=== PATIENT | male | born 1980 | race Caucasian/White ===

== ENCOUNTER 2019-12-21 09:55 | Inpatient (IN) | payer OTHER ==
[2019-12-21] MEDS ORDERED: Ondansetron INJ* 2 MG/ML VIAL IV ONE ×2 (10:02→13:45)
[2019-12-21] MEDS ORDERED: NS 0.9% 1000 ML** 1,000 ML IV ONE ×5 (10:02→15:04)
[2019-12-21] MEDS ORDERED: Lorazepam PYXIS KEY PRN (10:10)
[2019-12-21] MEDS ORDERED: LORazepam INJ* 2 MG/ML 1 ML VIAL IV PUSH ONE (10:10)
--- NOTE | 2019-12-21 10:17 | ED ---
Nausea/Vomiting/Diarrhea HPI - HPI Summary HPI Summary: This patient is a 39-year-old otherwise healthy male who presents to the ED with a 2 day history of nausea and vomiting and now with hand and leg cramping. He states this has happened to him in the past a few years ago when he became very dehydrated. He does have sweats and chills, usually immediately following his vomiting episodes. He has vomited approximately 5-8 times per day. He has been unable to keep anything down for the past 2 days. He has only tried to drink water, he has not tried to eat. He denies any fevers. He denies any health problems. Takes no medications. Denies any allergies. Patient states he lives with his girlfriend who is not currently ill. He has not eaten anything abnormal. No travel. Also endorses diarrhea x 1. This is controlled and denies any evidence of melena. - History of Current Complaint Chief Complaint: EDNauseaVomitDiarrh Stated Complaint: NAUSEA/ VOMITING CHEST PAIN PER PT Time Seen by Provider: 12/21/19 10:01 Hx Obtained From: Patient Onset/Duration: Sudden Onset Timing: Constant Severity Initially: Moderate Severity Currently: Moderate Pain Intensity: 0 Pain Scale Used: 0-10 Numeric Aggravating Factor(s): Nothing Alleviating Factor(s): Nothing Vomiting Frequency: Every 15-60 minutes Nausea/Vomiting Duration: 12-24 hours Vomiting Characteristics: Retching Diarrhea Presence: Yes Diarrhea Frequency: Daily Diarrhea Duration: 0-12 hours Diarrhea Characteristics: Watery - Risk Factors Influenza Risk Factors: Negative - Allergies/Home Medications Allergies/Adverse Reactions: Allergies Allergy/AdvReac Type Severity Reaction Status Date / Time No Known Allergies Allergy Verified 12/21/19 13:07 PMH/Surg Hx/FS Hx/Imm Hx Previously Healthy: Yes - Immunization History Hx Pertussis Vaccination: No Immunizations Up to Date: Yes Infectious Disease History: No Infectious Disease History: Denies: Traveled Outside the [place] in Last 30 Days - Social History Occupation: Employed Full-time Lives: Alone Alcohol Use: Weekly Hx Substance Use: No Substance Use Type: Reports: None Hx Tobacco Use: No Smoking Status (MU): Never Smoked Tobacco Review of Systems Positive: Chills, Skin Diaphoresis. Negative: Fever, Fatigue Negative: Blurred Vision Negative: Dental Pain Negative: Shortness Of Breath, Cough Positive: Abdominal Pain - LUQ, Vomiting, Diarrhea, Nausea Genitourinary: Negative Positive: no symptoms reported, see HPI Negative: Arthralgia, Myalgia Skin: Negative All Other Systems Reviewed And Are Negative: Yes Physical Exam Triage Information Reviewed: Yes Vital Signs On Initial Exam: Initial Vitals Temp Pulse Resp BP Pulse Ox 98.8 F 131 20 112/91 99 12/21/19 09:58 12/21/19 09:58 12/21/19 09:58 12/21/19 09:58 12/21/19 09:58 Vital Signs Reviewed: Yes Appearance: Positive: Ill-Appearing, Pain Distress, Thin Skin: Positive: Diaphoretic Head/Face: Positive: Normal Head/Face Inspection Eyes: Positive: Conjunctiva Inflammed Neck: Positive: Supple, No Lymphadenopathy Respiratory/Lung Sounds: Positive: Clear to Auscultation, Breath Sounds Present Cardiovascular: Positive: RRR, Pulses are Symmetrical in both Upper and Lower Extremities Musculoskeletal: Positive: Normal, Strength/ROM Intact Neurological: Positive: Speech Normal Psychiatric: Positive: Normal, Affect/Mood Appropriate AVPU Assessment: Alert Procedures - Sedation Patient Received Moderate/Deep Sedation with Procedure: No Diagnostics - Vital Signs Vital Signs Temp Pulse Resp BP Pulse Ox 12/21/19 09:58 98.8 F 131 20 112/91 99 - Laboratory Result Diagrams: 12/21/19 11:00 12/21/19 11:00 Lab Statement: Any lab studies that have been ordered have been reviewed, and results considered in the medical decision making process. Naus/Vom/Diarrhea Course/Dx - Course Course Of Treatment: During the course of treatment, the patient is evaluated for nausea, vomiting, diarrhea. Symptoms have been present 2 days. He hasn't been unable to keep anything down. He states he is dehydrated. He is also endorsing a cramping in his hands and legs. He states he has had this in the past. Endorses intermittent alcohol use every few days, denies smoking history , no drug use. On arrival into the ED, the patient appears in distress. Patient is shaking and states he is concerned about the cramping in his hands and legs. Lungs CTA. RRR. No abd tenderness throughout. Labs obtained. Mag 0.07. CT shows intussusception. Discussed with Dr. Merritt and Dr. Manuel. Pt will be admitted. During his stay, he was given. 3 L fluids, 8 mg Zofran, 10 mg Reglan, 8 mg morphine, Zosyn and 4 mg magnesium. Hepatis panel ordered. - Differential Dx/Diagnosis Provider Diagnosis: Pneumonia, Shortness of breath Condition At Discharge: Fair - Physician Notification/Consults Discussed Case/Management/Disposition Of Patient With: Latia Manuel Instructed by Provider To: Admit As Inpatient Discharge ED - Sign-Out/Discharge Documenting (check all that apply): Patient Departure - Discharge Plan Condition: Fair Disposition: ADMITTED TO [facility] - Billing Disposition and Condition Condition: FAIR Disposition: Admitted to [facility] - Attestation Statements Provider Attestation: I was available for consult. This patient was seen by the ANISH. The patient was not presented to, seen by, or examined by me. Lucho Landa MD Critical Care Provided - Critical Care Note Critical Care Provided For: Critical Care Statement: (Excludes time required for other billable procedures)
[2019-12-21 11:29] LABS: Hematocrit 46 % (42-52); Hemoglobin 16.2 g/dL (14.0-18.0); Mean Corpuscular HGB Conc 35 g/dL (31-36); Mean Corpuscular Hemoglobin 34 pg (27-31); Mean Corpuscular Volume 98 fL (80-94); Mean Platelet Volume 9.4 fL (7.4-10.4); Platelet Count 197 10^3/uL (150-450); Red Blood Count 4.74 10^6 /uL (4.18-5.48); Red Cell Distribution Width 14 % (10-15)
[2019-12-21 11:48] LABS: ABS Lymphocytes 1.1 10^3/ul (1.0-4.8); ABS Monocytes 0.8 10^3/ul (0-0.8); Lymphocyte % 12.7 %; Nucleated Red Blood Cells % 0.1
[2019-12-21 11:54] LABS: ALT 113 U/L (7-52); AST 191 U/L (13-39); Albumin 4.4 g/dL (3.2-5.2); Albumin/Globulin Ratio 0.8 (1-3); Alkaline Phosphatase 181 U/L (34-104); Anion Gap 23 mmol/L (2-11); BUN/Creatinine Ratio 6.6 (8-20); Blood Urea Nitrogen 10 mg/dL (6-24); C Reactive Protein 3.34 mg/L (<8.01); CO2 Carbon Dioxide 34 mmol/L (22-32); Calcium 9.2 mg/dL (8.6-10.3); Chloride 80 mmol/L (101-111); EGFR African American 62.9 (>60); Globulin 5.5 g/dL (2-4); Glucose 116 mg/dL (70-100); Potassium 4.1 mmol/L (3.5-5.0); Sodium 137 mmol/L (135-145); Total Protein 9.9 g/dL (6.4-8.9)
[2019-12-21 11:56] LABS: Alcohol < 10 mg/dL (<10)
[2019-12-21] MEDS ORDERED: Metoclopramide IV* 5 MG/ML 2 ML VIAL IV ONE (12:00)
[2019-12-21] MEDS ORDERED: Morphine 4 MG/ML VIAL (1 ml) 4 MG/ML VIAL IV ONE ×2 (12:00→13:45)
[2019-12-21 12:02] LABS: Magnesium 0.7 mg/dL (1.9-2.7)
[2019-12-21] MEDS ORDERED: Magnesium Sulf 4 GM/100 ML IV* 4,000 MG/100 ML BAG IVPB ONE (12:04)
[2019-12-21] MEDS ORDERED: Iodixanol* (CONTRAST) 320 MG/ML 100 ML SDV IV ONE (12:13)
[2019-12-21 12:31] LABS: Amylase 112 U/L (29-103); Indirect Bilirubin 1.8 mg/dL (0.3-1.0)
[2019-12-21] MEDS ORDERED: Piperacillin/Tazobac ADVAN(*) 3.375 GM in NS 0.9% 100 ML* 100 ML IVPB ONE (12:33)
[2019-12-21 14:01] LABS: Hepatitis B Surface Antigen Nonreactive (Nonreactive)
[2019-12-21 14:18] LABS: Hepatitis B Surface Ab Immune (Immune)
--- NOTE | 2019-12-21 14:30 | CONSULT ---
Consult Consult: Consult- General Surgery CC: Nausea and vomiting x 2 days HPI: 39 yo M presents to ED for nausea and vomiting that began during the evening 2 days ago. Initially he thought it was food poisoning from some chicken he cooked. Yesterday, the N/V became more frequent and he additionally had diarrhea and hand/foot muscle cramping. That day, he also noticed a bright red tinge of blood in his vomit, after continuous retching. Today there has not been much improvement. He feels slightly dizzy. Confirms loss of appetite, eructation, and L sided abdominal muscle pain that he attributes to vomiting. Last BM was this morning, also diarrhea. He felt similarly some years back when he became dehydrated due to environmental factors and alcohol use. Denies blood in stool, fever, chills, chest pain, SOB. Surgical history: Cholecystectomy, indirect hernia repair as child, ulnar collateral ligament reconstruction. Denies problems ever with anesthesia, bleeding, or clotting. Social history: Never smoker. A couple etoh drinks /week. Denies drug use otherwise. PMH: Pancreatitis. Home medications: Denies any. Family history: Adopted. Allergies: NKDA. ROS: 12 point ROS negative, except as otherwise stated above. Temp Pulse Resp BP Pulse Ox 98.8 F 108 20 107/74 95 12/21/19 09:58 12/21/19 14:06 12/21/19 14:14 12/21/19 14:06 12/21/19 14:06 Laboratory Last Values WBC 9.0 10^3/uL (3.5-10.8) 12/21/19 11:00 RBC 4.74 10^6 /uL (4.18-5.48) 12/21/19 11:00 Hgb 16.2 g/dL (14.0-18.0) 12/21/19 11:00 Hct 46 % (42-52) 12/21/19 11:00 MCV 98 fL (80-94) H 12/21/19 11:00 MCH 34 pg (27-31) H 12/21/19 11:00 MCHC 35 g/dL (31-36) 12/21/19 11:00 RDW 14 % (10-15) 12/21/19 11:00 Plt Count 197 10^3/uL (150-450) 12/21/19 11:00 MPV 9.4 fL (7.4-10.4) 12/21/19 11:00 Neut % (Auto) 77.4 % 12/21/19 11:00 Lymph % (Auto) 12.7 % 12/21/19 11:00 Davidson % (Auto) 9.4 % 12/21/19 11:00 Eos % (Auto) 0.0 % 12/21/19 11:00 Baso % (Auto) 0.5 % 12/21/19 11:00 Absolute Neuts (auto) 7.0 10^3/ul (1.5-7.7) 12/21/19 11:00 Absolute Lymphs (auto) 1.1 10^3/ul (1.0-4.8) 12/21/19 11:00 Absolute Monos (auto) 0.8 10^3/ul (0-0.8) 12/21/19 11:00 Absolute Eos (auto) 0.0 10^3/ul (0-0.6) 12/21/19 11:00 Absolute Basos (auto) 0.0 10^3/ul (0-0.2) 12/21/19 11:00 Absolute Nucleated RBC 0.0 10^3/ul 12/21/19 11:00 Nucleated RBC % 0.1 12/21/19 11:00 Sodium 137 mmol/L (135-145) 12/21/19 11:00 Potassium 4.1 mmol/L (3.5-5.0) 12/21/19 11:00 Chloride 80 mmol/L (101-111) L 12/21/19 11:00 Carbon Dioxide 34 mmol/L (22-32) H 12/21/19 11:00 Anion Gap 23 mmol/L (2-11) H 12/21/19 11:00 BUN 10 mg/dL (6-24) 12/21/19 11:00 Creatinine 1.51 mg/dL (0.67-1.17) H 12/21/19 11:00 Est GFR ( Amer) 62.9 (>60) 12/21/19 11:00 Est GFR (Non-Af Amer) 52.0 (>60) 12/21/19 11:00 BUN/Creatinine Ratio 6.6 (8-20) L 12/21/19 11:00 Glucose 116 mg/dL (70-100) H 12/21/19 11:00 Lactic Acid 9.3 mmol/L (0.5-2.0) H* 12/21/19 11:00 Calcium 9.2 mg/dL (8.6-10.3) 12/21/19 11:00 Magnesium 0.7 mg/dL (1.9-2.7) L* 12/21/19 11:00 Total Bilirubin 3.10 mg/dL (0.2-1.0) H 12/21/19 11:00 Direct Bilirubin 1.30 mg/dL (0.03-0.18) H 12/21/19 11:00 Indirect Bilirubin 1.8 mg/dL (0.3-1.0) H 12/21/19 11:00 AST 191 U/L (13-39) H 12/21/19 11:00 ALT 113 U/L (7-52) H 12/21/19 11:00 Alkaline Phosphatase 181 U/L (34-104) H 12/21/19 11:00 C-Reactive Protein 3.34 mg/L (<8.01) 12/21/19 11:00 Total Protein 9.9 g/dL (6.4-8.9) H 12/21/19 11:00 Albumin 4.4 g/dL (3.2-5.2) 12/21/19 11:00 Globulin 5.5 g/dL (2-4) H 12/21/19 11:00 Albumin/Globulin Ratio 0.8 (1-3) L 12/21/19 11:00 Amylase 112 U/L (29-103) H 12/21/19 11:00 Lipase 171 U/L (11.0-82.0) H 12/21/19 11:00 Serum Alcohol < 10 mg/dL (<10) 12/21/19 11:00 Additional labs: Hep C positive PEX General: Alert, in NAD. Slight tremor. Integumentary: No jaundice, lesions, petechia. HEENT: Oropharynx clear. Trachea midline. PERRLA. Heart: Tachycardic. S1, S2 present. No murmurs, rubs, or gallups. Lungs: CTAB, no WRR. ABD: BS present. Soft, nondistended. Mild tenderness in epigastrium and left abdomen. No guarding or rebound tenderness. Extremities: Distal pulses intact bilaterally. No edema. Calves soft and nontendner. CT abd/pelvis w: 2 separate short segment of intussusception of the small bowel without obstruction. Fatty infiltrate of the liver. Diverticulosis. Assessment and plan: 39 yo M with nausea and vomiting, intussusception on CT. IV fluid resuscitation, nausea control, replete magnesium. He is not in need of immediate surgical intervention. Discussed with Dr. Merritt, surgeon residential direct support professional.
[2019-12-21 14:39] LABS: Hepatitis C Antibody Reactive (Negative)
[2019-12-21] MEDS ORDERED: Morphine INJ* 2 MG/ML 1 ML SYRINGE (TWO MG - NEW SYRINGE VERSION) IV PRN (14:48)
[2019-12-21] MEDS ORDERED: Albuterol/Ipratropium NEB.SOL* (2.5/0.5 MG) 3 ML NEB.SOLN INH PRN (14:48)
--- NOTE | 2019-12-21 15:26 | HP ---
History of Present Illness - History of Present Illness Reason for Visit: Nausea and vomitting History of Present Illness: 39 yo M with no significant medical history other than pancreatitis leading to a cholecystectomy in 2014, he presented to ED for nausea and vomiting beginning since Thursday. It also accompanied with liquid diarrhea, and mild abdominal pain. Initially he thought it was food poisoning from some chicken he cooked. Yesterday, he continued to have nausea and vomiting, he was unable to take food or liquid since Thursday. He didn't pee since yesterday. His last BM was this morning 3am, still liquid, no blood seen. He did notice some blood tinged vomitus as well, but that was transient. He did have mild abdominal pain which was not bothering him, initially in the LLQ, now going to RLQ. When I saw him in ED, he was having bad hiccups, he was shaking, he contributed to his severe dehydration. He denied any fever in the past few days, no chills, no cough, no SOB. In ED, he was given IV NS 3L in total, one dose of IV Mg. He was given ativan one dose as well for his tremor. He was found to have transaminitis with elevated bilirubin, elevated amylase and lipase, CTAP revealed 2 separate short segment of intussusception of the small bowel without obstruction. He was screened for hepc which is back positive, he admitted that he had 50 sexual partners when returned for further history, also he admitted weight loss. - Past Medical History Past Medical History: Pancreatitis which lead to cholecystectomy in 2015 Denied other medical history, no PCP - Past Surgical History Past Surgical History: Cholecystectomy for pancreatitis in 2015 Indirect hernia repair as child ulnar collateral ligament reconstruction. - Past Family History Past Family History: Adopted, no contact with family members - Past Social History Past Social History: Moved from [place] 4 months ago to stay together with his current girlfriend who works in [employer]. Stays with his girlfriend, had 50 sexual partners in total. Never smoker. 2-3 etoh drinks /week. Denies drug use otherwise. Medications: Home Medications Medication Instructions Recorded Confirmed Type NK [No Home Medications Reported] 12/21/19 12/21/19 History Allergies/Adverse Reactions: Allergies Allergy/AdvReac Type Severity Reaction Status Date / Time No Known Allergies Allergy Verified 12/21/19 13:07 Review of Systems - Review of Systems Constitutional: Negative: Fever, Chills, Sweats, Malaise, Other Eyes: Negative: Pain, Vision Change, Conjunctivae Inflammation, Eyelid Inflammation, Redness, Other ENT: Negative: Ear Pain, Ear Discharge, Nose Pain, Nose Discharge, Nose Congestion, Mouth Pain, Mouth Swelling, Throat Pain, Throat Swelling, Other Respiratory: Negative: Cough, Dry, Shortness of Breath, Hemoptysis, SOB with Excertion, Pleuritic Pain, Sputum, Wheezing Cardiovascular: Negative: Chest Pain, Palpitations, Orthopnea, Paroxysmal Noc. Dyspnea, Edema, Light Headedness, Other Gastrointestinal: Positive: Nausea, Vomiting, Abdominal Pain, Diarrhea. Negative: Constipation, Melena, Hematochezia, Other Genitourinary: Negative: Dysuria, Frequency, Incontinence, Hematuria, Retention , Other Musculoskeletal: Negative: Neck Pain, Shoulder Pain, Arm Pain, Back Pain, Hand Pain, Leg Pain, Foot Pain, Other Skin: Positive: Rash - macular rashes with scaly appearance on bilateral ni Neurological/Mental Status: Positive: Weakness. Negative: Numbness, Incoordination, Change in Speech, Confusion, Seizures, Other Exam Vital Signs: Vital Signs (72 hours) 12/21/19 12/21/19 12/21/19 09:58 10:36 11:00 Temperature 98.8 F Pulse Rate 131 110 Respiratory 20 13 19 Rate Blood Pressure 112/91 117/87 (mmHg) O2 Sat by Pulse 99 96 Oximetry 12/21/19 12/21/19 12/21/19 11:05 11:06 11:36 Temperature Pulse Rate Respiratory 20 28 19 Rate Blood Pressure 109/86 119/93 (mmHg) O2 Sat by Pulse Oximetry 12/21/19 12/21/19 12/21/19 12:00 12:06 12:36 Temperature Pulse Rate Respiratory 12 23 17 Rate Blood Pressure 123/90 117/95 (mmHg) O2 Sat by Pulse Oximetry 12/21/19 12/21/19 12/21/19 12:37 13:06 13:36 Temperature Pulse Rate 101 99 Respiratory 18 10 Rate Blood Pressure 124/83 (mmHg) O2 Sat by Pulse 97 94 Oximetry 12/21/19 12/21/19 12/21/19 14:00 14:06 14:14 Temperature Pulse Rate 101 108 Respiratory 22 25 20 Rate Blood Pressure 107/74 (mmHg) O2 Sat by Pulse 95 95 Oximetry Exam: General: Alert, in NAD. skinny looking, slight tremor. Integumentary: No jaundice, macular rashes seen in back and scattered on lower abdomen, arms and legs, scaly appearance, no central clearance. HEENT: Oropharynx clear. Trachea midline. PERRLA. Mouth: shortening teeth with many missing teeth, some decay seen Heart: Tachycardic. S1, S2 present. No murmurs, rubs, or gallops. Lungs: clear on auscultation. ABD: BS present. Soft, nondistended. Mild tenderness in LUQ. No guarding or rebound tenderness. Extremities: Distal pulses intact bilaterally. No edema. Calves soft and nontendner. Result Diagrams: 12/21/19 11:00 12/21/19 11:00 EKG Data: EKG: QT prolongation, sinus rhythm. Assessment/Plan - Assessment/Plan Assessment: 39 yo M with no significant medical history other than pancreatitis and cholecystectomy in 2014, he presented to ED for nausea and vomiting beginning since Thursday, found to have transaminitis with elevated bilirubin, elevated amylase and lipase, CTAP revealed 2 separate short segment of intussusception of the small bowel without obstruction. He will be admitted to [facility]. Plan: 1. Nausea and vomiting - it's still difficult to tie his lab finding with his CTAP finidngs together. Not sure whether it's his liver function with elevated tehodore lead to this, or it is due to his intersucception. - His liver function is revealing possible bile duct obstruction however CTAP didn't find so. I still have the concern whether this still could be choledocholiathiasis, and whether a MRCP will be needed for that. We called GI consult for this - Surgical team is involved also, awaiting their opinion - NPO now - IV hydration, symptomatic treatment, correcting electrolyte for now - his initial ekg showing prolonged QT interval, it needs to be repeated after replacing electrolytes 2. Intersucception with no obstruction seen - surgical team was consulted for further plan - npo - iv morphine prn 3. lactic acidosis - i ordered another bolus NS and continuous NS 150ml/h - he will be trended for lactic acid - strict i/o to evaluate urine output since patient is severely dehydrated 4. Hepatitis C screen positive - added on hepC RNA - will test HIV and syphilis as well - urine drug screen although pt denied 5. Rash - likely tinea corporis, need to rule out syphillis and HIV - topical fungal cream for now 6. DVT prophylaxis - ambulatory for now
[2019-12-21] MEDS: NS 0.9% 1000 ML** 1,000 ML IV SCH (16:09)
[2019-12-21 16:15] LABS: INR 1.45 (0.82-1.09)
--- NOTE | 2019-12-21 16:30 | PN ---
Progress Note - Progress Note Date of Service: 12/21/19 Note: Patient seen and examined Care discussed with Jatin Lanier and Dr. Manuel History and labs/CT reviewed 2-3 days of N/V and loose BM's with some upper abdominal pain- no fevers, headache. No jaundice, denies IVDA, no travel, no one at home ill, drinks alcohol socially. Lives with girlfriend PEX: Afebrile-HR in 90's Awake and alert, appears anxious and restless Abd is soft and non-distended. Bowel sounds present, no hernias, some mild pain upper quadrants, no lower pain, no rebound or peritoneal irritation. Labs noted CT-2 areas of short segment small bowel instussception without obstruction, also diffuse attenuation of the liver. ? etiology. I think the small bowel findings are incidental and are not causing obstruction- his overall picture is not consistent with a bowel obstruction or bowel ischemia. He appears very dehydrated and has elevated lactic acidosis. Initial hepatitis antibody positive-? significance, awaiting PCR. For now would recommend aggressive fluid rescusitation and observation. He has been seen also by GI. I do not believe there is urgent indication for laparoscopy/laparotomy at this time but this could change depending on clinical course and we will follow closely with you.
[2019-12-21 16:40] LABS: Creatine Kinase 127 U/L (10-223)
--- NOTE | 2019-12-21 17:35 | CONS ---
CC: Dr. Manuel GASTROENTEROLOGY CONSULT REPORT: DATE OF CONSULT: 12/21/19 LOCATION: The patient was seen in the ED. REQUESTING PROVIDER: Dr. Manuel. REASON FOR CONSULT: Abnormal labs. HISTORY OF PRESENT ILLNESS: Mr. Mcintyre is a 39-year-old gentleman with history of acute pancreatitis in the past, who presents with severe nausea, vomiting, diarrhea. Mr. Mcintyre reports that he was in his usual state of health until Thursday. At that time, he developed severe nausea, vomiting, and diarrhea. He has vomited many times since onset of symptoms. Vomiting has not contained any blood. He estimates having at least 15 bowel movements per day. Stool has been brown and watery, although today it is less watery and more stringy. He has not seen any blood in the diarrhea. He has complained of abdominal pain in the right mid and lower abdomen as well as the left mid and lower abdomen. The pain seems to worsen before he vomits. He has never had symptoms like this in the past. Because of the severity of the symptoms, he has been unable to tolerate any p.o. intake in at least the last day or two. He thinks he urinated 3 times yesterday. He describes the urine as being very dark and sinking to the bottom of the toilet. He has not urinated today. He feels very dehydrated. He complains of feeling tremulous and anxious. He has also noticed hand and leg cramping. He denies any alcohol use, medication use, drug use or ingestion of any substances. He and his girlfriend have been isolating at home without any recent exposure to other people or sick contacts. His girlfriend is feeling well. On review of history, Mr. Mcintyre reports that he was hospitalized with pancreatitis in 2014. He was told he also had diverticulitis at that time. He said that there was a workup, but no cause of the pancreatitis was found. He was noted to have gallstones, so he underwent a cholecystectomy after that episode. He adamantly denies any IV drug use. No blood transfusions in the past. No tattoos. He did tell the primary team that he has had at least 50 sexual partners. He was not aware of a diagnosis of hepatitis C or hepatitis exposure in the past. On arrival to the ED, Mr. Deperro was noted to have tachycardia with normal temperature and blood pressure. Labs demonstrated significant abnormalities. He has a very low chloride of 80, creatinine 1.51, lactic acid of 9.3, magnesium 0.7, total bilirubin 3.1, AST 191, ALT 113, alk phos 181, lipase 171. Hepatitis C antibody was reactive. Serum alcohol was negative. CT abdomen and pelvis was performed, which demonstrated 2 separate short segments of intussusception of the small bowel. There was one in the proximal jejunum as well as a short segment of ileoileal intussusception. There were multiple diverticula in the sigmoid colon noted. Liver was noted to be diffusely low in attenuation suggestive of fatty infiltration. There were no liver masses. No intra or extrahepatic biliary dilation noted. Pancreas appeared normal. Spleen appeared normal. GI consulted. PAST MEDICAL HISTORY: 1. Episode of acute pancreatitis in 2014. It appears that this was attributed to gallstones. 2. Anxiety. PAST SURGICAL HISTORY: Cholecystectomy and elbow surgery. MEDICATIONS: None. The patient also denies any nonsteroidal use, Tylenol use, or supplements. ALLERGIES: No known drug allergies. FAMILY HISTORY: No relevant family history noted. SOCIAL HISTORY: The patient is from [place]. Recently moved to [place]. He lives with his girlfriend. Not working at this time. Denies any smoking. Reports occasional alcohol use. He says he will drink socially and drink 2 to 3 alcoholic beverages at a time. Denies any IV drug use or other drug use. REVIEW OF SYSTEMS: A 10-point systems reviewed and negative except as mentioned above. Of note, the patient denies any fever. He reports that his weight fluctuates. Denies any significant recent weight loss. PHYSICAL EXAM: Vital Signs: Afebrile, heart rate initially 131. Most recent heart rate 90s. Blood pressure 131/84. Respiratory rate 20. 95% on room air. General: Tremulous, thin gentleman. Pleasant and cooperative with interview. HEENT: Small ground-down appearing front teeth Cardiovascular: Intermittently tachycardic. Pulmonary: Breathing comfortably. Abdomen: Soft and nondistended. No guarding. Mildly tender diffusely, although more noticeably in the lower quadrants. Extremities: Thin. Tremulous. DIAGNOSTIC STUDIES/LAB DATA: Labs reviewed. White count 9, hemoglobin 16.2, hematocrit 46, MCV 98, platelet count 197. Differential is within normal limits. Comprehensive panel reviewed. Chloride 80, carbon dioxide 34 with an anion gap of 23, BUN 10, creatinine 1.51, glucose 116, lactic acid 9.3, magnesium 0.7. Bilirubin 3.1 with a direct component of 1.3 and indirect component of 1.8, AST 191, ALT 113, alk phos 181 with a GGT of 1502. CRP of 3.34. Total protein of 9.9, albumin 4.4. Amylase 112, lipase 171 with an upper limit of normal 82. Serum alcohol less than 10. Hepatitis B antibody immune, hepatitis C surface antigen nonreactive, hepatitis C antibody reactive. Imaging: CT abdomen and pelvis reviewed in HPI. There were 2 separate short segments of intussusception in the small bowel as well as fatty infiltration of the liver and diverticulosis. IMPRESSION AND RECOMMENDATIONS: Mr. Mcintyre is a 39-year-old gentleman with history of pancreatitis attributed per report to gallstones, who is admitted with severe acute nausea, vomiting, diarrhea, and abdominal pain. Several days of acute severe nausea/vomiting, abdominal pain, and diarrhea. Significant lab abnormalities, including: hypochlorhydria, acute kidney injury, significant lactic acidosis, severe hypomagnesemia, predominantly indirect hyperbilirubinemia, and elevated AST, ALT , and alk phos. It is certainly possible that a number of the patient's lab abnormalities may be secondary to hypovolemia. Possible that an infectious etiology underlies the intussusception and GI symptoms. Agree with supportive care in form of aggressive fluid resuscitation and electrolyte management. Further work-up can be directed by trend of labs and symptoms. # Elevated LFTs: Mixed pattern. No biliary dilation on CT. May be related to acute infectious process or toxin/drug ingestion (although patient denies). Chronic underlying liver disease also considered. Elevated lactate may be related to decreased clearance from hepatic or renal disease. - Repeat labs, including LFTs, this evening and tomorrow to better assess trend after fluid resuscitation - Check INR - Recommend checking CK given elevated AST - Recommend hemolysis labs given indirect hyperbilirubinemia - Check Hep C PCR to clarify if Hep C Ab indicates resolved or chronic infection - Urine drug screen ordered. - Consider further labs to evaluate for alternate explanations for liver disease if lab abnormalities persist - Consider MRCP given elevated Alk phos and mildly elevated direct bilirubin, although I have a lower suspicion for obstructive process. # Diarrhea, Vomiting, Small Bowel Intussusception: Favor infectious etiology given acute onset. Crohn's less likely, particularly given normal CRP. Malignancy also less likely given two separate foci of intussusception unless there is an infiltrative process. Elevated lactate can occur from bowel ischemia related to intussusception, although the imaging findings are not particularly impressive. - Send stool culture - Consider MR enterography (vs UGI series) to evaluate small bowel further - Surgery consulted. # Elevated Lipase: Lipase 2 times ULN. No pancreatitis on imaging. Clinical symptoms not typical for pancreatitis. May be related to significant volume depletion and acute illness. - Monitor for now. Thank you very much for this consult. GI will continue to follow along. [id number]/[facility] #: [id number] NISHI
[2019-12-21] MEDS: LORazepam TAB(*) 1 MG PO SCH ×4 (17:50→23:25)
[2019-12-21] MEDS ORDERED: Thiamine INJ* 100 MG/ML 2 ML VIAL IM ONE (18:00)
[2019-12-21 19:12] LABS: Urine Appearance Cloudy; Urine Bilirubin Negative (Negative); Urine Blood Negative (Negative); Urine Color Amber; Urine Glucose Negative (Negative); Urine Ketones 1+ (Negative); Urine Nitrite Negative (Negative); Urine Protein 1+(30 mg/dL) (Negative); Urine Urobilinogen Positive (Negative)
[2019-12-21 19:19] LABS: Urine Bacteria Absent (Absent); Urine Red Blood Cell Absent (Absent); Urine White Blood Cell Absent (Absent)
[2019-12-21 19:44] LABS: HIV 4th Generation Nonreactive (Nonreactive)
[2019-12-21 20:01] LABS: EGFR African American 101.2 (>60); EGFR Non-African American 83.6 (>60); Magnesium 2.1 mg/dL (1.9-2.7); Potassium 3.1 mmol/L (3.5-5.0)
[2019-12-21 20:08] LABS: Calcium 6.2 mg/dL (8.6-10.3)
[2019-12-21] MEDS: Ondansetron INJ* 2 MG/ML VIAL IV PRN (20:45)
[2019-12-21] MEDS ORDERED: Potassium Chlor TAB* 20 MEQ TAB.ER PO ONE (21:00)
[2019-12-21] MEDS ORDERED: CALCIUM GLUCONATE 1GM/50ML NS 1 GM/50 ML BAG IV ONE (21:00)
[2019-12-22] MEDS: LORazepam TAB(*) 1 MG PO SCH ×2 (01:23→16:58)
[2019-12-22] MEDS: Ondansetron INJ* 2 MG/ML VIAL IV PRN (01:24)
[2019-12-22] MEDS ORDERED: Lorazepam PYXIS KEY PRN (01:43)
[2019-12-22] MEDS ORDERED: Ziprasidone IM INJ* 20 MG/ML VIAL IM ONE ×2 (02:19→04:09)
[2019-12-22] MEDS ORDERED: PROCHLORPERAZINE INJ 5 MG/ML 2 ML VIAL IV PRN (02:20)
[2019-12-22] MEDS: Pantoprazole IV* 40 MG IV SCH ×2 (03:08→14:12)
[2019-12-22] MEDS: LORazepam INJ* 2 MG/ML 1 ML VIAL IV PUSH PRN ×2 (03:37→10:24)
[2019-12-22] MEDS ORDERED: LORazepam INJ* 2 MG/ML 1 ML VIAL IV PUSH ONE (04:05)
[2019-12-22] MEDS: NS 0.9% 1000 ML** 1,000 ML IV SCH ×2 (04:26→12:09)
[2019-12-22 08:02] LABS: Albumin 2.7 g/dL (3.2-5.2); CO2 Carbon Dioxide 22 mmol/L (22-32); Calcium 6.6 mg/dL (8.6-10.3); Chloride 100 mmol/L (101-111); Sodium 134 mmol/L (135-145)
[2019-12-22 08:08] LABS: ALT 62 U/L (7-52); Albumin/Globulin Ratio 0.7 (1-3); Alkaline Phosphatase 110 U/L (34-104); BUN/Creatinine Ratio 10.5 (8-20); Blood Urea Nitrogen 9 mg/dL (6-24); EGFR African American 120.4 (>60); EGFR Non-African American 99.5 (>60); Globulin 3.7 g/dL (2-4); Glucose 81 mg/dL (70-100); Total Protein 6.4 g/dL (6.4-8.9)
[2019-12-22 08:13] LABS: Anion Gap 12 mmol/L (2-11)
[2019-12-22 09:56] LABS: ABS Lymphocytes 1.1 10^3/ul (1.0-4.8); ABS Monocytes 0.4 10^3/ul (0-0.8); ABS Neutrophils 3.9 10^3/ul (1.5-7.7); Eosinophil % 0.6 %; Hematocrit 34 % (42-52); Hemoglobin 11.7 g/dL (14.0-18.0); Lymphocyte % 20.2 %; Mean Corpuscular HGB Conc 34 g/dL (31-36); Mean Corpuscular Hemoglobin 34 pg (27-31); Mean Corpuscular Volume 99 fL (80-94); Mean Platelet Volume 8.5 fL (7.4-10.4); Platelet Count 119 10^3/uL (150-450); Red Blood Count 3.45 10^6 /uL (4.18-5.48); Red Cell Distribution Width 15 % (10-15); White Blood Count 5.5 10^3/uL (3.5-10.8)
[2019-12-22 10:04] LABS: INR 1.5 (0.82-1.09)
[2019-12-22] MEDS: Thiamine TAB* 100 MG TAB PO SCH (10:06)
[2019-12-22] MEDS: Multivitamins/Minerals TAB PO SCH (10:06)
[2019-12-22 10:13] LABS: Potassium Redraw 3.3 mmol/L (3.5-5.0)
--- NOTE | 2019-12-22 11:01 | PN ---
Progress Note - Progress Note Date of Service: 12/22/19 Note: Surgery Progress: S: (apparently being ruled out for Covid 2/2 GI sx). States he has abd pain, mostly left-sided, colicky in nature. Admits to nausea and has vomited last night and this a.m. States he has passed both flatus and stool. O: Vital Signs - 8 hr 12/22/19 12/22/19 12/22/19 03:22 03:37 04:20 Temperature 98.5 F Pulse Rate 91 Respiratory 20 20 20 Rate Blood Pressure 115/93 (mmHg) O2 Sat by Pulse 98 Oximetry 12/22/19 12/22/19 12/22/19 05:20 06:31 06:32 Temperature 98.2 F Pulse Rate 84 Respiratory 20 20 20 Rate Blood Pressure 92/68 (mmHg) O2 Sat by Pulse 98 Oximetry 12/22/19 12/22/19 12/22/19 07:25 08:00 08:51 Temperature 98.7 F 98.9 F Pulse Rate 94 89 Respiratory 14 16 16 Rate Blood Pressure 105/63 116/72 (mmHg) O2 Sat by Pulse 97 100 Oximetry 12/22/19 12/22/19 10:17 10:24 Temperature 98.1 F Pulse Rate 89 Respiratory 16 16 Rate Blood Pressure 109/68 (mmHg) O2 Sat by Pulse 100 Oximetry Intake and Output Last 24 Hours 12/20/19 12/21/19 12/22/19 12/23/19 06:59 06:59 06:59 06:59 Intake Total 3290 Output Total 1200 1000 Balance 2090 -1000 Weight 132 lb Intake: IV Fluids 3080 MAG 100 NS (0.9%) 2980 Oral 210 Output: Urine 400 1000 Emesis 800 Other: Estimated Void Large Large # Voids 1 1 Gen: mildly agitated, but cooperative and oriented Heart: reg Lungs: clear Abd: mildly distended (per pt); BS+; soft; mild to moderate tenderness to left of midline w/ some vol guarding. He is able to relax and allow deeper palpation. No specific mass. No peritoneal signs. Labs: Laboratory Tests 12/21/19 12/21/19 12/22/19 11:00 11:00 07:38 WBC 9.0 Hgb 16.2 Potassium Lactic Acid Total Bilirubin 3.10 H 1.80 H GGT 1502 H AST 191 H ALT 113 H 62 H Alkaline Phosphatase 181 H 110 H Amylase 112 H Lipase 171 H 12/22/19 12/22/19 12/22/19 09:47 09:47 09:47 WBC 5.5 Hgb 11.7 L Potassium 3.3 L Lactic Acid 0.7 Total Bilirubin GGT AST 100 H ALT Alkaline Phosphatase Amylase 69 Lipase 90 H A: abd pain, N/V; intussusception on CT, with some overall improvement on clinical exam P: cont NPO for now; patient being transferred to for PUI. Will continue to follow, but no immediate concerns for surgical intervention. Patient understands that he may yet require surgery.
--- NOTE | 2019-12-22 12:28 | PN ---
Progress Note - Progress Note Date of Service: 12/22/19 Note: Surgery Progress Note I saw and examined this patient this morning. I reviewed his clinical information. He is a 39 yo M who presented to the ED yesterday with abdominal pain, nausea, emesis, diarrhea and somewhat altered mental status. He had multiple electrolyte abnormalities, including elevated bilirubin, LFTs, lipase, lactate. On abdominal CT there was a finding of two separate areas of small bowel intussuception but no obstruction. Today he complains of persistent abdominal pain in the LLQ and RLQ. On exam his abdomen is flat, non distended. He is not tender to palpation throughout his abdomen. He was recently transferred up to to rule out for COVID 19 given his unusual GI symptoms. He is also awaiting his hepatitis serologies. It does not appear that ischemic bowel 2/2 intussuception is very likely or the etiology of of his current clinical condition. He should have a repeat CT scan with PO contrast at some point to evaluate for resolution of intussuception as they can be physiologic or resolve on their own.
[2019-12-22] MEDS ORDERED: Potassium Chloride* LIQUID 20 MEQ/15 ML UDC PO ONE (13:09)
[2019-12-22 14:06] LABS: Calcium 6.7 mg/dL (8.6-10.3); Potassium 3.4 mmol/L (3.5-5.0)
[2019-12-22 14:12] LABS: BUN/Creatinine Ratio 10.7 (8-20); EGFR African American 123.7 (>60); EGFR Non-African American 102.3 (>60)
--- NOTE | 2019-12-22 14:27 | PN ---
Progress Note - Progress Note Date of Service: 12/22/19 Note: GI Follow up Note Patient seen and examined. Pain better today. No gross black or blood in stool. No nausea. Denies fever. Now on 4 for COVID r/o. Denies IVDU, blood transfusion before 1991, admits to nasal drug usage when he was young (<20) nothing since. VS: 109/80, P-78, R-18, T-98.3 Gen: alert, oriented x3 HEENT: AT/NC,perrla, eomi, sclera anicteric Abd: soft, mild ttp RLQ, no guarding or rebound Ext: no c/c/e Psych: appropriate mood and affect. Skin: without rash Lab: Hgb 11.7 Bili 1.8 AST 191->100 ALT 113->63 Impression 1.) Small bowel intussusception- likely infectious enteritis. 2.) Elevated liver enzymes 3.) Hepatitis C ab positive 4.) Lactic acidosis 5.) RLQ pain 6.) Anemia Rec: Clinically seems to be improving. Cdiff was cancelled in ER, will reorder. Suspect this is likely infectious enteritis but agree he needs a CT with PO contrast or MRI enterography before discharge after he improves a bit. Does have risk factors for HCV will see if RNA positive. Will need to follow up with us as outpatient if he is. Continue supportive care. For his anemia suspect component of dilution but would get iron studies and folate/B12 given elevated MCV. Zev Epps DO 12/22/19 [id number]
--- NOTE | 2019-12-22 14:31 | PN ---
Subjective Date of Service: 12/22/19 Interval History: Overnight, patient was agitated and combative, he required 6mg iv ativan, 14mg oral ativan, two doses of Geodon in total. This morning, he was heavily sedated, his bed was in a mess with feces on bed sheet. He had a sitter in the room. He reached 2L positive balance after aggressive hydration. No nausea or vomiting seen this morning. Objective Active Medications: Albuterol/Ipratropium (Duoneb (Albuterol 2.5 Mg/Ipratropium 0.5 Mg)) 3 ml INH RT.[id number]-[id number] AWAKE PRN PRN Reason: SOB/WHEEZING Sodium Chloride (Ns 0.9% 1000 Ml) 1,000 mls @ 125 mls/hr IV PER RATE [facility] Last Admin: 12/22/19 12:09 Dose: 125 mls/hr Lorazepam (Ativan Inj*) 0 mg IV PUSH Q2H PRN; Protocol PRN Reason: PER PROTOCOL WAM SCORE Last Admin: 12/22/19 10:24 Dose: 1 mg Miscellaneous (Ativan Pyxis Montero) 1 ea N/A .ATIVAN IV MONTERO PRN PRN Reason: PYXIS MONTERO Morphine Sulfate (Morphine Inj (Syringe))*) 2 mg IV Q4H PRN PRN Reason: PAIN - MILD Multivitamins/Minerals (Theragran/Minerals Tab*) 1 tab PO DAILY [facility] Last Admin: 12/22/19 10:06 Dose: Not Given Pantoprazole Sodium (Protonix Iv*) 40 mg IV Q12H [facility] Last Admin: 12/22/19 03:08 Dose: 40 mg Prochlorperazine Edisylate (Compazine Inj*) 5 mg IV Q6H PRN PRN Reason: NAUSEA/VOMITING Thiamine HCl (Vitamin B-1 Tab*) 100 mg PO DAILY [facility] Last Admin: 12/22/19 10:06 Dose: Not Given Vital Signs - 8 hr 12/22/19 12/22/19 12/22/19 06:31 06:32 07:25 Temperature 98.7 F Pulse Rate 94 Respiratory 20 20 14 Rate Blood Pressure 105/63 (mmHg) O2 Sat by Pulse 97 Oximetry 12/22/19 12/22/19 12/22/19 08:00 08:51 10:17 Temperature 98.9 F 98.1 F Pulse Rate 89 89 Respiratory 16 16 16 Rate Blood Pressure 116/72 109/68 (mmHg) O2 Sat by Pulse 100 100 Oximetry 12/22/19 12/22/19 12/22/19 10:24 11:20 11:57 Temperature 98 F Pulse Rate 82 Respiratory 16 16 19 Rate Blood Pressure 152/112 (mmHg) O2 Sat by Pulse 98 Oximetry 12/22/19 13:13 Temperature 98.3 F Pulse Rate 78 Respiratory 18 Rate Blood Pressure 109/80 (mmHg) O2 Sat by Pulse 100 Oximetry Oxygen Devices in Use Now: None Exam: General: sedated, in NAD. Integumentary: No jaundice, macular rashes seen in back and scattered on lower abdomen, arms and legs, scaly appearance, no central clearance. HEENT: Oropharynx clear. Trachea midline. PERRLA. Mouth: shortening teeth with many missing teeth, some decay seen Heart: Tachycardic. S1, S2 present. No murmurs, rubs, or gallops. Lungs: clear on auscultation. ABD: BS present. Soft, nondistended, RLQ tenderness. No guarding or rebound tenderness. Extremities: Distal pulses intact bilaterally. No edema. Calves soft and nontendner. Result Diagrams: 12/22/19 09:47 12/22/19 09:47 EKG Data: EKG: QT prolongation, sinus rhythm. Assess/Plan/Problems-Billing Assessment: 39 yo M with no significant medical history other than gallstone pancreatitis s/ p cholecystectomy in 2014, presented to ED for nausea and vomiting beginning since Thursday, found to have transaminitis with elevated bilirubin, elevated amylase and lipase, CTAP revealed 2 separate short segment of intussusception of the small bowel without obstruction. He was found to be hepC positive, developed alcohol withdrawal DT overnight. - Patient Problems (1) Nausea vomiting and diarrhea Current Visit: Yes Status: Acute Code(s): R11.2 - NAUSEA WITH VOMITING, UNSPECIFIED; R19.7 - DIARRHEA, UNSPECIFIED SNOMED Code(s): 8796207 Comment: - likely gastroenteritis, complicated by liver dysfunction, alcohol withdrawal - stool cs, c.diff pending - symptomatic tx, ivf - allow patient to take clear fluid today if he can tolerate (2) Transaminitis Current Visit: Yes Status: Acute Code(s): R74.0 - NONSPEC ELEV OF LEVELS OF TRANSAMNS & LACTIC ACID DEHYDRGNSE SNOMED Code(s): 377772969 Comment: - transaminitis with elevated bilirubin - could be multifactorial: gastroenteritis, hepc, alcohol use - downtrending today, theodore also downtrending (3) Intussusception of small bowel Current Visit: Yes Status: Acute Code(s): K56.1 - INTUSSUSCEPTION SNOMED Code(s): 946642787 Comment: - CT finding, no obstruction seen - could be related to enteritis - appreciate surgical input - repeat CT with oral contrast to reassess today (4) Alcohol withdrawal Current Visit: Yes Status: Acute Code(s): F10.239 - ALCOHOL DEPENDENCE WITH WITHDRAWAL, UNSPECIFIED SNOMED Code(s): 688683665 Comment: - DT last night - add on ativan scheduled taper - continue WAM (5) Hepatitis C antibody test positive Current Visit: Yes Status: Acute Code(s): R76.8 - OTHER SPECIFIED ABNORMAL IMMUNOLOGICAL FINDINGS IN SERUM SNOMED Code(s): 852238696 Comment: - waiting hep C RNA results - HIV neg, hepB neg, syphilis neg (6) Suspected COVID-19 virus infection Current Visit: Yes Status: Acute Code(s): R68.89 - OTHER GENERAL SYMPTOMS AND SIGNS SNOMED Code(s): 461178246 Comment: - isolate patient to rule out COVID 19 in view of unsual GI sx (7) Anemia Current Visit: Yes Status: Acute Code(s): D64.9 - ANEMIA, UNSPECIFIED SNOMED Code(s): 254507907 Comment: - Hb 11.7, macrocytic - likely dilutional - anemia workup tomorrow (8) DVT prophylaxis Current Visit: Yes Status: Acute Code(s): Z29.9 - ENCOUNTER FOR PROPHYLACTIC MEASURES, UNSPECIFIED SNOMED Code(s): 108116596 Comment: Ambulatory Status and Disposition: Inpatient Medicine. Attestation Documenting Resident: Mitch Supervising Physician: Kaleb Attending/Supervising Physician Comment: Improving today; cause of GI symptoms remains somewhat unclear, as surgery suspects the insussusception is an incidental finding and does not explain LFT abnormalities. Discussed with ID; will rule out covid-19; advance diet. Appreciate GI and surgery's input. Attestation: This service has been performed in part by a resident under the direction of a teaching physician.IKaleb, performed the service, or was physically present during the critical, or montero portions of the service, furnished by the resident. I participated in the management of the patient.
[2019-12-23] MEDS: LORazepam TAB(*) 1 MG PO SCH ×2 (02:40→14:58)
[2019-12-23] MEDS: Pantoprazole IV* 40 MG IV SCH ×2 (02:40→14:58)
[2019-12-23] MEDS: Multivitamins/Minerals TAB PO SCH (07:26)
[2019-12-23] MEDS: Thiamine TAB* 100 MG TAB PO SCH (07:26)
[2019-12-23 08:52] LABS: ABS Eosinophils 0.1 10^3/ul (0-0.6); ABS Lymphocytes 1.2 10^3/ul (1.0-4.8); ABS Monocytes 0.5 10^3/ul (0-0.8); ABS Neutrophils 3.6 10^3/ul (1.5-7.7); Eosinophil % 1.1 %; Hematocrit 36 % (42-52); Hemoglobin 12.6 g/dL (14.0-18.0); Lymphocyte % 22.9 %; Mean Corpuscular HGB Conc 35 g/dL (31-36); Mean Corpuscular Hemoglobin 35 pg (27-31); Mean Corpuscular Volume 99 fL (80-94); Mean Platelet Volume 8.7 fL (7.4-10.4); Platelet Count 124 10^3/uL (150-450); Red Blood Count 3.65 10^6 /uL (4.18-5.48); Red Cell Distribution Width 15 % (10-15); White Blood Count 5.4 10^3/uL (3.5-10.8)
[2019-12-23 09:12] LABS: ALT 80 U/L (7-52); AST 162 U/L (13-39); Albumin 3.3 g/dL (3.2-5.2); Albumin/Globulin Ratio 0.9 (1-3); Alkaline Phosphatase 123 U/L (34-104); Anion Gap 10 mmol/L (2-11); BUN/Creatinine Ratio 5.9 (8-20); Blood Urea Nitrogen 4 mg/dL (6-24); CO2 Carbon Dioxide 26 mmol/L (22-32); Calcium 7.7 mg/dL (8.6-10.3); Chloride 96 mmol/L (101-111); EGFR African American 157.9 (>60); EGFR Non-African American 130.5 (>60); Globulin 3.8 g/dL (2-4); Glucose 85 mg/dL (70-100); Sodium 132 mmol/L (135-145); Total Protein 7.1 g/dL (6.4-8.9)
[2019-12-23 09:17] LABS: % Iron Saturation 26 % (15-55); Iron 85 ug/dL (50-212); Total Iron Binding Capacity 326 mcg/dL (250-450); Transferrin 233 mg/dL (203-362)
[2019-12-23 09:39] LABS: Ferritin 139.6 ng/mL (24-336)
[2019-12-23 09:43] LABS: Folate 16.16 ng/mL (>3.99)
[2019-12-23] MEDS ORDERED: Potassium Chlor TAB* 20 MEQ TAB.ER PO ONE (09:57)
[2019-12-23 10:46] LABS: Indirect Bilirubin 1.1 mg/dL (0.3-1.0)
--- NOTE | 2019-12-23 11:25 | PN ---
Subjective Date of Service: 12/23/19 Interval History: Patient is alert today, no withdrawal sx other than mild tremor. He stated he had frequent diarrhea yesterday (>10 times), today better. He couldn't recall what happened in the past 2 days when he was disoriented. Nurse recorded 3 episodes of watery diarrhea this morning. He tolerated clear liquid diet well. Objective Active Medications: Albuterol/Ipratropium (Duoneb (Albuterol 2.5 Mg/Ipratropium 0.5 Mg)) 3 ml INH RT.[id number] AWAKE PRN PRN Reason: SOB/WHEEZING Sodium Chloride (Ns 0.9% 1000 Ml) 1,000 mls @ 125 mls/hr IV PER RATE [facility] Last Admin: 12/22/19 12:09 Dose: 125 mls/hr Lorazepam (Ativan Inj*) 0 mg IV PUSH Q2H PRN; Protocol PRN Reason: PER PROTOCOL WAM SCORE Last Admin: 12/22/19 10:24 Dose: 1 mg Lorazepam (Ativan Tab(*)) 2 mg PO Q12H LAMAR; Taper Stop: 12/24/19 06:59 Last Admin: 12/23/19 02:40 Dose: 2 mg Miscellaneous (Ativan Pyxis Montero) 1 ea N/A .ATIVAN IV MONTERO PRN PRN Reason: PYXIS MONTERO Morphine Sulfate (Morphine Inj (Syringe))*) 2 mg IV Q4H PRN PRN Reason: PAIN - MILD Multivitamins/Minerals (Theragran/Minerals Tab*) 1 tab PO DAILY [facility] Last Admin: 12/23/19 07:26 Dose: 1 tab Pantoprazole Sodium (Protonix Iv*) 40 mg IV Q12H LAMAR Last Admin: 12/23/19 02:40 Dose: 40 mg Potassium Chloride (Klor Con Er Tab*) 20 meq PO BID LAMAR Stop: 12/25/19 20:59 Prochlorperazine Edisylate (Compazine Inj*) 5 mg IV Q6H PRN PRN Reason: NAUSEA/VOMITING Last Admin: 12/22/19 15:11 Dose: 5 mg Thiamine HCl (Vitamin B-1 Tab*) 100 mg PO DAILY [facility] Last Admin: 12/23/19 07:26 Dose: 100 mg Vital Signs - 8 hr 0412/23/19 12/23/19 05:00 05:10 07:39 Temperature 98.2 F Pulse Rate 62 Respiratory 16 22 16 Rate Blood Pressure 98/61 (mmHg) O2 Sat by Pulse 93 Oximetry 12/23/19 09:00 Temperature 98.1 F Pulse Rate 80 Respiratory 16 Rate Blood Pressure 118/77 (mmHg) O2 Sat by Pulse 100 Oximetry Oxygen Devices in Use Now: None Exam: General: sedated, in NAD. Integumentary: no rash seen HEENT: Oropharynx clear. Trachea midline. PERRLA. Mouth: shortening teeth with many missing teeth, some decay seen Heart: Tachycardic. S1, S2 present. No murmurs, rubs, or gallops. Lungs: clear on auscultation. ABD: BS present. Soft, nondistended, mild RLQ and LLQ tendernss Extremities: Distal pulses intact bilaterally. No edema. Calves soft and nontendner. - Nutrition: Malnutrition Diagnosis/Plan Malnutrition Assessment by Registered Dietitian: Malnutrition Assessment Clinical Characteristics Chronic,Severe Malnutrition Assessment: Inadequate Oral Intake - Pt reports a reduced Criteria appetite x1.5 mos (r/t mental status), though appetite poor x3 days (r/t GI s/sx); currently NPO - Anticipate pt meeting <75% nutrient needs >1 mos (severe) Unintentional Weight Loss - Pt reports unintentional wt loss x1.5 mos, stating it is hard for him to keep wt on; current wt 132lb, UBW 147lb x1.5 mos ago - 10.2% loss x1.5 mos ( severe) Underweight - BMI 17.9 (notable) Malnutrition Assessment: Nutritional Supplementals/Nourishments - Will Interventions send Ensure Clear (240kcal, 8g prot/serv) at B, L, and D daily; will monitor continued acceptance GI Related - Recommend continuing pain mgmt and antiemetic PRN, as well as giving antidiarrheal as indicated; will monitor GI s/sx for impact on intake Malnutrition Assessment: Goals 1) Recommend advancing diet as able 2) Pt will tolerate diet advancement w/o exac/ development of GI s/sx 3) Adequate po intake to support lean body mass , wt gain, and hydration status 4) Improve fluid/electrolyte balance w/ adequate po intake and repletion PRN 5) Maintain bowel regularity w/ adequate po intake and bowel meds w/o exac of diarrhea/ development of constipation Result Diagrams: 12/23/19 08:32 12/23/19 08:32 EKG Data: EKG: QT prolongation, sinus rhythm. Assess/Plan/Problems-Billing Assessment: 39 yo M with no significant medical history other than gallstone pancreatitis s/ p cholecystectomy in 2014, presented to ED for nausea and vomiting beginning since Thursday, found to have transaminitis with elevated bilirubin, elevated amylase and lipase, CTAP revealed 2 separate short segment of intussusception of the small bowel without obstruction. He was also found to be hepC positive, developed alcohol withdrawal DT during this stay. - Patient Problems (1) Nausea vomiting and diarrhea Current Visit: Yes Status: Acute Code(s): R11.2 - NAUSEA WITH VOMITING, UNSPECIFIED; R19.7 - DIARRHEA, UNSPECIFIED SNOMED Code(s): 5286444 Comment: - likely gastroenteritis, complicated by liver dysfunction, alcohol withdrawal - stool cs, c.diff neg - symptomatic tx, ivf - escalate to full liquid diet today (2) Transaminitis Current Visit: Yes Status: Acute Code(s): R74.0 - NONSPEC ELEV OF LEVELS OF TRANSAMNS & LACTIC ACID DEHYDRGNSE SNOMED Code(s): 808281174 Comment: - transaminitis with elevated bilirubin - could be multifactorial: gastroenteritis, hepc, alcohol use - Spoke to GI Dr. Minor today, thought this fit alcohol hepatitis, suggest continue to monitor. In terms of intersucception, repeat a CTAP or MR enterography next week to see resolution (3) Intussusception of small bowel Current Visit: Yes Status: Acute Code(s): K56.1 - INTUSSUSCEPTION SNOMED Code(s): 759517048 Comment: - CT finding, no obstruction seen - could be related to enteritis - appreciate surgical input - repeat CTAP 12/21: one above left illiac crest stay unchanged, one resolving, no e/o bowel obstruction - increase to full liquid today (4) Alcohol withdrawal Current Visit: Yes Status: Acute Code(s): F10.239 - ALCOHOL DEPENDENCE WITH WITHDRAWAL, UNSPECIFIED SNOMED Code(s): 655079346 Comment: - DT this admission - continue ativan scheduled taper - continue WAM - geriatric social work professor consult (5) Hepatitis C antibody test positive Current Visit: Yes Status: Acute Code(s): R76.8 - OTHER SPECIFIED ABNORMAL IMMUNOLOGICAL FINDINGS IN SERUM SNOMED Code(s): 694264122 Comment: - waiting hep C RNA results - HIV neg, hepB neg, syphilis neg (6) Suspected COVID-19 virus infection Current Visit: Yes Status: Acute Code(s): R68.89 - OTHER GENERAL SYMPTOMS AND SIGNS SNOMED Code(s): 850762828 Comment: - isolate patient to rule out COVID 19 in view of unsual GI sx (7) Anemia Current Visit: Yes Status: Acute Code(s): D64.9 - ANEMIA, UNSPECIFIED SNOMED Code(s): 565624597 Comment: - Hb 11.7, macrocytic - likely dilutional - anemia workup unremarkable (8) DVT prophylaxis Current Visit: Yes Status: Acute Code(s): Z29.9 - ENCOUNTER FOR PROPHYLACTIC MEASURES, UNSPECIFIED SNOMED Code(s): 983861525 Comment: Ambulatory Status and Disposition: Inpatient Medicine.
--- NOTE | 2019-12-23 11:54 | PN ---
Progress Note - Progress Note Date of Service: 12/23/19 SOAP: Subjective: Continues to feel much better Occasional left abdominal pain No further N/V, has good appetite, tolerating liquids and wants more Multiple loose BM's Objective: Temp Pulse Resp BP Pulse Ox 98.1 F 80 16 118/77 100 12/23/19 09:00 12/23/19 09:00 12/23/19 09:00 12/23/19 09:00 12/23/19 09:00 Intake & Output 12/21/19 12/22/19 12/23/19 12/24/19 06:59 06:59 06:59 06:59 Intake Total 3290 4431 360 Output Total 1200 1000 Balance 2090 3431 360 Weight 132 lb Intake: IV Fluids 3080 3471 MAG 100 150 NS (0.9%) 2980 3321 Oral 210 960 360 Output: Urine 400 1000 Emesis 800 Other: Estimated Void Large Large Date of Last Bowel t Movement # Bowel Movements 4 Estimated Stool Amount Small # Voids 1 1 PEX: Comfortable Abd is soft and non-distended. Mild pain Left side without mass, rebound or peritoneal irritation Bowel sounds are present Laboratory Results - last 24 hr 12/21/19 12/22/19 12/23/19 16:35 09:47 08:32 WBC 5.4 RBC 3.65 L Hgb 12.6 L Hct 36 L MCV 99 H MCH 35 H MCHC 35 RDW 15 Plt Count 124 L MPV 8.7 Neut % (Auto) 66.3 Lymph % (Auto) 22.9 Fleming % (Auto) 8.8 Eos % (Auto) 1.1 Baso % (Auto) 0.9 Absolute Neuts (auto) 3.6 Absolute Lymphs (auto) 1.2 Absolute Monos (auto) 0.5 Absolute Eos (auto) 0.1 Absolute Basos (auto) 0.0 Absolute Nucleated RBC 0.0 Nucleated RBC % 0.0 Sodium 137 Potassium 3.4 L Chloride 99 L Carbon Dioxide 26 Anion Gap 12 H BUN 9 Creatinine 0.84 Est GFR ( Amer) 123.7 Est GFR (Non-Af Amer) 102.3 BUN/Creatinine Ratio 10.7 Glucose 77 Calcium 6.7 L Iron TIBC % Saturation Unsat Iron Binding Transferrin Ferritin Total Bilirubin Direct Bilirubin Indirect Bilirubin AST ALT Alkaline Phosphatase Total Protein Albumin Globulin Albumin/Globulin Ratio Vitamin B12 Folate Syphilis IgG Antibody Negative 12/23/19 08:32 WBC RBC Hgb Hct MCV MCH MCHC RDW Plt Count MPV Neut % (Auto) Lymph % (Auto) Fleming % (Auto) Eos % (Auto) Baso % (Auto) Absolute Neuts (auto) Absolute Lymphs (auto) Absolute Monos (auto) Absolute Eos (auto) Absolute Basos (auto) Absolute Nucleated RBC Nucleated RBC % Sodium 132 L Potassium 3.0 L Chloride 96 L Carbon Dioxide 26 Anion Gap 10 BUN 4 L Creatinine 0.68 Est GFR ( Amer) 157.9 Est GFR (Non-Af Amer) 130.5 BUN/Creatinine Ratio 5.9 L Glucose 85 Calcium 7.7 L Iron 85 TIBC 326 % Saturation 26 Unsat Iron Binding < 311 Transferrin 233 Ferritin 139.6 Total Bilirubin 2.20 H Direct Bilirubin 1.10 H Indirect Bilirubin 1.1 H AST 162 H ALT 80 H Alkaline Phosphatase 123 H Total Protein 7.1 Albumin 3.3 Globulin 3.8 Albumin/Globulin Ratio 0.9 L Vitamin B12 1437 H Folate 16.16 Syphilis IgG Antibody Assessment: N/V and diarrhea--improved Suspect viral illness Small bowel instussuception-appears improved on CT yesterday--no surgical intervention indicated, continue to follow Covid test pending Plan: Advance diet Will continue to follow-no surgical intervention at present Await further lab workup
[2019-12-23 12:07] LABS: Total Bilirubin 1.8 mg/dL (0.2-1.0)
--- NOTE | 2019-12-23 14:08 | PN ---
Progress Note - Progress Note Date of Service: 12/23/19 Note: GI Follow up Note Patient seen and examined. Pain continues to be better today. Admits to drinking about 12 drinks a week with heavy shots of vodka in 12oz glass. Still tremulous. Appetite good. VS: 109/80, P-78, R-18, T-98.3 Gen: alert, oriented x3, +tremor HEENT: AT/NC,perrla, eomi, sclera anicteric Abd: soft, mild ttp RLQ, no guarding or rebound Ext: no c/c/e Psych: appropriate mood and affect. Skin: without rash Neuro: no asterixis. Lab: Hgb 12 Bili 2.2 Plt 124 AST 191->100-> 162 ALT 113->63->80 Impression 1.) Small bowel intussusception- likely infectious enteritis. 2.) Elevated liver enzymes 3.) Hepatitis C ab positive 4.) Lactic acidosis 5.) RLQ pain 6.) Anemia Rec: Given his ativan requirements, platelet count, INR and level of transaminitis, and alcohol intake I feel that alcoholic hepatitis is likely the predominant medical driver of his liver dysfunction, discussed the need to cease entirely and he states he will do so. Not doing this risks, morbidity and mortality and this was explained in detail. HCV and viral hepatitis may be partially contributing as well. If RNA is positive will plan to treat as outpatient after abstinence achieved. You could do a discriminate function but would be below 32 and no role of steroids. Would do daily INR while here. In terms of his intussusception, reviewed repeat CT some improvement. Timing is a little close to original but improvement argues against mechanical cause. Suspect this was infectious enteritis that is improving. Agree with COVID r/o. Will plan on seeing as outpatient and getting MRI enterography in 4-5 weeks to ensure no evidence of IBD but feel this is less likely with the normal CRP. At D /C have him make appointment with our office for 4-5 week hospital follow up when discharged. Call with questions. Zev Verduzcordan DO 12/23/19 1121
[2019-12-23] MEDS: Potassium Chlor TAB* 20 MEQ TAB.ER PO SCH (22:45)
[2019-12-24] MEDS: LORazepam TAB(*) 1 MG PO SCH (02:56)
[2019-12-24] MEDS: Pantoprazole IV* 40 MG IV SCH (02:57)
[2019-12-24 08:29] VITALS: BP 128/94
[2019-12-24] MEDS: Potassium Chlor TAB* 20 MEQ TAB.ER PO SCH (08:31)
[2019-12-24] MEDS: Thiamine TAB* 100 MG TAB PO SCH (08:32)
[2019-12-24] MEDS: Multivitamins/Minerals TAB PO SCH (08:32)
--- NOTE | 2019-12-24 10:54 | DS ---
CC: Dr. Zev Epps* DISCHARGE SUMMARY: DATE OF ADMISSION: 12/21/19 DATE OF DISCHARGE: 12/24/19 PRINCIPAL DISCHARGE DIAGNOSES: 1. Infectious enteritis. 2. Alcoholic hepatitis. 3. Alcohol withdrawal. 4. COVID, rule out. 5. Intussusception. 6. Hepatitis C virus antibody positive. MEDICATIONS AT THE TIME OF DISCHARGE: 1. Thiamine 100 mg daily. 2. Folic acid 1 mg daily. PHYSICAL EXAMINATION: Temperature 97.5, heart rate 83, respiratory rate 18, pulse ox 100% on room air, blood pressure 128/94. General: Alert, thin, young man, in no distress. HEENT: Pupils equal, round, reactive to light. Oral mucosa is moist. No exudates or erythema or lesions in oral mucosa. Neck: No JVP or adenopathy. Chest: He is in a regular rate and rhythm with no murmurs. His lungs are clear bilaterally. Abdomen is scaphoid, nontender, nondistended. His liver is palpable at the costal margin. His spleen is not palpable. He has no guarding or rebound and no CVA tenderness. Extremities: No edema, rashes, or ulcers. Neurologic: He is oriented, appropriate, and expresses good insight into his disease process. PERTINENT STUDIES ON THIS HOSPITALIZATION: An abdomen and pelvis CT on showed 2 separate short segments of intussusception of the small bowel without obstruction and fatty infiltration of the liver. An abdomen and pelvis CT on 12/22/19 shows an area of intussusception in the small bowel remains unchanged from previous exam just above the left iliac crest. Other areas of intussusception anterior to the left kidney has resolved. No evidence of bowel obstruction is noted and hepatic steatosis is present. CONSULTATIONS DURING THIS ADMISSION: Dr. Jorge Merritt and Dr. Talia Echevarria of Surgery and Gastroenterology. HOSPITAL COURSE BY PROBLEM: 1. Infectious enteritis. Mr. Mcintyre presented to the emergency department with nausea, vomiting, and diarrhea. Our suspicion was that this was an infectious enteritis, which also likely predisposed him to intussusception. He was treated with supportive care and improved quickly. 2. Alcoholic hepatitis. Mr. Mcintyre initially was not forthcoming with his amount of alcohol use, however, when he began to withdraw from alcohol on night 1 of admission, alcohol hepatitis was suspected more strongly for the etiology of his elevated liver enzymes and he later admitted to drinking more alcohol than initially discussed. Dr. Epps felt that his pattern of liver enzymes was consistent with alcoholic hepatitis. He did not score high enough on the Maddrey's Discriminant Function score to qualify for steroids. His liver enzymes remained about stable at the time of discharge with little change. He understands that he must not drink alcohol any more. 3. Alcohol withdrawal. He was treated with an Ativan taper as well as WAM Ativan. On the morning of discharge, he is requiring no p.r.n. Ativan. 4. COVID, rule out given his GI symptoms, which initially we did not have a good explanation for. We did test him for CVOID. He was kept on isolation and the test is pending at the time of discharge. He understands the need for isolation from his partner and he has been provided with information for self- isolating. The health department has already been in contact with him and we will follow up with him. 5. Intussusception. At the time of his admission 2 points of intussusception were noted on the CT, abdomen, and pelvis. General surgery was consulted, but felt this was more likely an incidental finding and not contributing to his current presentation. GI recommended a subsequent abdomen and pelvis CT, which showed persistence of one area of the intussusception, but not another. Again, he had no obstructive symptoms, this was not thought to be clinically relevant. However, they will follow up with him as an outpatient and order an MR enterography in several weeks. Mr. Mcintyre understands to follow up with Dr. Epps's office and agrees to call on Thursday. CONDITION AT THE TIME OF DISCHARGE: Stable. Mr. Mcintyre is eating a full diet, has no evidence of withdrawal. He is walking around comfortably and is anxious to be discharged. DISPOSITION: Mr. Mcintyre understands the essential need for followup with both Gastroenterology and a primary care physician, unfortunately this Thursday, so I am unable to arrange a followup appointment with him, but he has been provided the numbers for [facility] and he is motivated to call them on Thursday to get followup appointment to follow up on the results of his hepatitis C PCR and the COVID test, which again should be reported by the health department. He understands that he will need to have repeat blood work that his LFTs remain elevated and a followup will be essential for him. [id number]/[facility] #: [id number] NISHI
== END 2019-12-24 11:30 | disposition home or self-care (01) | DRG 392 ==
LOC: ED 09:55 → SSU 14:39 → MED 12-22 09:55
PROVIDERS: ADMIT Internal Medicine; ATTEND Internal Medicine
DX: A09 Infectious gastroenteritis and colitis, unspecified (principal); F10.239 Alcohol dependence with withdrawal, unspecified; K56.1 Intussusception; E87.2 Acidosis; N17.9 Acute kidney failure, unspecified; K70.10 Alcoholic hepatitis without ascites; Y90.0 Blood alcohol level of less than 20 mg/100 ml; K76.0 Fatty (change of) liver, not elsewhere classified; B19.20 Unspecified viral hepatitis C without hepatic coma; R74.0 Nonspecific elevation of levels of transaminase and lactic acid dehydrogenase [LDH]; B35.4 Tinea corporis; D64.9 Anemia, unspecified; E83.42 Hypomagnesemia
CPT/HCPCS: 36415; 74176; 74177; 80048; 80053; 80320; 81003; 81015; 82150; 82247; 82248; 82271; 82550; 82607; 82728; 82746; 82977; 83010; 83540; 83550; 83605; 83690; 83735; 85025; 85610; 86140; 86706; 86780; 86803; 86880; 87045; 87046; 87340; 87389; 87493; 87522; 87635; 87899; 93005; 96365; 96366; 96375; 99285; A9270-GY; G0480; J0610; J0780; J2060; J2270; J2405; J2543; J2765; J3411; J3475; J3486; Q9967

== ENCOUNTER 2020-03-03 14:44 | Inpatient (IN) ==
[2020-03-03] MEDS ORDERED: NS 0.9% 1000 ml BAG 1,000 ML IV ONE (14:55)
[2020-03-03] MEDS ORDERED: Ondansetron 4 mg VIAL 2 MG/ML 2 ml VIAL IV ONE ×2 (14:56→16:10)
[2020-03-03] MEDS ORDERED: Morphine 4 MG/ML VIAL (1 ml) IV ONE ×2 (14:59→17:45)
[2020-03-03 15:57] LABS: ABS Lymphocytes 1.3 10^3/ul (1.0-4.8); ABS Monocytes 0.9 10^3/ul (0-0.8); Hematocrit 45 % (42-52); Hemoglobin 15.6 g/dL (14.0-18.0); Lymphocyte % 13.7 %; Mean Corpuscular HGB Conc 35 g/dL (31-36); Mean Corpuscular Hemoglobin 35 pg (27-31); Mean Corpuscular Volume 99 fL (80-94); Mean Platelet Volume 8.3 fL (7.4-10.4); Nucleated Red Blood Cells % 0.1; Platelet Count 216 10^3/uL (150-450); Red Blood Count 4.51 10^6 /uL (4.18-5.48); Red Cell Distribution Width 17 % (10-15); White Blood Count 9.5 10^3/uL (3.5-10.8)
[2020-03-03] MEDS ORDERED: diPHENhydraMINE IV 50 MG/ML 1 ml VIAL (BENADRYL) IV ONE (16:02)
[2020-03-03 16:20] LABS: Albumin 3.5 g/dL (3.2-5.2); Albumin/Globulin Ratio 0.7 (1-3); BUN/Creatinine Ratio 3.6 (8-20); C Reactive Protein 2.38 mg/L (<8.01); EGFR African American 125.5 (>60); EGFR Non-African American 103.7 (>60); Globulin 4.8 g/dL (2-4); Potassium 3.1 mmol/L (3.5-5.0); Total Bilirubin 2.1 mg/dL (0.2-1.0); Total Protein 8.3 g/dL (6.4-8.9)
[2020-03-03 16:29] LABS: Magnesium 0.6 mg/dL (1.9-2.7)
[2020-03-03] MEDS ORDERED: Magnesium Sulfate 2 gm BAG 2 GM/50 ML BAG IVPB ONE (16:29)
[2020-03-03] MEDS ORDERED: Iohexol 300 (CONTRAST) 10 ML SDV IV ONE (16:30)
[2020-03-03] MEDS: KCL 10 MEQ/50 ML IVPREMIX 10 MEQ/50 ML BAG IV SCH ×2 (17:05→18:41)
[2020-03-03] MEDS: NS 0.9% 1000 ml BAG 2,000 ML IV ONE ×2 (17:59→18:00)
[2020-03-03] MEDS ORDERED: Magnesium Sulf 4 GM/100 ML IV 4,000 MG/100 ML BAG IVPB ONE (18:08)
[2020-03-03] MEDS ORDERED: HYDROmorphone 0.5 MG/0.5 ML SYRINGE IV SLOW PU PRN (18:32)
[2020-03-03] MEDS ORDERED: Lorazepam PYXIS KEY PRN ×2 (18:41→20:53)
[2020-03-03] MEDS ORDERED: Thiamine 100 MG/ML 2 ml VIAL 100 MG, Folic Acid 1 MG, Multiple Vitamin IV ADULT 10 ML i... IV ONE (19:00)
[2020-03-03 20:20] LABS: BUN/Creatinine Ratio 3.7 (8-20); EGFR African American 127.2 (>60); EGFR Non-African American 105.1 (>60); Magnesium 1.8 mg/dL (1.9-2.7); Potassium 3.9 mmol/L (3.5-5.0)
[2020-03-03] MEDS: HYDROmorphone 1 MG/1 ML SYRINGE IV SLOW PU PRN ×2 (20:30→23:35)
[2020-03-03] MEDS ORDERED: LORazepam 2 mg VIAL 1 ml IV PUSH ONE (20:53)
[2020-03-03] MEDS ORDERED: Lactated Ringers 1000 ml BAG 1,000 ML IV SCH (23:00)
[2020-03-03 23:22] LABS: Urine Appearance Clear; Urine Bilirubin Negative (Negative); Urine Blood Negative (Negative); Urine Color Yellow; Urine Glucose Negative (Negative); Urine Ketones Negative (Negative); Urine Nitrite Negative (Negative); Urine Protein Negative (Negative); Urine Specific Gravity 1.032 (1.010-1.030); Urine Urobilinogen Negative (Negative)
[2020-03-03] MEDS: Ondansetron 4 mg VIAL 2 MG/ML 2 ml VIAL IV PRN (23:35)
[2020-03-04 00:41] LABS: BUN/Creatinine Ratio 3.7 (8-20); Calcium 7.8 mg/dL (8.6-10.3); EGFR African American 127.2 (>60); EGFR Non-African American 105.1 (>60); Potassium 4.1 mmol/L (3.5-5.0)
[2020-03-04] MEDS: Lactated Ringers 1000 ml BAG 1,000 ML IV SCH ×7 (01:12→21:36)
[2020-03-04] MEDS: LORazepam 2 mg VIAL 1 ml IV PUSH SCH ×5 (02:03→14:21)
[2020-03-04] MEDS: HYDROmorphone 1 MG/1 ML SYRINGE IV SLOW PU PRN ×3 (03:31→12:14)
[2020-03-04 04:50] LABS: ABS Basophils 0.1 10^3/ul (0-0.2); ABS Lymphocytes 1.4 10^3/ul (1.0-4.8); ABS Monocytes 0.5 10^3/ul (0-0.8); Eosinophil % 0.6 %; Hematocrit 32 % (42-52); Hemoglobin 11.3 g/dL (14.0-18.0); Lymphocyte % 26.7 %; Mean Corpuscular HGB Conc 35 g/dL (31-36); Mean Corpuscular Hemoglobin 35 pg (27-31); Mean Corpuscular Volume 100 fL (80-94); Mean Platelet Volume 8.2 fL (7.4-10.4); Nucleated Red Blood Cells % 0.2; Platelet Count 121 10^3/uL (150-450); Red Blood Count 3.21 10^6 /uL (4.18-5.48); Red Cell Distribution Width 17 % (10-15); White Blood Count 5.4 10^3/uL (3.5-10.8)
[2020-03-04 05:31] LABS: Albumin 2.4 g/dL (3.2-5.2); Albumin/Globulin Ratio 0.7 (1-3); BUN/Creatinine Ratio 3.9 (8-20); C Reactive Protein 12.34 mg/L (<8.01); Calcium 7.8 mg/dL (8.6-10.3); EGFR African American 136.8 (>60); EGFR Non-African American 113.1 (>60); Globulin 3.3 g/dL (2-4); Magnesium 1.6 mg/dL (1.9-2.7); Potassium 4.1 mmol/L (3.5-5.0); Total Bilirubin 3.7 mg/dL (0.2-1.0); Total Protein 5.7 g/dL (6.4-8.9)
[2020-03-04] MEDS ORDERED: Magnesium Sulfate 2 gm BAG 2 GM/50 ML BAG IVPB ONE (05:35)
[2020-03-04] MEDS: Dexmedetomidine 1,000 MCG in NS 0.9% 250 ml 240 ML IV SCH (13:29)
[2020-03-05] MEDS: Lactated Ringers 1000 ml BAG 1,000 ML IV SCH (01:31)
[2020-03-05] MEDS ORDERED: Lactated Ringers 1000 ml BAG 1,000 ML IV SCH (03:32)
[2020-03-05] MEDS: Dexmedetomidine 1,000 MCG in NS 0.9% 250 ml 240 ML IV SCH (03:44)
[2020-03-05] MEDS ORDERED: Furosemide 20 mg/2 ml IV VIAL IV SLOW PU ONE (04:00)
[2020-03-05 05:51] LABS: Hematocrit 39 % (42-52); Hemoglobin 13.9 g/dL (14.0-18.0); Mean Corpuscular HGB Conc 35 g/dL (31-36); Mean Corpuscular Hemoglobin 35 pg (27-31); Mean Corpuscular Volume 100 fL (80-94); Mean Platelet Volume 8.8 fL (7.4-10.4); Platelet Count 122 10^3/uL (150-450); Red Blood Count 3.93 10^6 /uL (4.18-5.48); Red Cell Distribution Width 17 % (10-15); White Blood Count 5.5 10^3/uL (3.5-10.8)
[2020-03-05 06:17] LABS: Albumin 2.6 g/dL (3.2-5.2); Albumin/Globulin Ratio 0.7 (1-3); BUN/Creatinine Ratio 5.7 (8-20); Calcium 8.6 mg/dL (8.6-10.3); EGFR African American 152.7 (>60); EGFR Non-African American 126.2 (>60); Globulin 3.7 g/dL (2-4); Potassium 3.5 mmol/L (3.5-5.0); Total Bilirubin 5.6 mg/dL (0.2-1.0); Total Protein 6.3 g/dL (6.4-8.9)
[2020-03-05 06:26] LABS: Magnesium 0.9 mg/dL (1.9-2.7)
[2020-03-05] MEDS ORDERED: Dextrose 50% Syringe 50 ml 25 GM/50 ML SYRINGE ONE (06:26)
[2020-03-05] MEDS ORDERED: Magnesium Sulf 4 GM/100 ML IV 4,000 MG/100 ML BAG IVPB ONE (06:27)
[2020-03-05] MEDS: D5NS 0.9% 1000 ml BAG 1,000 ML IV SCH ×2 (06:37→16:37)
[2020-03-05] MEDS ORDERED: Lactated Ringers 1000 ml BAG 1,000 ML IV ONE (07:00)
[2020-03-05] MEDS ORDERED: Dextrose 50% Syringe 50 ml 25 GM/50 ML SYRINGE IV PUSH ONE (08:00)
[2020-03-05] MEDS: Ondansetron 4 mg VIAL 2 MG/ML 2 ml VIAL IV PRN ×4 (13:19→23:49)
[2020-03-05] MEDS ORDERED: Ondansetron 4 mg VIAL 2 MG/ML 2 ml VIAL ONE (16:24)
[2020-03-05] MEDS: HYDROmorphone 1 MG/1 ML SYRINGE IV SLOW PU PRN ×3 (16:29→23:49)
[2020-03-06] MEDS ORDERED: NS 0.9% 500 ml BAG 500 ML IV ONE (01:04)
[2020-03-06] MEDS: D5NS 0.9% 1000 ml BAG 1,000 ML IV SCH ×2 (02:36→09:21)
[2020-03-06] MEDS: Ondansetron 4 mg VIAL 2 MG/ML 2 ml VIAL IV PRN ×2 (03:22→06:46)
[2020-03-06] MEDS: HYDROmorphone 1 MG/1 ML SYRINGE IV SLOW PU PRN ×3 (03:23→10:48)
[2020-03-06 04:48] LABS: Hematocrit 37 % (42-52); Mean Corpuscular HGB Conc 35 g/dL (31-36); Mean Corpuscular Hemoglobin 35 pg (27-31); Mean Corpuscular Volume 100 fL (80-94); Platelet Count 160 10^3/uL (150-450); Red Cell Distribution Width 17 % (10-15); White Blood Count 6.9 10^3/uL (3.5-10.8)
[2020-03-06] MEDS: LORazepam 2 mg VIAL 1 ml IV PUSH SCH ×4 (04:48→10:45)
[2020-03-06 05:02] LABS: Albumin 2.4 g/dL (3.2-5.2); Albumin/Globulin Ratio 0.7 (1-3); BUN/Creatinine Ratio 10.1 (8-20); Calcium 7.5 mg/dL (8.6-10.3); EGFR African American 155.3 (>60); EGFR Non-African American 128.3 (>60); Globulin 3.3 g/dL (2-4); Magnesium 1.3 mg/dL (1.9-2.7); Potassium 3.1 mmol/L (3.5-5.0); Total Bilirubin 4.9 mg/dL (0.2-1.0); Total Protein 5.7 g/dL (6.4-8.9)
[2020-03-06 05:11] LABS: INR 1.78 (0.82-1.09)
[2020-03-06] MEDS: Prochlorperazine 5 mg/ml 2 ml VIAL (10 mg) IV PRN (10:47)
[2020-03-06] MEDS: Thiamine 100 MG/ML 2 ml VIAL 100 MG in NS 0.9% 50 ML 50 ML IV SCH (12:00)
[2020-03-06] MEDS: Dexmedetomidine 1,000 MCG in NS 0.9% 250 ml 240 ML IV SCH (12:01)
[2020-03-06] MEDS: [UNRECOGNIZED DRUG - OTHER] IV SCH (17:14)
[2020-03-06] MEDS: LIPID EMULSION IV SCH (17:14)
[2020-03-06] MEDS: D10W IV SCH (17:14)
[2020-03-06] MEDS: TPN IV SCH (17:14)
[2020-03-07] MEDS: HYDROmorphone 1 MG/1 ML SYRINGE IV SLOW PU PRN ×5 (02:26→20:48)
[2020-03-07] MEDS: Prochlorperazine 5 mg/ml 2 ml VIAL (10 mg) IV PRN ×3 (06:00→20:47)
[2020-03-07 07:28] LABS: Albumin 2.2 g/dL (3.2-5.2); Albumin/Globulin Ratio 0.7 (1-3); BUN/Creatinine Ratio 4.5 (8-20); Calcium 7.7 mg/dL (8.6-10.3); EGFR African American 163.4 (>60); EGFR Non-African American 135.1 (>60); Globulin 3.1 g/dL (2-4); Magnesium 1.2 mg/dL (1.9-2.7); Phosphorus 1.9 mg/dL (2.5-5.0); Potassium 3.2 mmol/L (3.5-5.0); Total Bilirubin 3.8 mg/dL (0.2-1.0); Total Protein 5.3 g/dL (6.4-8.9)
[2020-03-07] MEDS ORDERED: CALCIUM GLUCONATE 1GM/50ML NS 1 GM/50 ML BAG IV ONE (07:53)
[2020-03-07] MEDS ORDERED: Potassium Phosphate IV 15 MMOLE in NS 0.9% 250 ml 250 ML IVPB ONE (07:53)
[2020-03-07] MEDS: Magnesium Sulfate 2 gm BAG 2 GM/50 ML BAG IVPB SCH ×2 (08:40→11:11)
[2020-03-07] MEDS: Ondansetron 4 mg VIAL 2 MG/ML 2 ml VIAL IV PRN ×2 (09:31→16:21)
[2020-03-07] MEDS: Thiamine 100 MG/ML 2 ml VIAL 100 MG in NS 0.9% 50 ML 50 ML IV SCH (09:52)
[2020-03-07] MEDS: Folic Acid 1 mg SYRINGE 0.2 ML SYRINGE IV SCH (11:09)
[2020-03-07] MEDS: KCL 20 MEQ/100 ML IVPREMIX 20 MEQ/100 ML BAG IV SCH ×3 (11:43→17:47)
[2020-03-07] MEDS ORDERED: Metoclopramide 5 MG/ML VIAL (10 mg) IV SLOW PU PRN (17:15)
[2020-03-07] MEDS ORDERED: Metoclopramide 5 MG/ML VIAL (10 mg) ONE (17:23)
[2020-03-07] MEDS ORDERED: KCL 20 MEQ/100 ML IVPREMIX 20 MEQ/100 ML BAG ONE (17:44)
[2020-03-07] MEDS: LIPID EMULSION IV SCH (17:47)
[2020-03-07] MEDS: [UNRECOGNIZED DRUG - OTHER] IV SCH (17:47)
[2020-03-07] MEDS: D10W IV SCH (17:47)
[2020-03-07] MEDS: TPN IV SCH (17:47)
[2020-03-07] MEDS ORDERED: Enoxaparin 40 MG/0.4 ML SYR(*) SUBCUT SCH (18:30)
[2020-03-07 20:10] LABS: BUN/Creatinine Ratio 9.5 (8-20); Blood Urea Nitrogen 6 mg/dL (6-24); CO2 Carbon Dioxide 31 mmol/L (22-32); Calcium 8.2 mg/dL (8.6-10.3); Chloride 99 mmol/L (101-111); EGFR African American 172.5 (>60); EGFR Non-African American 142.5 (>60); Glucose 115 mg/dL (70-100); Magnesium 1.7 mg/dL (1.9-2.7); Phosphorus 2.3 mg/dL (2.5-5.0); Sodium 133 mmol/L (135-145)
[2020-03-07 20:41] LABS: Anion Gap 3 mmol/L (2-11)
[2020-03-07] MEDS ORDERED: Magnesium Sulfate 2 gm BAG 2 GM/50 ML BAG IVPB ONE (22:01)
[2020-03-07] MEDS ORDERED: Metoclopramide 5 MG/ML VIAL (10 mg) IV SLOW PU ONE (22:02)
[2020-03-07] MEDS: LORazepam 2 mg VIAL 1 ml IV PUSH SCH (22:55)
[2020-03-08] MEDS: Ondansetron 4 mg VIAL 2 MG/ML 2 ml VIAL IV PRN ×2 (01:57→16:43)
[2020-03-08] MEDS: Prochlorperazine 5 mg/ml 2 ml VIAL (10 mg) IV PRN (02:56)
[2020-03-08] MEDS: HYDROmorphone 1 MG/1 ML SYRINGE IV SLOW PU PRN ×3 (02:56→20:15)
[2020-03-08] MEDS: LORazepam 2 mg VIAL 1 ml IV PUSH SCH ×3 (03:57→09:04)
[2020-03-08 04:05] LABS: Hematocrit 29 % (42-52); Hemoglobin 10.2 g/dL (14.0-18.0); Mean Corpuscular HGB Conc 35 g/dL (31-36); Mean Corpuscular Hemoglobin 36 pg (27-31); Mean Corpuscular Volume 101 fL (80-94); Mean Platelet Volume 8.6 fL (7.4-10.4); Platelet Count 196 10^3/uL (150-450); Red Blood Count 2.87 10^6 /uL (4.18-5.48); Red Cell Distribution Width 18 % (10-15); White Blood Count 6.5 10^3/uL (3.5-10.8)
[2020-03-08 04:23] LABS: Albumin 2.2 g/dL (3.2-5.2); Albumin/Globulin Ratio 0.7 (1-3); BUN/Creatinine Ratio 15.7 (8-20); Calcium 8.3 mg/dL (8.6-10.3); EGFR African American 152.7 (>60); EGFR Non-African American 126.2 (>60); Phosphorus 2.4 mg/dL (2.5-5.0); Potassium 3.6 mmol/L (3.5-5.0); Total Bilirubin 3.7 mg/dL (0.2-1.0); Total Protein 5.2 g/dL (6.4-8.9)
[2020-03-08 05:08] LABS: ABS Lymphocytes 1.3 10^3/ul (1.0-4.8); ABS Monocytes 0.9 10^3/ul (0-0.8); Eosinophil % 0.2 %; Lymphocyte % 19.6 %; Nucleated Red Blood Cells % 0.1
[2020-03-08] MEDS ORDERED: cefTRIAXone(*) 2 GM ADDV.VIAL 2 GM in NS 0.9% 100 ml BAG 100 ML IV SCH (09:00)
[2020-03-08] MEDS: Thiamine 100 MG/ML 2 ml VIAL 100 MG in NS 0.9% 50 ML 50 ML IV SCH (11:06)
[2020-03-08] MEDS: Folic Acid 1 mg SYRINGE 0.2 ML SYRINGE IV SCH (11:12)
[2020-03-08] MEDS ORDERED: Lorazepam PYXIS KEY ONE (13:48)
[2020-03-08] MEDS: LORazepam 2 mg VIAL 1 ml ONE ×2 (13:50→14:10)
[2020-03-08] MEDS: Pantoprazole 80 mg in NS BAG 80 MG/250 ML BAG IV SCH (15:01)
[2020-03-08] MEDS ORDERED: TPN 24 HR with D10W 1000 ml BAG 1,000 ML, Amino Acid Infusion 10% 850 ML, Sterile Water... IV SCH (17:00)
[2020-03-08] MEDS: Dexmedetomidine 1,000 MCG in NS 0.9% 250 ml 240 ML IV SCH (22:41)
[2020-03-09] MEDS: Cefepime 1 GM in Dextrose(*) 1 GM/50 ML BAG IV SCH ×2 (00:35→13:37)
[2020-03-09] MEDS: Pantoprazole 80 mg in NS BAG 80 MG/250 ML BAG IV SCH ×2 (00:41→09:20)
[2020-03-09 01:19] LABS: ABS Eosinophils 0.1 10^3/ul (0-0.6); ABS Lymphocytes 0.9 10^3/ul (1.0-4.8); ABS Monocytes 0.7 10^3/ul (0-0.8); Eosinophil % 1.4 %; Hematocrit 28 % (42-52); Hemoglobin 9.8 g/dL (14.0-18.0); Lymphocyte % 21.9 %; Mean Corpuscular HGB Conc 35 g/dL (31-36); Mean Corpuscular Hemoglobin 36 pg (27-31); Mean Corpuscular Volume 102 fL (80-94); Mean Platelet Volume 8.4 fL (7.4-10.4); Nucleated Red Blood Cells % 0.1; Platelet Count 168 10^3/uL (150-450); Red Blood Count 2.74 10^6 /uL (4.18-5.48); Red Cell Distribution Width 18 % (10-15); White Blood Count 4.2 10^3/uL (3.5-10.8)
[2020-03-09 01:35] LABS: Albumin 2.1 g/dL (3.2-5.2); Albumin/Globulin Ratio 0.7 (1-3); BUN/Creatinine Ratio 13.8 (8-20); Calcium 7.9 mg/dL (8.6-10.3); EGFR African American 189.7 (>60); EGFR Non-African American 156.8 (>60); Globulin 3.1 g/dL (2-4); Total Bilirubin 2.8 mg/dL (0.2-1.0); Total Protein 5.2 g/dL (6.4-8.9)
[2020-03-09 01:51] LABS: Potassium 3.8 mmol/L (3.5-5.0)
[2020-03-09] MEDS: metroNIDAZOLE IV 500 MG/100ML 500 MG/100 ML BAG IVPB SCH ×3 (02:01→17:38)
[2020-03-09] MEDS: LORazepam 2 mg VIAL 1 ml IV PUSH SCH (04:10)
[2020-03-09 04:49] LABS: Urine Appearance Clear; Urine Bilirubin Negative (Negative); Urine Blood Negative (Negative); Urine Color Yellow; Urine Glucose Negative (Negative); Urine Ketones Negative (Negative); Urine Nitrite Negative (Negative); Urine Protein Negative (Negative); Urine Specific Gravity 1.004 (1.010-1.030); Urine Urobilinogen Negative (Negative)
[2020-03-09 05:15] LABS: ABS Eosinophils 0.1 10^3/ul (0-0.6); ABS Lymphocytes 0.8 10^3/ul (1.0-4.8); ABS Monocytes 0.7 10^3/ul (0-0.8); Eosinophil % 1.8 %; Hematocrit 27 % (42-52); Hemoglobin 9.6 g/dL (14.0-18.0); Mean Corpuscular HGB Conc 36 g/dL (31-36); Mean Corpuscular Hemoglobin 37 pg (27-31); Mean Corpuscular Volume 102 fL (80-94); Mean Platelet Volume 8.3 fL (7.4-10.4); Nucleated Red Blood Cells % 0.1; Platelet Count 158 10^3/uL (150-450); Red Blood Count 2.62 10^6 /uL (4.18-5.48); Red Cell Distribution Width 17 % (10-15); White Blood Count 3.6 10^3/uL (3.5-10.8)
[2020-03-09 05:23] LABS: Albumin 2.1 g/dL (3.2-5.2); Calcium 7.8 mg/dL (8.6-10.3); Magnesium 1.1 mg/dL (1.9-2.7); Potassium 3.7 mmol/L (3.5-5.0); Total Bilirubin 2.8 mg/dL (0.2-1.0)
[2020-03-09 05:29] LABS: Albumin/Globulin Ratio 0.7 (1-3); EGFR African American 193.6 (>60); Globulin 3.2 g/dL (2-4); Phosphorus 2.9 mg/dL (2.5-5.0); Total Protein 5.3 g/dL (6.4-8.9)
[2020-03-09] MEDS ORDERED: Magnesium Sulfate 2 gm BAG 2 GM/50 ML BAG IVPB ONE (08:57)
[2020-03-09] MEDS ORDERED: Hyaluronidase HUMAN 15 UNIT in Sodium Chloride 0.9% 0.9 ML INTRADERM ONE (09:00)
[2020-03-09] MEDS: Ondansetron 4 mg VIAL 2 MG/ML 2 ml VIAL IV PRN (09:32)
[2020-03-09] MEDS: Thiamine 100 MG/ML 2 ml VIAL 100 MG in NS 0.9% 50 ML 50 ML IV SCH (10:43)
[2020-03-09] MEDS ORDERED: Buffered Lidocaine 1% SYRIN 1 ml INTRADERM ONE ×2 (14:56→14:59)
[2020-03-09] MEDS: HYDROmorphone 1 MG/1 ML SYRINGE IV SLOW PU PRN ×2 (15:54→20:24)
[2020-03-09] MEDS: Folic Acid 1 mg SYRINGE 0.2 ML SYRINGE IV SCH (17:38)
[2020-03-09] MEDS: TPN 24 HR with D10W 1000 ml BAG 1,000 ML, Amino Acid Infusion 10% 850 ML, Sterile Water... IV SCH (17:39)
[2020-03-10] MEDS: Cefepime 1 GM in Dextrose(*) 1 GM/50 ML BAG IV SCH ×2 (01:22→13:01)
[2020-03-10] MEDS: metroNIDAZOLE IV 500 MG/100ML 500 MG/100 ML BAG IVPB SCH ×3 (02:37→17:17)
[2020-03-10 04:05] LABS: Urine Appearance Clear; Urine Bilirubin Negative (Negative); Urine Blood Negative (Negative); Urine Color Yellow; Urine Glucose Negative (Negative); Urine Ketones Negative (Negative); Urine Nitrite Negative (Negative); Urine Protein Negative (Negative); Urine Urobilinogen Negative (Negative)
[2020-03-10] MEDS: HYDROmorphone 1 MG/1 ML SYRINGE IV SLOW PU PRN ×3 (04:13→22:49)
[2020-03-10 05:05] LABS: Folate 10.31 ng/mL (>3.99)
[2020-03-10] MEDS: Pantoprazole VIAL 40 MG VIAL IV SCH (09:05)
[2020-03-10] MEDS: Thiamine 100 MG/ML 2 ml VIAL 100 MG in NS 0.9% 50 ML 50 ML IV SCH (11:00)
[2020-03-10] MEDS: Folic Acid 1 mg SYRINGE 0.2 ML SYRINGE IV SCH (11:00)
[2020-03-10 14:19] LABS: Albumin 2.3 g/dL (3.2-5.2); Calcium 7.7 mg/dL (8.6-10.3); Magnesium 1.4 mg/dL (1.9-2.7); Potassium 3.8 mmol/L (3.5-5.0)
[2020-03-10 14:25] LABS: Albumin/Globulin Ratio 0.7 (1-3); BUN/Creatinine Ratio 16.4 (8-20); EGFR African American 145.5 (>60); EGFR Non-African American 120.2 (>60); Globulin 3.5 g/dL (2-4); Phosphorus 2.8 mg/dL (2.5-5.0); Total Protein 5.8 g/dL (6.4-8.9)
[2020-03-10] MEDS ORDERED: TPN 24 HR with Dextrose 50% Water 500 ML, Amino Acid Infusion 10% 850 ML, Sterile Water... CENTR SCH (17:00)
[2020-03-10] MEDS: TPN 24 HR with D10W 1000 ml BAG 1,000 ML, Amino Acid Infusion 10% 850 ML, Sterile Water... IV SCH (17:11)
[2020-03-10] MEDS: Ondansetron 4 mg VIAL 2 MG/ML 2 ml VIAL IV PRN (22:50)
[2020-03-11] MEDS: Cefepime 1 GM in Dextrose(*) 1 GM/50 ML BAG IV SCH ×2 (01:21→13:20)
[2020-03-11] MEDS: metroNIDAZOLE IV 500 MG/100ML 500 MG/100 ML BAG IVPB SCH ×3 (02:26→17:31)
[2020-03-11] MEDS: Scopolamine PATCH Remove NOTE PATCH OFF SCH (04:34)
[2020-03-11] MEDS: Ondansetron 4 mg VIAL 2 MG/ML 2 ml VIAL IV PRN ×3 (04:46→17:36)
[2020-03-11] MEDS: HYDROmorphone 1 MG/1 ML SYRINGE IV SLOW PU PRN ×5 (07:37→22:16)
[2020-03-11] MEDS: Pantoprazole VIAL 40 MG VIAL IV SCH ×3 (08:31→20:00)
[2020-03-11] MEDS: Folic Acid 1 mg SYRINGE 0.2 ML SYRINGE IV SCH (10:40)
[2020-03-11] MEDS: Thiamine 100 MG/ML 2 ml VIAL 100 MG in NS 0.9% 50 ML 50 ML IV SCH (10:42)
[2020-03-11] MEDS: diPHENhydraMINE IV 50 MG/ML 1 ml VIAL (BENADRYL) IV PRN ×2 (15:09→22:16)
[2020-03-11 16:44] LABS: C Reactive Protein 81.7 mg/L (<8.01)
[2020-03-11] MEDS: TPN 24 HR with D10W 1000 ml BAG 1,000 ML, Amino Acid Infusion 10% 850 ML, Sterile Water... IV SCH (17:28)
[2020-03-12] MEDS: Cefepime 1 GM in Dextrose(*) 1 GM/50 ML BAG IV SCH ×2 (00:56→16:45)
[2020-03-12] MEDS: metroNIDAZOLE IV 500 MG/100ML 500 MG/100 ML BAG IVPB SCH ×2 (01:37→10:24)
[2020-03-12] MEDS: HYDROmorphone 1 MG/1 ML SYRINGE IV SLOW PU PRN ×4 (01:53→22:30)
[2020-03-12 08:04] LABS: BUN/Creatinine Ratio 13.3 (8-20); Calcium 7.8 mg/dL (8.6-10.3); EGFR African American 182.4 (>60); EGFR Non-African American 150.8 (>60); Potassium 3.9 mmol/L (3.5-5.0)
[2020-03-12] MEDS: Folic Acid 1 mg SYRINGE 0.2 ML SYRINGE IV SCH (10:31)
[2020-03-12] MEDS: Pantoprazole VIAL 40 MG VIAL IV SCH ×2 (10:32→22:12)
[2020-03-12 11:13] LABS: Magnesium 1.6 mg/dL (1.9-2.7)
[2020-03-12] MEDS: Thiamine 100 MG/ML 2 ml VIAL 100 MG in NS 0.9% 50 ML 50 ML IV SCH (13:56)
[2020-03-12] MEDS: Ondansetron 4 mg VIAL 2 MG/ML 2 ml VIAL IV PRN ×3 (14:19→22:30)
[2020-03-12] MEDS: TPN 24 HR with D10W 1000 ml BAG 1,000 ML, Amino Acid Infusion 10% 850 ML, Sterile Water... IV SCH (18:16)
[2020-03-12] MEDS: Triamcinolone 0.025% OINT 15 GM TUBE TOPICAL PRN (22:16)
[2020-03-12] MEDS: diPHENhydraMINE IV 50 MG/ML 1 ml VIAL (BENADRYL) IV PRN (22:29)
[2020-03-13] MEDS: Cefepime 1 GM in Dextrose(*) 1 GM/50 ML BAG IV SCH ×2 (01:20→13:46)
[2020-03-13] MEDS: HYDROmorphone 1 MG/1 ML SYRINGE IV SLOW PU PRN ×7 (01:31→22:00)
[2020-03-13 06:32] LABS: Hematocrit 29 % (42-52); Mean Corpuscular HGB Conc 35 g/dL (31-36); Mean Corpuscular Hemoglobin 36 pg (27-31); Mean Corpuscular Volume 104 fL (80-94); Platelet Count 348 10^3/uL (150-450); Red Blood Count 2.75 10^6 /uL (4.18-5.48); Red Cell Distribution Width 17 % (10-15)
[2020-03-13 06:52] LABS: Albumin 2.9 g/dL (3.2-5.2); Albumin/Globulin Ratio 0.7 (1-3); BUN/Creatinine Ratio 14.1 (8-20); Calcium 8.6 mg/dL (8.6-10.3); EGFR African American 169.4 (>60); Globulin 4.3 g/dL (2-4); Magnesium 1.6 mg/dL (1.9-2.7); Potassium 3.9 mmol/L (3.5-5.0); Total Bilirubin 2.7 mg/dL (0.2-1.0); Total Protein 7.2 g/dL (6.4-8.9)
[2020-03-13] MEDS: diPHENhydraMINE IV 50 MG/ML 1 ml VIAL (BENADRYL) IV PRN (07:39)
[2020-03-13] MEDS: Ondansetron 4 mg VIAL 2 MG/ML 2 ml VIAL IV PRN ×4 (07:42→22:00)
[2020-03-13 07:52] LABS: ABS Basophils 0.1 10^3/ul (0-0.2); ABS Eosinophils 0.1 10^3/ul (0-0.6); ABS Lymphocytes 2.5 10^3/ul (1.0-4.8); ABS Monocytes 0.9 10^3/ul (0-0.8); Eosinophil % 0.8 %; Lymphocyte % 22.7 %; Nucleated Red Blood Cells % 0.1
[2020-03-13] MEDS: Pantoprazole VIAL 40 MG VIAL IV SCH ×2 (08:02→20:18)
[2020-03-13] MEDS: Folic Acid 1 mg SYRINGE 0.2 ML SYRINGE IV SCH (08:15)
[2020-03-13] MEDS ORDERED: Magnesium Sulfate 2 gm BAG 2 GM/50 ML BAG IVPB ONE (10:00)
[2020-03-13 10:12] LABS: C Reactive Protein 33.83 mg/L (<8.01)
[2020-03-13] MEDS: Thiamine 100 MG/ML 2 ml VIAL 100 MG in NS 0.9% 50 ML 50 ML IV SCH (11:17)
[2020-03-13] MEDS ORDERED: Midazolam 10 mg/10 ml VIAL 1 mg/ml 10 ml VIAL (10 mg) ONE (12:07)
[2020-03-13] MEDS ORDERED: fentaNYL 100 mcg/2 ml 50 MCG/ML VIAL ONE (12:07)
[2020-03-13] MEDS: Clotrimazole 1% CREAM 30 gm TOPICAL SCH ×2 (17:05→20:17)
[2020-03-13] MEDS: Sucralfate 1 gm SUSP 1 GM/10 ML UDC PO SCH (17:09)
[2020-03-13] MEDS: TPN 24 HR with D10W 1000 ml BAG 1,000 ML, Amino Acid Infusion 10% 850 ML, Sterile Water... IV SCH (17:12)
[2020-03-14] MEDS: Scopolamine PATCH Remove NOTE PATCH OFF SCH (03:58)
[2020-03-14] MEDS: HYDROmorphone 1 MG/1 ML SYRINGE IV SLOW PU PRN ×2 (03:59→09:31)
[2020-03-14] MEDS: Sucralfate 1 gm SUSP 1 GM/10 ML UDC PO SCH ×3 (07:38→17:31)
[2020-03-14] MEDS: Ondansetron 4 mg VIAL 2 MG/ML 2 ml VIAL IV PRN ×2 (08:00→18:23)
[2020-03-14] MEDS: Pantoprazole VIAL 40 MG VIAL IV SCH ×2 (08:00→20:47)
[2020-03-14] MEDS: Clotrimazole 1% CREAM 30 gm TOPICAL SCH ×2 (08:01→20:47)
[2020-03-14] MEDS: Folic Acid 1 mg SYRINGE 0.2 ML SYRINGE IV SCH (09:31)
[2020-03-14 10:53] LABS: % Iron Saturation 21 % (15-55); Iron 55 ug/dL (50-212); Total Iron Binding Capacity 265 mcg/dL (250-450); Transferrin 189 mg/dL (203-362)
[2020-03-14 11:13] LABS: Ferritin 165.5 ng/mL (24-336)
[2020-03-14] MEDS ORDERED: Morphine 2 MG/ML SYRINGE IV ONE ×3 (11:21→17:00)
[2020-03-14] MEDS: Thiamine 100 MG/ML 2 ml VIAL 100 MG in NS 0.9% 50 ML 50 ML IV SCH (11:56)
[2020-03-14] MEDS: Triamcinolone 0.025% OINT 15 GM TUBE TOPICAL PRN (12:04)
[2020-03-14] MEDS: diPHENhydraMINE IV 50 MG/ML 1 ml VIAL (BENADRYL) IV PRN (12:04)
[2020-03-14] MEDS ORDERED: HYDROmorphone 1 MG/1 ML SYRINGE IV SLOW PU ONE (12:30)
[2020-03-15 07:55] VITALS: BP 104/68
[2020-03-15] MEDS: Sucralfate 1 gm SUSP 1 GM/10 ML UDC PO SCH (08:34)
[2020-03-15] MEDS: Pantoprazole VIAL 40 MG VIAL IV SCH (08:34)
[2020-03-15] MEDS: Folic Acid 1 mg SYRINGE 0.2 ML SYRINGE IV SCH (08:35)
[2020-03-15] MEDS: Clotrimazole 1% CREAM 30 gm TOPICAL SCH (08:36)
== END 2020-03-15 11:05 | disposition home or self-care (01) | DRG 282 ==
LOC: ED 14:44 → ICU 17:56 → MED 03-10 10:23
PROVIDERS: ADMIT Internal Medicine; ATTEND Internal Medicine

== ENCOUNTER 2020-07-11 07:37 | Inpatient (IN) ==
[2020-07-11] MEDS ORDERED: NS 0.9% 1000 ml BAG 1,000 ML IV ONE (07:56)
[2020-07-11] MEDS ORDERED: Ondansetron 4 mg VIAL 2 MG/ML 2 ml VIAL IV ONE (07:56)
[2020-07-11 08:39] LABS: ABS Basophils 0.1 10^3/ul (0-0.2); ABS Eosinophils 0.1 10^3/ul (0-0.6); ABS Lymphocytes 1.7 10^3/ul (1.0-4.8); ABS Monocytes 0.4 10^3/ul (0-0.8); ABS Neutrophils 1.5 10^3/ul (1.5-7.7); Eosinophil % 2.6 %; Hematocrit 32 % (42-52); Hemoglobin 10.6 g/dL (14.0-18.0); Lymphocyte % 45.4 %; Mean Corpuscular HGB Conc 33 g/dL (31-36); Mean Corpuscular Hemoglobin 25 pg (27-31); Mean Corpuscular Volume 76 fL (80-94); Mean Platelet Volume 7.8 fL (7.4-10.4); Nucleated Red Blood Cells % 0.1; Platelet Count 184 10^3/uL (150-450); Red Blood Count 4.25 10^6 /uL (4.18-5.48); Red Cell Distribution Width 21 % (10-15); White Blood Count 3.7 10^3/uL (3.5-10.8)
[2020-07-11 08:42] LABS: INR 1.27 (0.82-1.09)
[2020-07-11] MEDS ORDERED: Morphine 4 MG/ML VIAL (1 ml) IV ONE (08:44)
[2020-07-11 08:52] LABS: Anion Gap 9 mmol/L (2-11); Blood Urea Nitrogen 4 mg/dL (6-24); CO2 Carbon Dioxide 28 mmol/L (22-32); Chloride 103 mmol/L (101-111); Glucose 83 mg/dL (70-100); Potassium 3.4 mmol/L (3.5-5.0); Sodium 140 mmol/L (135-145)
[2020-07-11 08:53] LABS: ALT 92 U/L (7-52); AST 370 U/L (13-39); Albumin 3.8 g/dL (3.2-5.2); Alkaline Phosphatase 140 U/L (34-104); Amylase 64 U/L (29-103); BUN/Creatinine Ratio 5.7 (8-20); C Reactive Protein < 1.00 mg/L (<8.01); Calcium 8.6 mg/dL (8.6-10.3); EGFR African American 151.9 (>60); EGFR Non-African American 125.5 (>60); Globulin 3.8 g/dL (2-4); Lipase 88 U/L (11.0-82.0); Magnesium 1.2 mg/dL (1.9-2.7); Total Protein 7.6 g/dL (6.4-8.9)
[2020-07-11] MEDS ORDERED: Magnesium Sulfate 2 gm BAG 2 GM/50 ML BAG IVPB ONE ×2 (09:00→11:38)
[2020-07-11] MEDS ORDERED: Iohexol 300 (CONTRAST) 10 ML SDV IV ONE (09:14)
[2020-07-11] MEDS ORDERED: Al Hydrox/Mg Hydrox/Simet LIQ 30 ML UDC PO ONE (09:51)
[2020-07-11] MEDS ORDERED: Pantoprazole VIAL 40 MG VIAL IV ONE (10:33)
[2020-07-11] MEDS ORDERED: Ondansetron ODT 4 mg TAB 4 MG TAB PO PRN (11:17)
[2020-07-11] MEDS ORDERED: Thiamine 100 MG/ML 2 ml VIAL (200 mg) IM ONE (11:23)
[2020-07-11] MEDS ORDERED: Lactated Ringers 1000 ml BAG 1,000 ML IV ONE (11:37)
[2020-07-11] MEDS ORDERED: KCL 20 MEQ/100 ML IVPREMIX 20 MEQ/100 ML BAG IV ONE (11:39)
[2020-07-11 11:53] LABS: Activated Partial Thrombo Time 32.4 seconds (26.0-38.0)
[2020-07-11 12:15] LABS: Alcohol, S 300 mg/dL (<10)
[2020-07-11 12:45] LABS: Urine Appearance Clear; Urine Bilirubin Negative (Negative); Urine Blood Negative (Negative); Urine Color Yellow; Urine Glucose Negative (Negative); Urine Ketones Negative (Negative); Urine Nitrite Negative (Negative); Urine Protein Negative (Negative); Urine Specific Gravity 1.023 (1.010-1.030); Urine Urobilinogen Negative (Negative)
[2020-07-11] MEDS: Sucralfate 1 gm SUSP 1 GM/10 ML UDC PO SCH ×3 (13:54→20:52)
[2020-07-11] MEDS: Multivitamins/Minerals TAB PO SCH (13:59)
[2020-07-11] MEDS: Lactated Ringers 1000 ml BAG 1,000 ML IV SCH (14:00)
[2020-07-11] MEDS: HYDROmorphone 0.5 MG/0.5 ML SYRINGE IV SLOW PU PRN ×2 (15:29→20:52)
[2020-07-11] MEDS: Ondansetron ODT 4 mg TAB 4 MG TAB PO PRN ×2 (16:21→20:51)
[2020-07-12] MEDS: Ondansetron ODT 4 mg TAB 4 MG TAB PO PRN ×4 (01:06→16:18)
[2020-07-12] MEDS: HYDROmorphone 0.5 MG/0.5 ML SYRINGE IV SLOW PU PRN ×3 (01:06→09:00)
[2020-07-12] MEDS: Lactated Ringers 1000 ml BAG 1,000 ML IV SCH ×2 (01:09→13:58)
[2020-07-12 06:37] LABS: ABS Eosinophils 0.1 10^3/ul (0-0.6); ABS Lymphocytes 1.6 10^3/ul (1.0-4.8); ABS Monocytes 0.4 10^3/ul (0-0.8); ABS Neutrophils 3.4 10^3/ul (1.5-7.7); Eosinophil % 1.3 %; Hematocrit 32 % (42-52); Hemoglobin 10.1 g/dL (14.0-18.0); Lymphocyte % 28.8 %; Mean Corpuscular HGB Conc 32 g/dL (31-36); Mean Corpuscular Hemoglobin 25 pg (27-31); Mean Corpuscular Volume 78 fL (80-94); Mean Platelet Volume 8.5 fL (7.4-10.4); Nucleated Red Blood Cells % 0.1; Platelet Count 146 10^3/uL (150-450); Red Blood Count 4.07 10^6 /uL (4.18-5.48); Red Cell Distribution Width 21 % (10-15); White Blood Count 5.5 10^3/uL (3.5-10.8)
[2020-07-12 07:03] LABS: Albumin 3.5 g/dL (3.2-5.2); BUN/Creatinine Ratio 4.8 (8-20); Calcium 8.2 mg/dL (8.6-10.3); EGFR African American 174.7 (>60); EGFR Non-African American 144.4 (>60); Globulin 3.4 g/dL (2-4); Magnesium 1.3 mg/dL (1.9-2.7); Potassium 3.8 mmol/L (3.5-5.0); Total Bilirubin 1.9 mg/dL (0.2-1.0); Total Protein 6.9 g/dL (6.4-8.9)
[2020-07-12] MEDS: Sucralfate 1 gm SUSP 1 GM/10 ML UDC PO SCH ×4 (07:44→21:01)
[2020-07-12] MEDS: Multivitamins/Minerals TAB PO SCH (07:46)
[2020-07-12] MEDS: Potassium Chlor 10 meq TAB PO SCH (07:46)
[2020-07-12] MEDS ORDERED: Magnesium Sulfate IV 3 GM in NS 0.9% 100 ml BAG 100 ML IVPB ONE (08:30)
[2020-07-12 08:46] LABS: Indirect Bilirubin 1.1 mg/dL (0.3-1.0)
[2020-07-12 11:04] LABS: INR 1.29 (0.82-1.09)
[2020-07-12 12:07] LABS: Hepatitis C Antibody Negative (Negative)
[2020-07-12] MEDS ORDERED: Calcium Carb (TUMS) 500 mg CHEW TAB PO PRN (13:35)
[2020-07-12 19:13] LABS: Total Bilirubin 1.9 mg/dL (0.2-1.0)
[2020-07-13] MEDS: Sucralfate 1 gm SUSP 1 GM/10 ML UDC PO SCH ×5 (08:16→20:05)
[2020-07-13 08:50] LABS: Total Bilirubin 1.5 mg/dL (0.2-1.0)
[2020-07-13 09:03] LABS: Albumin 3.5 g/dL (3.2-5.2); Calcium 8.7 mg/dL (8.6-10.3); Potassium 3.8 mmol/L (3.5-5.0); Total Bilirubin 1.5 mg/dL (0.2-1.0)
[2020-07-13 09:09] LABS: Albumin/Globulin Ratio 1.1 (1-3); BUN/Creatinine Ratio 6.7 (8-20); EGFR African American 140.3 (>60); EGFR Non-African American 115.9 (>60); Globulin 3.2 g/dL (2-4); Total Protein 6.7 g/dL (6.4-8.9)
[2020-07-13] MEDS: Multivitamins/Minerals TAB PO SCH (09:26)
[2020-07-13] MEDS: Potassium Chlor 10 meq TAB PO SCH (09:27)
[2020-07-13] MEDS ORDERED: HYDROmorphone 0.5 MG/0.5 ML SYRINGE IV PRN (15:29)
[2020-07-14 07:01] LABS: ABS Eosinophils 0.1 10^3/ul (0-0.6); ABS Lymphocytes 1.7 10^3/ul (1.0-4.8); ABS Monocytes 0.6 10^3/ul (0-0.8); ABS Neutrophils 4.9 10^3/ul (1.5-7.7); Eosinophil % 1.9 %; Hematocrit 32 % (42-52); Hemoglobin 10.4 g/dL (14.0-18.0); Lymphocyte % 22.9 %; Mean Corpuscular HGB Conc 32 g/dL (31-36); Mean Corpuscular Hemoglobin 25 pg (27-31); Mean Corpuscular Volume 78 fL (80-94); Mean Platelet Volume 8.8 fL (7.4-10.4); Platelet Count 135 10^3/uL (150-450); Red Blood Count 4.13 10^6 /uL (4.18-5.48); Red Cell Distribution Width 22 % (10-15); White Blood Count 7.4 10^3/uL (3.5-10.8)
[2020-07-14 07:22] LABS: Albumin 3.8 g/dL (3.2-5.2); BUN/Creatinine Ratio 11.1 (8-20); Calcium 9.2 mg/dL (8.6-10.3); EGFR African American 147.1 (>60); EGFR Non-African American 121.5 (>60); Globulin 3.9 g/dL (2-4); Potassium 3.6 mmol/L (3.5-5.0); Total Bilirubin 0.9 mg/dL (0.2-1.0); Total Protein 7.7 g/dL (6.4-8.9)
[2020-07-14 07:32] LABS: Total Bilirubin 0.9 mg/dL (0.2-1.0)
[2020-07-14] MEDS: Sucralfate 1 gm SUSP 1 GM/10 ML UDC PO SCH ×4 (07:37→21:27)
[2020-07-14 07:43] LABS: INR 1.36 (0.82-1.09)
[2020-07-14] MEDS: Multivitamins/Minerals TAB PO SCH (09:50)
[2020-07-14] MEDS: Potassium Chlor 10 meq TAB PO SCH (09:54)
[2020-07-14] MEDS: NS 0.9% 1000 ml BAG 1,000 ML IV SCH (18:20)
[2020-07-15] MEDS: NS 0.9% 1000 ml BAG 1,000 ML IV SCH ×2 (04:29→13:12)
[2020-07-15] MEDS: Sucralfate 1 gm SUSP 1 GM/10 ML UDC PO SCH ×4 (07:49→20:21)
[2020-07-15] MEDS: Potassium Chlor 10 meq TAB PO SCH (09:51)
[2020-07-15] MEDS: Multivitamins/Minerals TAB PO SCH (09:51)
[2020-07-15] MEDS ORDERED: NS 0.9% 1000 ml BAG 1,000 ML IV ONE (10:48)
[2020-07-15 11:11] LABS: INR 1.25 (0.82-1.09)
[2020-07-15 11:21] LABS: Albumin 3.4 g/dL (3.2-5.2); BUN/Creatinine Ratio 12.3 (8-20); Calcium 8.7 mg/dL (8.6-10.3); EGFR African American 165.5 (>60); EGFR Non-African American 136.8 (>60); Globulin 3.5 g/dL (2-4); Total Bilirubin 0.5 mg/dL (0.2-1.0); Total Protein 6.9 g/dL (6.4-8.9)
[2020-07-15] MEDS ORDERED: Senna TAB 8.6 mg TAB PO PRN (14:43)
[2020-07-15 15:06] LABS: Magnesium 1.3 mg/dL (1.9-2.7)
[2020-07-15] MEDS ORDERED: Magnesium Sulfate IV 3 GM in NS 0.9% 100 ml BAG 100 ML IVPB ONE (16:59)
[2020-07-16] MEDS: Ondansetron ODT 4 mg TAB 4 MG TAB PO PRN (01:39)
[2020-07-16] MEDS: NS 0.9% 1000 ml BAG 1,000 ML IV SCH ×2 (01:55→13:36)
[2020-07-16 07:16] LABS: Hematocrit 31 % (42-52); Hemoglobin 10.1 g/dL (14.0-18.0); Mean Corpuscular HGB Conc 32 g/dL (31-36); Mean Corpuscular Hemoglobin 25 pg (27-31); Mean Corpuscular Volume 78 fL (80-94); Mean Platelet Volume 8.4 fL (7.4-10.4); Platelet Count 163 10^3/uL (150-450); Red Blood Count 3.98 10^6 /uL (4.18-5.48); Red Cell Distribution Width 21 % (10-15); White Blood Count 7.4 10^3/uL (3.5-10.8)
[2020-07-16 07:29] LABS: INR 1.22 (0.82-1.09)
[2020-07-16 07:30] LABS: Albumin 3.5 g/dL (3.2-5.2); Albumin/Globulin Ratio 0.9 (1-3); BUN/Creatinine Ratio 7.6 (8-20); Calcium 8.5 mg/dL (8.6-10.3); EGFR African American 162.6 (>60); EGFR Non-African American 134.4 (>60); Globulin 3.7 g/dL (2-4); Magnesium 1.4 mg/dL (1.9-2.7); Potassium 3.7 mmol/L (3.5-5.0); Total Bilirubin 0.8 mg/dL (0.2-1.0); Total Protein 7.2 g/dL (6.4-8.9)
[2020-07-16 07:49] LABS: ABS Eosinophils 0.1 10^3/ul (0-0.6); ABS Lymphocytes 0.9 10^3/ul (1.0-4.8); ABS Monocytes 0.7 10^3/ul (0-0.8); ABS Neutrophils 5.7 10^3/ul (1.5-7.7); Lymphocyte % 12.6 %; Nucleated Red Blood Cells % 0.1
[2020-07-16] MEDS ORDERED: Magnesium Sulfate IV 3 GM in NS 0.9% 100 ml BAG 100 ML IVPB ONE (08:30)
[2020-07-16] MEDS: Sucralfate 1 gm SUSP 1 GM/10 ML UDC PO SCH ×4 (09:26→21:23)
[2020-07-16] MEDS: Multivitamins/Minerals TAB PO SCH (09:27)
[2020-07-16] MEDS: Potassium Chlor 10 meq TAB PO SCH (09:29)
[2020-07-16] MEDS: Morphine 2 MG/ML SYRINGE IV PRN ×3 (13:33→23:09)
[2020-07-16] MEDS: Pantoprazole VIAL 40 MG VIAL IV SCH (13:36)
[2020-07-16] MEDS ORDERED: Lorazepam PYXIS KEY PRN (13:37)
[2020-07-16] MEDS ORDERED: LORazepam 2 mg VIAL 1 ml IV PUSH SCH (14:00)
[2020-07-16] MEDS ORDERED: Iohexol 300 (CONTRAST) 10 ML SDV IV ONE (16:50)
[2020-07-17] MEDS: NS 0.9% 1000 ml BAG 1,000 ML IV SCH ×3 (01:52→19:33)
[2020-07-17 06:41] LABS: ABS Eosinophils 0.1 10^3/ul (0-0.6); ABS Lymphocytes 1.3 10^3/ul (1.0-4.8); ABS Monocytes 0.9 10^3/ul (0-0.8); ABS Neutrophils 4.9 10^3/ul (1.5-7.7); Eosinophil % 1.1 %; Hematocrit 32 % (42-52); Hemoglobin 10.4 g/dL (14.0-18.0); Lymphocyte % 17.8 %; Mean Corpuscular HGB Conc 33 g/dL (31-36); Mean Corpuscular Hemoglobin 26 pg (27-31); Mean Corpuscular Volume 79 fL (80-94); Mean Platelet Volume 8.6 fL (7.4-10.4); Platelet Count 190 10^3/uL (150-450); Red Blood Count 4.08 10^6 /uL (4.18-5.48); Red Cell Distribution Width 22 % (10-15); White Blood Count 7.2 10^3/uL (3.5-10.8)
[2020-07-17 06:48] LABS: Amylase 137 U/L (29-103); Anion Gap 6 mmol/L (2-11); BUN/Creatinine Ratio 8.7 (8-20); Blood Urea Nitrogen 6 mg/dL (6-24); CO2 Carbon Dioxide 29 mmol/L (22-32); Calcium 9.1 mg/dL (8.6-10.3); Chloride 100 mmol/L (101-111); EGFR African American 154.5 (>60); EGFR Non-African American 127.6 (>60); Glucose 93 mg/dL (70-100); Potassium 4.5 mmol/L (3.5-5.0); Sodium 135 mmol/L (135-145)
[2020-07-17 07:57] LABS: Lipase 502 U/L (11.0-82.0)
[2020-07-17] MEDS: Morphine 2 MG/ML SYRINGE IV PRN ×3 (08:37→22:02)
[2020-07-17] MEDS: Potassium Chlor 10 meq TAB PO SCH (08:37)
[2020-07-17] MEDS: Multivitamins/Minerals TAB PO SCH (08:37)
[2020-07-17] MEDS: Sucralfate 1 gm SUSP 1 GM/10 ML UDC PO SCH ×4 (08:37→23:34)
[2020-07-17 09:46] LABS: Magnesium 1.5 mg/dL (1.9-2.7); Triglycerides 97 mg/dL
[2020-07-17] MEDS ORDERED: Magnesium Sulfate IV 3 GM in NS 0.9% 100 ml BAG 100 ML IVPB ONE (12:32)
[2020-07-17] MEDS: Pantoprazole VIAL 40 MG VIAL IV SCH ×2 (13:40→22:03)
[2020-07-17 14:09] LABS: % Iron Saturation 8 % (15-55); Iron 35 ug/dL (50-212); Total Iron Binding Capacity 465 mcg/dL (250-450); Transferrin 332 mg/dL (203-362); Unsaturated Iron Binding < 450 ug/dL
[2020-07-17 14:25] LABS: Ferritin 52.9 ng/mL (24-336)
[2020-07-18] MEDS: Morphine 2 MG/ML SYRINGE IV PRN ×4 (02:53→23:48)
[2020-07-18] MEDS: NS 0.9% 1000 ml BAG 1,000 ML IV SCH ×3 (02:53→22:42)
[2020-07-18 06:30] LABS: ABS Eosinophils 0.1 10^3/ul (0-0.6); ABS Lymphocytes 1.4 10^3/ul (1.0-4.8); ABS Monocytes 0.7 10^3/ul (0-0.8); ABS Neutrophils 2.4 10^3/ul (1.5-7.7); Hematocrit 30 % (42-52); Hemoglobin 9.6 g/dL (14.0-18.0); Lymphocyte % 29.8 %; Mean Corpuscular HGB Conc 33 g/dL (31-36); Mean Corpuscular Hemoglobin 26 pg (27-31); Mean Corpuscular Volume 79 fL (80-94); Mean Platelet Volume 8.6 fL (7.4-10.4); Platelet Count 187 10^3/uL (150-450); Red Blood Count 3.74 10^6 /uL (4.18-5.48); Red Cell Distribution Width 22 % (10-15); White Blood Count 4.6 10^3/uL (3.5-10.8)
[2020-07-18 06:42] LABS: BUN/Creatinine Ratio 6.6 (8-20); Calcium 8.3 mg/dL (8.6-10.3); EGFR African American 178.1 (>60); EGFR Non-African American 147.2 (>60); Magnesium 1.5 mg/dL (1.9-2.7); Potassium 3.9 mmol/L (3.5-5.0)
[2020-07-18] MEDS: Sucralfate 1 gm SUSP 1 GM/10 ML UDC PO SCH ×4 (07:40→20:36)
[2020-07-18] MEDS: Multivitamins/Minerals TAB PO SCH (07:40)
[2020-07-18] MEDS ORDERED: Magnesium Sulf 4 GM/100 ML IV 4,000 MG/100 ML BAG IVPB ONE (08:38)
[2020-07-18] MEDS: Pantoprazole VIAL 40 MG VIAL IV SCH ×2 (09:22→20:36)
[2020-07-19 06:37] LABS: ABS Eosinophils 0.1 10^3/ul (0-0.6); ABS Lymphocytes 1.5 10^3/ul (1.0-4.8); ABS Monocytes 0.8 10^3/ul (0-0.8); ABS Neutrophils 2.4 10^3/ul (1.5-7.7); Eosinophil % 2.5 %; Hematocrit 30 % (42-52); Hemoglobin 9.7 g/dL (14.0-18.0); Lymphocyte % 30.8 %; Mean Corpuscular HGB Conc 32 g/dL (31-36); Mean Corpuscular Hemoglobin 26 pg (27-31); Mean Corpuscular Volume 79 fL (80-94); Mean Platelet Volume 8.4 fL (7.4-10.4); Nucleated Red Blood Cells % 0.1; Platelet Count 242 10^3/uL (150-450); Red Blood Count 3.77 10^6 /uL (4.18-5.48); Red Cell Distribution Width 23 % (10-15); White Blood Count 4.7 10^3/uL (3.5-10.8)
[2020-07-19] MEDS: NS 0.9% 1000 ml BAG 1,000 ML IV SCH ×3 (06:40→21:24)
[2020-07-19 06:50] LABS: BUN/Creatinine Ratio 3.3 (8-20); Calcium 8.5 mg/dL (8.6-10.3); EGFR African American 178.1 (>60); EGFR Non-African American 147.2 (>60); Potassium 3.8 mmol/L (3.5-5.0)
[2020-07-19] MEDS: Morphine 2 MG/ML SYRINGE IV PRN ×3 (07:47→22:48)
[2020-07-19] MEDS: Pantoprazole VIAL 40 MG VIAL IV SCH ×2 (07:49→21:25)
[2020-07-19] MEDS: Sucralfate 1 gm SUSP 1 GM/10 ML UDC PO SCH ×4 (08:17→21:25)
[2020-07-19] MEDS: Multivitamins/Minerals TAB PO SCH (08:18)
[2020-07-19] MEDS ORDERED: Magnesium Sulf 4 GM/100 ML IV 4,000 MG/100 ML BAG IVPB ONE (14:30)
[2020-07-20 06:28] LABS: Albumin 3.2 g/dL (3.2-5.2); Albumin/Globulin Ratio 0.9 (1-3); BUN/Creatinine Ratio 6.8 (8-20); Calcium 8.7 mg/dL (8.6-10.3); EGFR African American 144.7 (>60); EGFR Non-African American 119.6 (>60); Globulin 3.6 g/dL (2-4); Magnesium 1.6 mg/dL (1.9-2.7); Potassium 3.9 mmol/L (3.5-5.0); Total Bilirubin 0.4 mg/dL (0.2-1.0); Total Protein 6.8 g/dL (6.4-8.9)
[2020-07-20] MEDS: NS 0.9% 1000 ml BAG 1,000 ML IV SCH (06:33)
[2020-07-20 06:50] LABS: Hematocrit 30 % (42-52); Hemoglobin 9.6 g/dL (14.0-18.0); Mean Corpuscular HGB Conc 32 g/dL (31-36); Mean Corpuscular Hemoglobin 26 pg (27-31); Mean Corpuscular Volume 79 fL (80-94); Mean Platelet Volume 8.7 fL (7.4-10.4); Platelet Count 287 10^3/uL (150-450); Red Blood Count 3.76 10^6 /uL (4.18-5.48); Red Cell Distribution Width 23 % (10-15); White Blood Count 3.8 10^3/uL (3.5-10.8)
[2020-07-20] MEDS ORDERED: Magnesium Sulfate 2 gm BAG 2 GM/50 ML BAG IVPB ONE (07:23)
[2020-07-20] MEDS ORDERED: Morphine 2 MG/ML SYRINGE IV PRN (07:25)
[2020-07-20] MEDS: Sucralfate 1 gm SUSP 1 GM/10 ML UDC PO SCH ×3 (07:44→16:25)
[2020-07-20 08:49] LABS: ABS Basophils 0.1 10^3/ul (0-0.2); ABS Eosinophils 0.1 10^3/ul (0-0.6); ABS Lymphocytes 1.5 10^3/ul (1.0-4.8); ABS Monocytes 0.7 10^3/ul (0-0.8); ABS Neutrophils 1.5 10^3/ul (1.5-7.7); Eosinophil % 3.2 %; Lymphocyte % 38.2 %
[2020-07-20 10:01] VITALS: BP 103/72
[2020-07-20] MEDS: Pantoprazole VIAL 40 MG VIAL IV SCH (10:46)
[2020-07-20] MEDS: Multivitamins/Minerals TAB PO SCH (10:47)
== END 2020-07-20 17:45 | disposition home or self-care (01) | DRG 282 ==
LOC: ED 07:37 → MED 11:10 → SSU 07-18 13:35 → MED 07-19 12:51
PROVIDERS: ADMIT Student in an Organized Health Care Education/Training Program; ATTEND Internal Medicine

== ENCOUNTER 2020-09-27 23:48 | Inpatient (IN) ==
[2020-09-28] MEDS ORDERED: NS 0.9% 1000 ml BAG 2,000 ML IV ONE ×2 (00:02→02:25)
[2020-09-28] MEDS ORDERED: Metoclopramide 5 MG/ML VIAL (10 mg) IV ONE (00:04)
[2020-09-28] MEDS ORDERED: diPHENhydraMINE IV 50 MG/ML 1 ml VIAL (BENADRYL) IV ONE (00:04)
[2020-09-28] MEDS ORDERED: LORazepam 2 mg VIAL 1 ml IV PUSH ONE (00:29)
[2020-09-28] MEDS ORDERED: Lorazepam PYXIS KEY PRN (00:29)
[2020-09-28] MEDS ORDERED: Morphine 4 MG/ML VIAL (1 ml) IV ONE (00:42)
[2020-09-28] MEDS ORDERED: Al Hydrox/Mg Hydrox/Simet LIQ 30 ML UDC PO ONE (00:50)
[2020-09-28 00:55] LABS: ABS Basophils 0.1 10^3/ul (0-0.2); ABS Lymphocytes 2.2 10^3/ul (1.0-4.8); ABS Monocytes 1.1 10^3/ul (0-0.8); ABS Neutrophils 8.1 10^3/ul (1.5-7.7); Hematocrit 40 % (42-52); Hemoglobin 13.3 g/dL (14.0-18.0); Lymphocyte % 19.6 %; Mean Corpuscular HGB Conc 33 g/dL (31-36); Mean Corpuscular Hemoglobin 26 pg (27-31); Mean Corpuscular Volume 77 fL (80-94); Mean Platelet Volume 8.4 fL (7.4-10.4); Platelet Count 226 10^3/uL (150-450); Red Blood Count 5.17 10^6 /uL (4.18-5.48); Red Cell Distribution Width 21 % (10-15); White Blood Count 11.4 10^3/uL (3.5-10.8)
[2020-09-28 00:57] LABS: INR 1.27 (0.82-1.09)
[2020-09-28 01:07] LABS: Albumin 4.7 g/dL (3.2-5.2); BUN/Creatinine Ratio 6.7 (8-20); C Reactive Protein 1.43 mg/L (<8.01); Calcium 9.4 mg/dL (8.6-10.3); EGFR African American 71.8 (>60); EGFR Non-African American 59.3 (>60); Globulin 4.5 g/dL (2-4); Magnesium 1.2 mg/dL (1.9-2.7); Total Bilirubin 1.4 mg/dL (0.2-1.0); Total Protein 9.2 g/dL (6.4-8.9)
[2020-09-28 01:08] LABS: Potassium 2.7 mmol/L (3.5-5.0)
[2020-09-28] MEDS ORDERED: Magnesium Sulfate 2 gm BAG 2 GM/50 ML BAG IVPB ONE ×2 (01:10→02:25)
[2020-09-28] MEDS: KCL 20 MEQ/100 ML IVPREMIX 20 MEQ/100 ML BAG IV SCH ×2 (01:48→03:54)
[2020-09-28] MEDS ORDERED: Potassium Chlor 20 meq TAB.ER PO ONE (01:54)
[2020-09-28] MEDS ORDERED: Potassium Chloride LIQUID 20 MEQ/15 ML LIQUID PO ONE (02:12)
[2020-09-28] MEDS ORDERED: NS 0.9% 1000 ml BAG 1,000 ML IV SCH (02:30)
[2020-09-28] MEDS ORDERED: Cefepime 2 GM in Dextrose 2 GM/50 ML BAG IV ONE (02:46)
[2020-09-28] MEDS ORDERED: Iodixanol (CONTRAST) 320 MG/ML 100 ML SDV IV ONE (02:53)
[2020-09-28] MEDS ORDERED: LORazepam 2 mg VIAL 1 ml IV SCH (03:00)
[2020-09-28] MEDS ORDERED: Thiamine 100 MG/ML 2 ml VIAL 100 MG, Folic Acid 1 MG, Multiple Vitamin IV ADULT 10 ML i... IV ONE (03:00)
[2020-09-28] MEDS: Morphine 2 MG/ML SYRINGE IV PRN ×3 (03:37→17:04)
[2020-09-28 04:14] LABS: Urine Appearance Cloudy; Urine Bilirubin Negative (Negative); Urine Blood Negative (Negative); Urine Color Amber; Urine Glucose Negative (Negative); Urine Ketones 2+ (Negative); Urine Nitrite Negative (Negative); Urine Protein 2+(100 mg/dL) (Negative); Urine Specific Gravity 1.018 (1.010-1.030); Urine Urobilinogen Positive (Negative)
[2020-09-28] MEDS: Ondansetron 4 mg VIAL 2 MG/ML 2 ml VIAL IV PRN ×3 (04:19→19:56)
[2020-09-28 04:22] LABS: Urine Creatinine Concentration 243.4 mg/dL
[2020-09-28 04:25] LABS: Urine Bacteria Absent (Absent); Urine Red Blood Cell Absent (Absent); Urine White Blood Cell Trace(0-5/hpf) (Absent)
[2020-09-28] MEDS: Prochlorperazine 5 mg/ml 2 ml VIAL (10 mg) IV PRN ×3 (06:14→22:54)
[2020-09-28] MEDS: LORazepam 2 mg VIAL 1 ml IV PUSH SCH ×2 (06:15→22:56)
[2020-09-28] MEDS: KCL 10 MEQ/50 ML IVPREMIX 10 MEQ/50 ML BAG IV SCH ×4 (06:31→12:01)
[2020-09-28 07:02] LABS: ABS Basophils 0.1 10^3/ul (0-0.2); ABS Lymphocytes 1.4 10^3/ul (1.0-4.8); ABS Monocytes 0.6 10^3/ul (0-0.8); ABS Neutrophils 4.7 10^3/ul (1.5-7.7); Hematocrit 30 % (42-52); Hemoglobin 9.7 g/dL (14.0-18.0); Lymphocyte % 20.8 %; Mean Corpuscular HGB Conc 33 g/dL (31-36); Mean Corpuscular Hemoglobin 26 pg (27-31); Mean Corpuscular Volume 79 fL (80-94); Mean Platelet Volume 8.3 fL (7.4-10.4); Platelet Count 134 10^3/uL (150-450); Red Blood Count 3.78 10^6 /uL (4.18-5.48); Red Cell Distribution Width 21 % (10-15); White Blood Count 6.7 10^3/uL (3.5-10.8)
[2020-09-28 07:03] LABS: INR 1.34 (0.82-1.09)
[2020-09-28 07:16] LABS: Albumin 3.3 g/dL (3.2-5.2); BUN/Creatinine Ratio 9.2 (8-20); Calcium 6.7 mg/dL (8.6-10.3); EGFR African American 118.2 (>60); EGFR Non-African American 97.7 (>60); Globulin 3.2 g/dL (2-4); Indirect Bilirubin 0.8 mg/dL (0.3-1.0); Magnesium 2.2 mg/dL (1.9-2.7); Potassium 3.5 mmol/L (3.5-5.0); Total Bilirubin 1.6 mg/dL (0.2-1.0); Total Protein 6.5 g/dL (6.4-8.9)
[2020-09-28] MEDS: Sucralfate 1 gm SUSP 1 GM/10 ML UDC PO SCH ×4 (08:40→20:11)
[2020-09-28] MEDS: Multivitamins/Minerals TAB PO SCH (08:40)
[2020-09-28] MEDS: NS 0.9% 1000 ml BAG 1,000 ML IV SCH ×3 (13:00→23:08)
[2020-09-28 15:10] LABS: Hematocrit 31 % (42-52)
[2020-09-28] MEDS ORDERED: Pantoprazole VIAL 40 MG VIAL IV SCH (21:00)
[2020-09-28 22:39] LABS: Hematocrit 28 % (42-52)
[2020-09-29] MEDS ORDERED: Prochlorperazine 5 mg/ml 2 ml VIAL (10 mg) IV ONE (00:46)
[2020-09-29] MEDS ORDERED: NS 0.9% 1000 ml BAG 1,000 ML IV ONE (01:52)
[2020-09-29] MEDS ORDERED: Octreotide Acetate 100 mcg/ml 50 MCG in NS 0.9% 50 ML 50 ML IV ONE (02:01)
[2020-09-29] MEDS: Pantoprazole 80 mg in NS BAG 80 MG/250 ML BAG IV SCH ×3 (02:15→22:23)
[2020-09-29 02:21] LABS: Hematocrit 25 % (42-52); Hemoglobin 8.1 g/dL (14.0-18.0)
[2020-09-29] MEDS: LORazepam 2 mg VIAL 1 ml IV PUSH SCH ×2 (02:43→03:46)
[2020-09-29] MEDS: Octreotide Acetate 500 MCG in NS 0.9% 100 ml BAG 100 ML IV SCH ×3 (03:22→18:11)
[2020-09-29] MEDS: Ondansetron 4 mg VIAL 2 MG/ML 2 ml VIAL IV PRN (03:27)
[2020-09-29] MEDS ORDERED: Ziprasidone IM 20 mg VIAL 1 ml VIAL IM ONE (03:49)
[2020-09-29] MEDS ORDERED: Ziprasidone IM 20 mg VIAL 1 ml VIAL ONE (03:51)
[2020-09-29] MEDS ORDERED: Dexmedetomidine 1,000 MCG in NS 0.9% 250 ml 240 ML IV SCH (04:00)
[2020-09-29] MEDS ORDERED: Rocuronium 50 mg VIAL 10 mg/ml 5 ml VIAL (50 mg) ONE (04:33)
[2020-09-29] MEDS ORDERED: Succinylcholine 200 mg VIAL 20 mg/ml 10 ml VIAL (200 mg) ONE ×2 (04:33→04:41)
[2020-09-29] MEDS ORDERED: Propofol 10 mg/ml 100 ML BTL 100 ML ONE (04:35)
[2020-09-29] MEDS ORDERED: Etomidate 40 mg/20 ml (2 MG/ML) 20 ml VIAL (40 mg) ONE (04:41)
[2020-09-29] MEDS ORDERED: Midazolam 5 mg/5 ml VIAL 1 mg/ml 5 ml VIAL (5 mg) IV SLOW PU ONE (04:50)
[2020-09-29] MEDS ORDERED: Cefepime 2 GM in Dextrose 2 GM/50 ML BAG IV SCH (05:00)
[2020-09-29] MEDS ORDERED: Propofol 10 mg/ml 100 ML BTL 100 ML IV SCH (05:00)
[2020-09-29 05:29] LABS: ABS Lymphocytes 0.7 10^3/ul (1.0-4.8); ABS Monocytes 0.3 10^3/ul (0-0.8); ABS Neutrophils 4.6 10^3/ul (1.5-7.7); Eosinophil % 0.5 %; Hematocrit 23 % (42-52); Hemoglobin 7.7 g/dL (14.0-18.0); Lymphocyte % 12.6 %; Mean Corpuscular HGB Conc 33 g/dL (31-36); Mean Corpuscular Hemoglobin 26 pg (27-31); Mean Corpuscular Volume 80 fL (80-94); Mean Platelet Volume 8.8 fL (7.4-10.4); Platelet Count 111 10^3/uL (150-450); Red Blood Count 2.93 10^6 /uL (4.18-5.48); Red Cell Distribution Width 21 % (10-15); White Blood Count 5.7 10^3/uL (3.5-10.8)
[2020-09-29 05:50] LABS: BUN/Creatinine Ratio 18.2 (8-20); EGFR African American 162.6 (>60); EGFR Non-African American 134.4 (>60); Magnesium 1.2 mg/dL (1.9-2.7); Potassium 3.8 mmol/L (3.5-5.0)
[2020-09-29] MEDS ORDERED: Midazolam 50 MG VIAL IV DRIP 50 ML IV SCH (06:00)
[2020-09-29 06:08] LABS: Calcium 6.2 mg/dL (8.6-10.3)
[2020-09-29] MEDS: Midazolam 50 MG VIAL IV DRIP 50 ML IV SCH ×2 (06:09→19:17)
[2020-09-29] MEDS ORDERED: Magnesium Sulf 4 GM/100 ML IV 4,000 MG/100 ML BAG IVPB ONE (06:09)
[2020-09-29] MEDS: Chlorhexidine MOUTHWASH 0.12% 15 ML UDC TOPICAL SCH ×5 (06:15→20:46)
[2020-09-29] MEDS: Propofol 10 mg/ml 100 ML BTL 100 ML IV SCH ×3 (06:18→18:15)
[2020-09-29 06:40] LABS: Albumin/Globulin Ratio 1.3 (1-3); Globulin 2.3 g/dL (2-4); Indirect Bilirubin 0.9 mg/dL (0.3-1.0); Total Bilirubin 1.7 mg/dL (0.2-1.0); Total Protein 5.3 g/dL (6.4-8.9)
[2020-09-29 08:22] LABS: INR 1.64 (0.82-1.09)
[2020-09-29] MEDS ORDERED: fentaNYL 100 mcg/2 ml 50 MCG/ML VIAL ONE (09:06)
[2020-09-29] MEDS ORDERED: Midazolam 10 mg/10 ml VIAL 1 mg/ml 10 ml VIAL (10 mg) ONE (09:06)
[2020-09-29] MEDS ORDERED: diPHENhydraMINE IV 50 MG/ML 1 ml VIAL (BENADRYL) ONE (09:07)
[2020-09-29] MEDS: Sucralfate 1 gm SUSP 1 GM/10 ML UDC PO SCH ×4 (09:28→20:32)
[2020-09-29] MEDS: Multivitamins/Minerals TAB PO SCH (09:29)
[2020-09-29] MEDS: Thiamine 100 MG/ML 2 ml VIAL 500 MG in NS 0.9% 250 ml 250 ML IV SCH ×2 (13:39→22:19)
[2020-09-29 14:35] LABS: Hematocrit 37 % (42-52); Hemoglobin 12.1 g/dL (14.0-18.0)
[2020-09-29 14:47] LABS: BUN/Creatinine Ratio 14.3 (8-20); Calcium 6.8 mg/dL (8.6-10.3); EGFR African American 151.9 (>60); EGFR Non-African American 125.5 (>60); Potassium 3.6 mmol/L (3.5-5.0)
[2020-09-29] MEDS ORDERED: Calcium Gluconate 2 GM in NS 0.9% 100 ml BAG 100 ML IVPB ONE (15:47)
[2020-09-29 15:52] LABS: Magnesium 2.5 mg/dL (1.9-2.7); Phosphorus 1.1 mg/dL (2.5-5.0)
[2020-09-29] MEDS ORDERED: Potassium Phosphate IV 15 MMOLE in NS 0.9% 250 ml 250 ML IVPB ONE (15:53)
[2020-09-29] MEDS ORDERED: Potassium & Sodium Phos 250 mg = 1 PACKET PO SCH (17:00)
[2020-09-29] MEDS: KCL 20 MEQ/100 ML IVPREMIX 20 MEQ/100 ML BAG IV SCH ×3 (17:29→23:49)
[2020-09-29] MEDS: Dextran 70/Hypromellose Tears Eye Drops 15 ml BTL (for Artificials Tears) BOTH EYES PRN (17:48)
[2020-09-29] MEDS ORDERED: Lorazepam PYXIS KEY ONE (18:46)
[2020-09-29] MEDS ORDERED: LORazepam 2 mg VIAL 1 ml ONE (18:46)
[2020-09-29] MEDS ORDERED: Lorazepam PYXIS KEY PRN (18:47)
[2020-09-29] MEDS ORDERED: LORazepam 2 mg VIAL 1 ml IV PUSH ONE (18:47)
[2020-09-29] MEDS: cefTRIAXone 1 gm/50 mL NS BAG 1 GM/50 ML BAG IVPB SCH (20:37)
[2020-09-29 22:14] LABS: BUN/Creatinine Ratio 9.5 (8-20); Calcium 7.3 mg/dL (8.6-10.3); EGFR African American 171.6 (>60); EGFR Non-African American 141.8 (>60); Magnesium 1.5 mg/dL (1.9-2.7); Phosphorus 1.2 mg/dL (2.5-5.0); Potassium 3.6 mmol/L (3.5-5.0)
[2020-09-29] MEDS ORDERED: Magnesium Sulfate 2 gm BAG 2 GM/50 ML BAG IVPB ONE (22:16)
[2020-09-29] MEDS ORDERED: Potassium Phosphate IV 10 MMOLE in NS 0.9% 250 ml 250 ML IVPB ONE (23:00)
[2020-09-30] MEDS: Propofol 10 mg/ml 100 ML BTL 100 ML IV SCH ×5 (00:02→23:44)
[2020-09-30] MEDS: Octreotide Acetate 500 MCG in NS 0.9% 100 ml BAG 100 ML IV SCH ×3 (00:40→08:45)
[2020-09-30] MEDS: Chlorhexidine MOUTHWASH 0.12% 15 ML UDC TOPICAL SCH ×6 (01:21→21:03)
[2020-09-30] MEDS ORDERED: Potassium & Sodium Phos 250 mg = 1 PACKET PO SCH (04:00)
[2020-09-30 04:23] LABS: ABS Eosinophils 0.2 10^3/ul (0-0.6); ABS Lymphocytes 1.3 10^3/ul (1.0-4.8); ABS Monocytes 0.4 10^3/ul (0-0.8); Eosinophil % 2.9 %; Hematocrit 32 % (42-52); Hemoglobin 10.3 g/dL (14.0-18.0); Lymphocyte % 18.2 %; Mean Corpuscular HGB Conc 33 g/dL (31-36); Mean Corpuscular Hemoglobin 26 pg (27-31); Mean Corpuscular Volume 80 fL (80-94); Mean Platelet Volume 8.4 fL (7.4-10.4); Platelet Count 118 10^3/uL (150-450); Red Blood Count 3.94 10^6 /uL (4.18-5.48); Red Cell Distribution Width 21 % (10-15); White Blood Count 6.9 10^3/uL (3.5-10.8)
[2020-09-30 04:38] LABS: BUN/Creatinine Ratio 8.2 (8-20); Calcium 7.2 mg/dL (8.6-10.3); EGFR African American 178.1 (>60); EGFR Non-African American 147.2 (>60); Magnesium 1.7 mg/dL (1.9-2.7); Phosphorus 1.3 mg/dL (2.5-5.0); Potassium 3.9 mmol/L (3.5-5.0)
[2020-09-30] MEDS: Midazolam 50 MG VIAL IV DRIP 50 ML IV SCH ×4 (04:49→23:44)
[2020-09-30] MEDS: Thiamine 100 MG/ML 2 ml VIAL 500 MG in NS 0.9% 250 ml 250 ML IV SCH ×3 (06:15→21:03)
[2020-09-30] MEDS ORDERED: Magnesium Sulfate 2 gm BAG 2 GM/50 ML BAG IVPB ONE (06:51)
[2020-09-30] MEDS: Sucralfate 1 gm SUSP 1 GM/10 ML UDC PO SCH ×4 (07:59→21:00)
[2020-09-30] MEDS ORDERED: Thiamine IV 100 MG, Folic Acid 1 MG, Multiple Vitamin IV ADULT 10 ML in NS 0.9% 1000 ml... IVPB ONE (08:30)
[2020-09-30] MEDS: Pantoprazole 80 mg in NS BAG 80 MG/250 ML BAG IV SCH ×2 (08:45→19:25)
[2020-09-30] MEDS ORDERED: Potassium Phosphate IV 15 MMOLE in NS 0.9% 250 ml 250 ML IVPB ONE (09:03)
[2020-09-30] MEDS ORDERED: POTASSIUM PHOSPHATE IVPB ONE (09:30)
[2020-09-30] MEDS ORDERED: Magnesium Sulf 4 GM/100 ML IV 4,000 MG/100 ML BAG IVPB ONE (09:30)
[2020-09-30] MEDS ORDERED: NS IVPB ONE (09:30)
[2020-09-30] MEDS ORDERED: fentaNYL 100 mcg/2 ml 50 MCG/ML VIAL IV SLOW PU ONE (19:15)
[2020-09-30 20:08] LABS: ABS Eosinophils 0.1 10^3/ul (0-0.6); ABS Lymphocytes 0.9 10^3/ul (1.0-4.8); ABS Monocytes 0.3 10^3/ul (0-0.8); ABS Neutrophils 3.3 10^3/ul (1.5-7.7); Eosinophil % 2.9 %; Hematocrit 29 % (42-52); Hemoglobin 9.5 g/dL (14.0-18.0); Lymphocyte % 19.4 %; Mean Corpuscular HGB Conc 33 g/dL (31-36); Mean Corpuscular Hemoglobin 26 pg (27-31); Mean Corpuscular Volume 80 fL (80-94); Mean Platelet Volume 8.6 fL (7.4-10.4); Platelet Count 124 10^3/uL (150-450); Red Blood Count 3.62 10^6 /uL (4.18-5.48); Red Cell Distribution Width 21 % (10-15); White Blood Count 4.8 10^3/uL (3.5-10.8)
[2020-09-30] MEDS: cefTRIAXone 1 gm/50 mL NS BAG 1 GM/50 ML BAG IVPB SCH (20:16)
[2020-09-30 20:25] LABS: Albumin 2.7 g/dL (3.2-5.2); Albumin/Globulin Ratio 1.1 (1-3); BUN/Creatinine Ratio 6.9 (8-20); Calcium 6.7 mg/dL (8.6-10.3); EGFR African American 188.7 (>60); Globulin 2.5 g/dL (2-4); Phosphorus 2.5 mg/dL (2.5-5.0); Potassium 3.9 mmol/L (3.5-5.0); Total Bilirubin 0.8 mg/dL (0.2-1.0); Total Protein 5.2 g/dL (6.4-8.9)
[2020-10-01] MEDS: Chlorhexidine MOUTHWASH 0.12% 15 ML UDC TOPICAL SCH ×6 (00:50→20:04)
[2020-10-01 03:56] LABS: ABS Eosinophils 0.1 10^3/ul (0-0.6); ABS Lymphocytes 1.1 10^3/ul (1.0-4.8); ABS Monocytes 0.4 10^3/ul (0-0.8); ABS Neutrophils 3.3 10^3/ul (1.5-7.7); Eosinophil % 2.5 %; Hematocrit 29 % (42-52); Hemoglobin 9.5 g/dL (14.0-18.0); Lymphocyte % 21.4 %; Mean Corpuscular HGB Conc 33 g/dL (31-36); Mean Corpuscular Hemoglobin 26 pg (27-31); Mean Corpuscular Volume 81 fL (80-94); Mean Platelet Volume 8.6 fL (7.4-10.4); Platelet Count 141 10^3/uL (150-450); Red Blood Count 3.62 10^6 /uL (4.18-5.48); Red Cell Distribution Width 21 % (10-15)
[2020-10-01 04:12] LABS: BUN/Creatinine Ratio 6.1 (8-20); Calcium 6.8 mg/dL (8.6-10.3); EGFR African American 162.6 (>60); EGFR Non-African American 134.4 (>60); Magnesium 1.6 mg/dL (1.9-2.7); Potassium 3.6 mmol/L (3.5-5.0)
[2020-10-01] MEDS: Pantoprazole 80 mg in NS BAG 80 MG/250 ML BAG IV SCH ×2 (04:47→15:12)
[2020-10-01] MEDS: Thiamine 100 MG/ML 2 ml VIAL 500 MG in NS 0.9% 250 ml 250 ML IV SCH (05:11)
[2020-10-01] MEDS: Midazolam 50 MG VIAL IV DRIP 50 ML IV SCH (05:11)
[2020-10-01] MEDS: Propofol 10 mg/ml 100 ML BTL 100 ML IV SCH ×4 (05:52→22:46)
[2020-10-01] MEDS ORDERED: Magnesium Sulfate 2 gm BAG 2 GM/50 ML BAG IVPB ONE (06:06)
[2020-10-01] MEDS ORDERED: Potassium Phosphate IV 15 MMOLE in NS 0.9% 250 ml 250 ML IVPB ONE (06:30)
[2020-10-01] MEDS: Sucralfate 1 gm SUSP 1 GM/10 ML UDC PO SCH ×4 (08:25→21:07)
[2020-10-01] MEDS: cefTRIAXone 1 gm/50 mL NS BAG 1 GM/50 ML BAG IVPB SCH (20:04)
[2020-10-02] MEDS: Midazolam 50 MG VIAL IV DRIP 50 ML IV SCH ×2 (00:20→12:48)
[2020-10-02] MEDS: Chlorhexidine MOUTHWASH 0.12% 15 ML UDC TOPICAL SCH ×6 (00:28→20:33)
[2020-10-02] MEDS: Pantoprazole 80 mg in NS BAG 80 MG/250 ML BAG IV SCH ×2 (00:34→11:03)
[2020-10-02] MEDS ORDERED: Propofol 10 MG/ML 20 ML BTL ONE (01:16)
[2020-10-02] MEDS: Propofol 10 mg/ml 100 ML BTL 100 ML IV SCH ×7 (02:57→23:16)
[2020-10-02 04:32] LABS: Hematocrit 29 % (42-52); Hemoglobin 9.9 g/dL (14.0-18.0); Mean Corpuscular HGB Conc 34 g/dL (31-36); Mean Corpuscular Hemoglobin 27 pg (27-31); Mean Corpuscular Volume 80 fL (80-94); Mean Platelet Volume 8.1 fL (7.4-10.4); Platelet Count 201 10^3/uL (150-450); Red Blood Count 3.66 10^6 /uL (4.18-5.48); Red Cell Distribution Width 20 % (10-15); White Blood Count 5.2 10^3/uL (3.5-10.8)
[2020-10-02 04:55] LABS: BUN/Creatinine Ratio 5.2 (8-20); Calcium 7.3 mg/dL (8.6-10.3); EGFR African American 188.7 (>60); Potassium 3.6 mmol/L (3.5-5.0)
[2020-10-02 07:39] LABS: Magnesium 1.3 mg/dL (1.9-2.7); Phosphorus 2.4 mg/dL (2.5-5.0)
[2020-10-02] MEDS: Sucralfate 1 gm SUSP 1 GM/10 ML UDC PO SCH ×4 (08:58→20:33)
[2020-10-02] MEDS ORDERED: Potassium Phosphate IV 15 MMOLE in NS 0.9% 250 ml 250 ML IVPB ONE (09:22)
[2020-10-02] MEDS ORDERED: Magnesium Sulf 4 GM/100 ML IV 4,000 MG/100 ML BAG IVPB ONE (09:22)
[2020-10-02] MEDS: Thiamine IV 250 MG in NS 0.9% 100 ML Q24H IV SCH (10:05)
[2020-10-02] MEDS: Pantoprazole VIAL 40 MG VIAL IV SCH (13:19)
[2020-10-02] MEDS ORDERED: Magnesium Sulfate IV 3 GM in NS 0.9% 100 ml BAG 100 ML IVPB ONE (14:26)
[2020-10-02 21:28] LABS: Herpes Source esphageal brush
[2020-10-03] MEDS: Chlorhexidine MOUTHWASH 0.12% 15 ML UDC TOPICAL SCH ×6 (00:48→20:01)
[2020-10-03 05:35] LABS: Hematocrit 31 % (42-52); Hemoglobin 10.1 g/dL (14.0-18.0); Mean Corpuscular HGB Conc 33 g/dL (31-36); Mean Corpuscular Hemoglobin 27 pg (27-31); Mean Corpuscular Volume 81 fL (80-94); Mean Platelet Volume 7.9 fL (7.4-10.4); Platelet Count 257 10^3/uL (150-450); Red Blood Count 3.77 10^6 /uL (4.18-5.48); Red Cell Distribution Width 21 % (10-15)
[2020-10-03 05:50] LABS: BUN/Creatinine Ratio 5.1 (8-20); Calcium 8.2 mg/dL (8.6-10.3); EGFR Non-African American 152.9 (>60); Potassium 3.7 mmol/L (3.5-5.0)
[2020-10-03] MEDS: Dextran 70/Hypromellose Tears Eye Drops 15 ml BTL (for Artificials Tears) BOTH EYES PRN ×2 (08:14→16:32)
[2020-10-03] MEDS: Pantoprazole VIAL 40 MG VIAL IV SCH (08:14)
[2020-10-03] MEDS: Dexmedetomidine 1,000 MCG in NS 0.9% 250 ml 240 ML IV SCH (08:14)
[2020-10-03] MEDS: Sucralfate 1 gm SUSP 1 GM/10 ML UDC PO SCH ×4 (08:14→20:01)
[2020-10-03 08:24] LABS: Magnesium 1.6 mg/dL (1.9-2.7)
[2020-10-03] MEDS: Thiamine IV 250 MG in NS 0.9% 100 ML Q24H IV SCH (08:51)
[2020-10-03] MEDS: Propofol 10 mg/ml 100 ML BTL 100 ML IV SCH ×5 (08:54→23:13)
[2020-10-03] MEDS ORDERED: Magnesium Sulf 4 GM/100 ML IV 4,000 MG/100 ML BAG IVPB ONE (09:26)
[2020-10-03] MEDS ORDERED: Amiodarone 360 MG IVPREMIX 360 MG/200 ML BAG IV SCH (15:30)
[2020-10-04] MEDS: Chlorhexidine MOUTHWASH 0.12% 15 ML UDC TOPICAL SCH ×6 (01:00→20:58)
[2020-10-04] MEDS: Propofol 10 mg/ml 100 ML BTL 100 ML IV SCH ×5 (03:00→21:13)
[2020-10-04 05:55] LABS: Hematocrit 31 % (42-52); Hemoglobin 10.5 g/dL (14.0-18.0); Mean Corpuscular HGB Conc 33 g/dL (31-36); Mean Corpuscular Hemoglobin 27 pg (27-31); Mean Corpuscular Volume 80 fL (80-94); Mean Platelet Volume 7.7 fL (7.4-10.4); Platelet Count 294 10^3/uL (150-450); Red Blood Count 3.92 10^6 /uL (4.18-5.48); Red Cell Distribution Width 21 % (10-15)
[2020-10-04] MEDS ORDERED: Magnesium Sulfate 2 gm BAG 2 GM/50 ML BAG IVPB ONE (06:08)
[2020-10-04] MEDS ORDERED: Magnesium Sulfate 2 gm BAG 2 GM/50 ML BAG ONE (06:12)
[2020-10-04 08:11] LABS: BUN/Creatinine Ratio 5.9 (8-20); Calcium 8.8 mg/dL (8.6-10.3); EGFR African American 218.9 (>60); EGFR Non-African American 180.9 (>60); Potassium 3.5 mmol/L (3.5-5.0)
[2020-10-04] MEDS: Sucralfate 1 gm SUSP 1 GM/10 ML UDC PO SCH ×4 (09:20→20:58)
[2020-10-04] MEDS: Thiamine IV 250 MG in NS 0.9% 100 ML Q24H IV SCH (09:38)
[2020-10-04] MEDS: Pantoprazole VIAL 40 MG VIAL IV SCH (09:48)
[2020-10-04] MEDS: Midazolam 50 MG VIAL IV DRIP 50 ML IV SCH (16:31)
[2020-10-04] MEDS: Dexmedetomidine 1,000 MCG in NS 0.9% 250 ml 240 ML IV SCH (16:49)
[2020-10-05] MEDS: Chlorhexidine MOUTHWASH 0.12% 15 ML UDC TOPICAL SCH ×5 (00:35→17:07)
[2020-10-05] MEDS: Propofol 10 mg/ml 100 ML BTL 100 ML IV SCH ×5 (00:35→12:57)
[2020-10-05] MEDS: Lactated Ringers 1000 ml BAG 1,000 ML IV SCH ×2 (01:24→19:33)
[2020-10-05 05:09] LABS: ABS Eosinophils 0.1 10^3/ul (0-0.6); ABS Lymphocytes 1.1 10^3/ul (1.0-4.8); ABS Monocytes 1.1 10^3/ul (0-0.8); ABS Neutrophils 2.6 10^3/ul (1.5-7.7); Eosinophil % 1.5 %; Hematocrit 31 % (42-52); Hemoglobin 10.6 g/dL (14.0-18.0); Lymphocyte % 22.6 %; Mean Corpuscular HGB Conc 34 g/dL (31-36); Mean Corpuscular Hemoglobin 27 pg (27-31); Mean Corpuscular Volume 80 fL (80-94); Mean Platelet Volume 7.7 fL (7.4-10.4); Platelet Count 352 10^3/uL (150-450); Red Blood Count 3.95 10^6 /uL (4.18-5.48); Red Cell Distribution Width 20 % (10-15)
[2020-10-05 05:27] LABS: BUN/Creatinine Ratio 7.1 (8-20); Calcium 9.1 mg/dL (8.6-10.3); EGFR African American 196.5 (>60); EGFR Non-African American 162.4 (>60); Magnesium 1.2 mg/dL (1.9-2.7); Phosphorus 3.9 mg/dL (2.5-5.0); Potassium 3.4 mmol/L (3.5-5.0)
[2020-10-05] MEDS ORDERED: KCL 20 MEQ/100 ML IVPREMIX 20 MEQ/100 ML BAG IV ONE (06:49)
[2020-10-05] MEDS: Sucralfate 1 gm SUSP 1 GM/10 ML UDC PO SCH ×4 (07:53→21:29)
[2020-10-05] MEDS: Dextran 70/Hypromellose Tears Eye Drops 15 ml BTL (for Artificials Tears) BOTH EYES PRN (07:53)
[2020-10-05] MEDS ORDERED: Magnesium Sulf 4 GM/100 ML IV 4,000 MG/100 ML BAG IVPB ONE (08:00)
[2020-10-05] MEDS: Pantoprazole VIAL 40 MG VIAL IV SCH (08:05)
[2020-10-05] MEDS: Ciprofloxacin 0.3% OPTH.SOL BTL BOTH EYES SCH ×4 (10:37→21:30)
[2020-10-05] MEDS: Thiamine IV 250 MG in NS 0.9% 100 ML Q24H IV SCH ×2 (10:38→11:04)
[2020-10-05] MEDS ORDERED: Acetaminophen IV 1 GM/100ML 1,000 MG/100 ML VIAL IVPB ONE (15:06)
[2020-10-05] MEDS ORDERED: Dexmedetomidine 1,000 MCG in NS 0.9% 250 ml 240 ML IV SCH (18:45)
[2020-10-06] MEDS: Ciprofloxacin 0.3% OPTH.SOL BTL BOTH EYES SCH ×6 (01:36→22:55)
[2020-10-06 04:35] LABS: BUN/Creatinine Ratio 6.9 (8-20); Calcium 9.1 mg/dL (8.6-10.3); EGFR African American 188.7 (>60); Magnesium 1.3 mg/dL (1.9-2.7); Potassium 3.5 mmol/L (3.5-5.0)
[2020-10-06] MEDS ORDERED: Lactated Ringers 1000 ml BAG 1,000 ML IV SCH (07:45)
[2020-10-06] MEDS ORDERED: Magnesium Sulf 4 GM/100 ML IV 4,000 MG/100 ML BAG IVPB ONE (07:46)
[2020-10-06] MEDS: Pantoprazole VIAL 40 MG VIAL IV SCH (07:59)
[2020-10-06] MEDS: Sucralfate 1 gm SUSP 1 GM/10 ML UDC PO SCH ×4 (07:59→22:07)
[2020-10-06] MEDS: Thiamine IV 250 MG in NS 0.9% 100 ML Q24H IV SCH (08:14)
[2020-10-06] MEDS ORDERED: Morphine 2 MG/ML SYRINGE IV PRN (21:28)
[2020-10-06] MEDS: Dextran 70/Hypromellose Tears Eye Drops 15 ml BTL (for Artificials Tears) BOTH EYES PRN (22:07)
[2020-10-07] MEDS: Ciprofloxacin 0.3% OPTH.SOL BTL BOTH EYES SCH ×4 (02:53→14:30)
[2020-10-07] MEDS: Sucralfate 1 gm SUSP 1 GM/10 ML UDC PO SCH ×3 (07:58→16:54)
[2020-10-07] MEDS: Pantoprazole VIAL 40 MG VIAL IV SCH (09:58)
[2020-10-07] MEDS ORDERED: Magnesium Sulfate 2 gm BAG 2 GM/50 ML BAG IVPB ONE (11:20)
[2020-10-07 12:37] VITALS: BP 105/69
== END 2020-10-07 17:10 | disposition home or self-care (01) | DRG 775 ==
LOC: ED 23:48 → MEDTELE 09-28 02:23 → ICU 09-29 03:40 → MEDTELE 10-06 16:38
PROVIDERS: ADMIT Student in an Organized Health Care Education/Training Program; ATTEND Internal Medicine

== ENCOUNTER 2021-06-10 14:34 | Inpatient (IN) ==
[2021-06-10] MEDS ORDERED: Ondansetron ODT 4 mg TAB 4 MG TAB PO ONE (15:40)
[2021-06-10 19:03] LABS: Lipase 1027 U/L (11.0-82.0)
[2021-06-10] MEDS ORDERED: Morphine 4 MG/ML VIAL (1 ml) IV ONE ×2 (20:08→22:10)
[2021-06-10] MEDS ORDERED: Lactated Ringers 1000 ml BAG 1,000 ML IV ONE (20:08)
[2021-06-10] MEDS ORDERED: Ondansetron 4 mg VIAL 2 MG/ML 2 ml VIAL IV ONE (20:14)
[2021-06-10] MEDS ORDERED: Metoclopramide 5 MG/ML VIAL (10 mg) IV SLOW PU ONE (22:10)
[2021-06-10] MEDS ORDERED: Iohexol 300 (CONTRAST) 10 ML SDV IV ONE (22:37)
[2021-06-10 23:45] LABS: Rapid COVID-19 Molecular Undetected (Undetected)
[2021-06-11 00:28] LABS: ABS Basophils 0.1 10^3/ul (0-0.2); ABS Eosinophils 0.3 10^3/ul (0-0.6); ABS Lymphocytes 2.5 10^3/ul (1.0-4.8); ABS Monocytes 0.7 10^3/ul (0-0.8); ABS Neutrophils 7.6 10^3/ul (1.5-7.7); Eosinophil % 2.4 %; Hematocrit 41 % (42-52); Hemoglobin 13.8 g/dL (14.0-18.0); Lymphocyte % 22.4 %; Mean Corpuscular HGB Conc 34 g/dL (31-36); Mean Corpuscular Hemoglobin 29 pg (27-31); Mean Corpuscular Volume 86 fL (80-94); Mean Platelet Volume 7.8 fL (7.4-10.4); Nucleated Red Blood Cells % 0.1; Platelet Count 264 10^3/uL (150-450); Red Blood Count 4.73 10^6 /uL (4.18-5.48); Red Cell Distribution Width 16 % (10-15); White Blood Count 11.1 10^3/uL (3.5-10.8)
[2021-06-11] MEDS ORDERED: Lactated Ringers 1000 ml BAG 1,000 ML IV ONE (00:30)
[2021-06-11] MEDS ORDERED: HYDROmorphone 1 MG/1 ML SYRINGE IV PRN (00:31)
[2021-06-11 00:46] LABS: Albumin 4.4 g/dL (3.2-5.2); Albumin/Globulin Ratio 1.1 (1-3); Globulin 4.1 g/dL (2-4); Potassium 3.2 mmol/L (3.5-5.0); Total Bilirubin 2.8 mg/dL (0.2-1.0); Total Protein 8.5 g/dL (6.4-8.9)
[2021-06-11] MEDS ORDERED: Lactated Ringers 1000 ml BAG 1,000 ML IV SCH (01:00)
[2021-06-11 01:37] LABS: Urine Appearance Clear; Urine Bilirubin Negative (Negative); Urine Blood Negative (Negative); Urine Color Yellow; Urine Glucose Negative (Negative); Urine Ketones 2+ (Negative); Urine Nitrite Negative (Negative); Urine Protein 2+(100 mg/dL) (Negative); Urine Specific Gravity 1.056 (1.002-1.030); Urine Urobilinogen Negative (Negative)
[2021-06-11] MEDS: Lactated Ringers 1000 ml BAG 1,000 ML IV SCH ×3 (01:40→21:38)
[2021-06-11 01:50] LABS: Magnesium 1.1 mg/dL (1.9-2.7)
[2021-06-11 01:50] LABS: Urine Bacteria Absent (Absent); Urine Red Blood Cell Trace(0-2/hpf) (Absent); Urine White Blood Cell Trace(0-5/hpf) (Absent)
[2021-06-11] MEDS ORDERED: Magnesium Sulf 4 GM/100 ML IV 4,000 MG/100 ML BAG IVPB ONE (02:18)
[2021-06-11 02:44] LABS: HDL Cholesterol 45.9 mg/dL
[2021-06-11 03:24] LABS: Urine Benzodiazepine Screen None Detected (None Detect); Urine Cannabinoids Screen None Detected (None Detect); Urine Opiates Screen Presumptive Positive (None Detect)
[2021-06-11] MEDS: Ondansetron 4 mg VIAL 2 MG/ML 2 ml VIAL IV PRN ×4 (04:02→23:37)
[2021-06-11 04:09] LABS: Alcohol, S < 13 mg/dL (<13)
[2021-06-11] MEDS ORDERED: diPHENhydraMINE IV 50 MG/ML 1 ml VIAL (BENADRYL) IV ONE (04:57)
[2021-06-11] MEDS: HYDROmorphone 0.5 MG/0.5 ML SYRINGE IV PRN ×5 (05:18→21:36)
[2021-06-11] MEDS ORDERED: Omeprazole 20 mg CAP (NF) PO SCH (09:00)
[2021-06-11] MEDS ORDERED: HYDROmorphone 0.5 MG/0.5 ML SYRINGE IV PRN (17:33)
[2021-06-11] MEDS: Potassium Chlor 20 meq TAB.ER PO SCH (23:03)
[2021-06-12] MEDS: HYDROmorphone 0.5 MG/0.5 ML SYRINGE IV PRN ×2 (02:18→06:21)
[2021-06-12] MEDS: Lactated Ringers 1000 ml BAG 1,000 ML IV SCH ×3 (04:29→15:13)
[2021-06-12] MEDS: Ondansetron 4 mg VIAL 2 MG/ML 2 ml VIAL IV PRN ×3 (05:37→19:37)
[2021-06-12 06:31] LABS: Hematocrit 34 % (42-52); Hemoglobin 11.7 g/dL (14.0-18.0); Mean Corpuscular HGB Conc 35 g/dL (31-36); Mean Corpuscular Hemoglobin 30 pg (27-31); Mean Corpuscular Volume 87 fL (80-94); Mean Platelet Volume 8.3 fL (7.4-10.4); Platelet Count 171 10^3/uL (150-450); Red Blood Count 3.88 10^6 /uL (4.18-5.48); Red Cell Distribution Width 16 % (10-15); White Blood Count 7.3 10^3/uL (3.5-10.8)
[2021-06-12 06:36] LABS: Calcium 8.3 mg/dL (8.6-10.3); Magnesium 1.5 mg/dL (1.9-2.7); Phosphorus 2.2 mg/dL (2.5-5.0); Potassium 3.4 mmol/L (3.5-5.0)
[2021-06-12] MEDS: Potassium Chlor 20 meq TAB.ER PO SCH ×2 (07:34→08:09)
[2021-06-12] MEDS ORDERED: Potassium Phosphate IV 10 MMOLE in NS 0.9% 250 ml 250 ML IVPB ONE (08:03)
[2021-06-12] MEDS ORDERED: Magnesium Sulf 4 GM/100 ML IV 4,000 MG/100 ML BAG IVPB ONE (08:03)
[2021-06-12] MEDS ORDERED: HYDROmorphone 0.5 MG/0.5 ML SYRINGE IV PRN (08:04)
[2021-06-12] MEDS ORDERED: Potassium Chloride LIQUID 20 MEQ/15 ML LIQUID PO ONE (09:33)
[2021-06-12] MEDS: HYDROmorphone 1 MG/1 ML SYRINGE IV PRN ×4 (10:44→23:39)
[2021-06-13] MEDS: HYDROmorphone 1 MG/1 ML SYRINGE IV PRN ×2 (03:51→09:43)
[2021-06-13] MEDS: Ondansetron 4 mg VIAL 2 MG/ML 2 ml VIAL IV PRN ×2 (03:51→09:43)
[2021-06-13 06:22] LABS: Calcium 9.2 mg/dL (8.6-10.3); Magnesium 1.5 mg/dL (1.9-2.7); Phosphorus 3.8 mg/dL (2.5-5.0); Potassium 3.7 mmol/L (3.5-5.0)
[2021-06-13] MEDS ORDERED: Benzocaine/Menthol LOZ MT PRN (07:14)
[2021-06-13] MEDS ORDERED: Magnesium Sulf 4 GM/100 ML IV 4,000 MG/100 ML BAG IVPB ONE (07:36)
[2021-06-13 16:17] VITALS: BP 108/72
== END 2021-06-13 18:00 | disposition home or self-care (01) | DRG 282 ==
LOC: ED 14:34 → EDHOLD 06-11 00:22 → SUATTDRO 06-11 00:22 → EDHOLD 06-11 16:23 → MEDTELE 06-11 16:34 → SSU 06-13 00:40
PROVIDERS: ADMIT Internal Medicine; ATTEND Internal Medicine

== ENCOUNTER 2021-07-08 03:17 | Observation (INO) ==
[2021-07-08] MEDS ORDERED: Lactated Ringers 1000 ml BAG 1,000 ML IV ONE ×3 (08:44→12:53)
[2021-07-08] MEDS ORDERED: Ondansetron 4 mg VIAL 2 MG/ML 2 ml VIAL IV ONE ×2 (08:44→11:36)
[2021-07-08] MEDS ORDERED: Morphine 4 MG/ML VIAL (1 ml) IV ONE ×2 (08:46→11:36)
[2021-07-08 09:23] LABS: ABS Basophils 0.1 10^3/ul (0-0.2); ABS Lymphocytes 1.7 10^3/ul (1.0-4.8); ABS Monocytes 0.8 10^3/ul (0-0.8); Eosinophil % 0.1 %; Hematocrit 48 % (42-52); Hemoglobin 16.3 g/dL (14.0-18.0); Lymphocyte % 10.3 %; Mean Corpuscular HGB Conc 34 g/dL (31-36); Mean Corpuscular Hemoglobin 29 pg (27-31); Mean Corpuscular Volume 85 fL (80-94); Mean Platelet Volume 8.7 fL (7.4-10.4); Platelet Count 300 10^3/uL (150-450); Red Cell Distribution Width 17 % (10-15); White Blood Count 16.6 10^3/uL (3.5-10.8)
[2021-07-08 09:43] LABS: ALT 32 U/L (7-52); Albumin 5.1 g/dL (3.2-5.2); Albumin/Globulin Ratio 0.9 (1-3); Alkaline Phosphatase 113 U/L (35-149); Blood Urea Nitrogen 31 mg/dL (6-24); CO2 Carbon Dioxide 32 mmol/L (22-32); Calcium 10.4 mg/dL (8.6-10.3); Chloride 73 mmol/L (101-111); Globulin 5.5 g/dL (2-4); Glucose 155 mg/dL (70-100); Lipase 58 U/L (11.0-82.0); Sodium 133 mmol/L (135-145); Total Protein 10.6 g/dL (6.4-8.9)
[2021-07-08] MEDS ORDERED: cefTRIAXone 1 gm/50 mL NS BAG 1 GM/50 ML BAG IVPB ONE (10:58)
[2021-07-08 12:05] LABS: Anion Gap 28 mmol/L (2-11)
[2021-07-08 12:42] LABS: Rapid COVID-19 Molecular Undetected (Undetected)
[2021-07-08] MEDS ORDERED: LORazepam 2 mg VIAL 1 ml IV PUSH ONE ×2 (13:15→16:06)
[2021-07-08] MEDS ORDERED: Lorazepam PYXIS KEY PRN ×2 (13:15→16:06)
[2021-07-08 16:13] LABS: Magnesium 1.8 mg/dL (1.9-2.7)
[2021-07-08] MEDS ORDERED: Famotidine IV 10 MG/ML 2 ml VIAL (20 mg) IV SLOW PU ONE (16:17)
[2021-07-08 16:32] LABS: Urine Appearance Cloudy; Urine Bilirubin Negative (Negative); Urine Blood Negative (Negative); Urine Color Yellow; Urine Glucose Negative (Negative); Urine Ketones 2+ (Negative); Urine Nitrite Negative (Negative); Urine Protein 2+(100 mg/dL) (Negative); Urine Specific Gravity 1.023 (1.002-1.030); Urine Urobilinogen Negative (Negative)
[2021-07-08 16:36] LABS: Urine Bacteria Absent (Absent); Urine Red Blood Cell Trace(0-2/hpf) (Absent); Urine White Blood Cell 1+(6-10/hpf) (Absent)
[2021-07-08] MEDS ORDERED: ESOMEPRAZOLE 40 MG PO SCH (17:00)
[2021-07-08] MEDS: Lactated Ringers 1000 ml BAG 1,000 ML IV SCH (20:02)
[2021-07-08] MEDS: KCL 20 MEQ/100 ML IVPREMIX 20 MEQ/100 ML BAG IV SCH (20:02)
[2021-07-08] MEDS: Trimethobenzamide *IM* 100 mg/ml 2 ml VIAL (200 mg) IM PRN (20:56)
[2021-07-08] MEDS: LORazepam 2 mg VIAL 1 ml IV PUSH PRN (21:02)
[2021-07-08 21:39] LABS: Calcium 9.3 mg/dL (8.6-10.3); Potassium 2.8 mmol/L (3.5-5.0)
[2021-07-09] MEDS: KCL 20 MEQ/100 ML IVPREMIX 20 MEQ/100 ML BAG IV SCH ×4 (01:46→11:56)
[2021-07-09] MEDS ORDERED: LORazepam 2 mg VIAL 1 ml IV PUSH SCH (02:00)
[2021-07-09] MEDS ORDERED: Multivitamins/Minerals TAB PO SCH (02:00)
[2021-07-09 02:56] LABS: Alcohol, S < 13 mg/dL (<13)
[2021-07-09] MEDS: KCL 10 MEQ/50 ML IVPREMIX 10 MEQ/50 ML BAG ONE ×2 (04:03→04:07)
[2021-07-09 04:23] LABS: ABS Basophils 0.1 10^3/ul (0-0.2); ABS Eosinophils 0.2 10^3/ul (0-0.6); ABS Lymphocytes 2.5 10^3/ul (1.0-4.8); ABS Monocytes 0.8 10^3/ul (0-0.8); ABS Neutrophils 6.4 10^3/ul (1.5-7.7); Eosinophil % 1.8 %; Hematocrit 38 % (42-52); Hemoglobin 13.1 g/dL (14.0-18.0); Lymphocyte % 25.1 %; Mean Corpuscular HGB Conc 34 g/dL (31-36); Mean Corpuscular Hemoglobin 29 pg (27-31); Mean Corpuscular Volume 86 fL (80-94); Mean Platelet Volume 8.2 fL (7.4-10.4); Platelet Count 192 10^3/uL (150-450); Red Blood Count 4.48 10^6 /uL (4.18-5.48); Red Cell Distribution Width 17 % (10-15); White Blood Count 9.9 10^3/uL (3.5-10.8)
[2021-07-09 04:40] LABS: ALT 22 U/L (7-52); AST 42 U/L (13-39); Albumin 3.9 g/dL (3.2-5.2); Alkaline Phosphatase 81 U/L (35-149); Anion Gap 8 mmol/L (2-11); Blood Urea Nitrogen 25 mg/dL (6-24); CO2 Carbon Dioxide 37 mmol/L (22-32); Calcium 8.8 mg/dL (8.6-10.3); Chloride 87 mmol/L (101-111); Globulin 3.8 g/dL (2-4); Glucose 110 mg/dL (70-100); Sodium 132 mmol/L (135-145); Total Protein 7.7 g/dL (6.4-8.9)
[2021-07-09 04:55] LABS: Alcohol, S < 13 mg/dL (<13)
[2021-07-09] MEDS: Lactated Ringers 1000 ml BAG 1,000 ML IV SCH ×2 (08:11→14:57)
[2021-07-09] MEDS: LORazepam 2 mg VIAL 1 ml IV PUSH PRN (08:28)
[2021-07-09] MEDS: Trimethobenzamide *IM* 100 mg/ml 2 ml VIAL (200 mg) IM PRN (08:37)
[2021-07-09] MEDS ORDERED: Potassium Chlor 20 meq TAB.ER PO ONE (08:44)
[2021-07-09] MEDS ORDERED: Vitamin THERAPEUTIC TAB PO SCH (09:00)
[2021-07-09] MEDS ORDERED: Potassium Chloride LIQUID 20 MEQ/15 ML LIQUID PO SCH (09:00)
[2021-07-09 09:07] LABS: Magnesium 1.9 mg/dL (1.9-2.7)
[2021-07-09 15:24] VITALS: BP 114/75
== END 2021-07-09 16:15 | disposition home or self-care (01) ==
LOC: ED 03:17 → INTOOBSV 15:21 → MED 15:21
PROVIDERS: ADMIT Hospitalist; ATTEND Hospitalist

== ENCOUNTER 2021-08-27 19:07 | Inpatient (IN) ==
[2021-08-27] MEDS ORDERED: Lactated Ringers 1000 ml BAG 1,000 ML IV ONE ×3 (19:12→21:17)
[2021-08-27] MEDS ORDERED: Droperidol 5 MG/2 ML 2 ML VIAL IV ONE (19:13)
[2021-08-27] MEDS ORDERED: HYDROmorphone 1 MG/1 ML SYRINGE IV ONE (19:14)
[2021-08-27 20:49] LABS: ABS Basophils 0.1 10^3/ul (0-0.2); ABS Lymphocytes 2.9 10^3/ul (1.0-4.8); ABS Monocytes 1.4 10^3/ul (0-0.8); Hematocrit 47 % (42-52); Hemoglobin 15.8 g/dL (14.0-18.0); Lymphocyte % 14.3 %; Mean Corpuscular HGB Conc 34 g/dL (31-36); Mean Corpuscular Hemoglobin 28 pg (27-31); Mean Corpuscular Volume 83 fL (80-94); Mean Platelet Volume 8.3 fL (7.4-10.4); Nucleated Red Blood Cells % 0.1; Platelet Count 403 10^3/uL (150-450); Red Blood Count 5.65 10^6 /uL (4.18-5.48); Red Cell Distribution Width 16 % (10-15); White Blood Count 20.4 10^3/uL (3.5-10.8)
[2021-08-27 21:12] LABS: Albumin 5.4 g/dL (3.2-5.2); Albumin/Globulin Ratio 1.1 (1-3); C Reactive Protein 7.05 mg/L (<8.01); Calcium 10.4 mg/dL (8.6-10.3); Globulin 5.1 g/dL (2-4); Magnesium 1.3 mg/dL (1.9-2.7); Potassium 2.9 mmol/L (3.5-5.0); Total Bilirubin 1.4 mg/dL (0.2-1.0); Total Protein 10.5 g/dL (6.4-8.9)
[2021-08-27] MEDS ORDERED: Magnesium Sulfate 2 gm BAG 2 GM/50 ML BAG IVPB ONE ×2 (21:15→23:57)
[2021-08-27] MEDS: KCL 20 MEQ/100 ML IVPREMIX 20 MEQ/100 ML BAG IV SCH (23:20)
[2021-08-27] MEDS ORDERED: HYDROmorphone 0.5 MG/0.5 ML SYRINGE IV ONE (23:34)
[2021-08-27] MEDS ORDERED: NS 0.9% w/ 40 Meq KCL 1000 ML 1,000 ML IV SCH (23:45)
[2021-08-28] MEDS ORDERED: HYDROmorphone 1 MG/1 ML SYRINGE IV PRN ×2 (00:01→02:18)
[2021-08-28] MEDS ORDERED: Acetaminophen IV 1 GM/100ML 100 ML IV PRN (00:02)
[2021-08-28] MEDS ORDERED: cefTRIAXone 1 gm/50 mL NS BAG 1 GM/50 ML BAG IVPB ONE (00:41)
[2021-08-28 01:17] LABS: Urine Appearance Turbid; Urine Bilirubin Negative (Negative); Urine Blood 1+ (Negative); Urine Color Amber; Urine Glucose 1+(50 mg/dL) (Negative); Urine Ketones 1+ (Negative); Urine Nitrite Negative (Negative); Urine Protein 3+(>=500 mg/dL) (Negative); Urine Specific Gravity 1.022 (1.002-1.030); Urine Urobilinogen Negative (Negative)
[2021-08-28 01:32] LABS: Urine Bacteria 1+ (Absent); Urine Red Blood Cell 1+(3-5/hpf) (Absent); Urine Squamous Epithelial Cell Present (Absent); Urine White Blood Cell 2+(11-20/hpf) (Absent)
[2021-08-28] MEDS: HYDROmorphone 0.5 MG/0.5 ML SYRINGE IV PRN ×3 (03:29→21:26)
[2021-08-28] MEDS: KCL 20 MEQ/100 ML IVPREMIX 20 MEQ/100 ML BAG IV SCH (03:32)
[2021-08-28] MEDS: Pantoprazole 80 mg in NS BAG 80 MG/250 ML BAG IV SCH ×2 (03:42→14:12)
[2021-08-28 06:25] LABS: Hematocrit 40 % (42-52); Hemoglobin 13.3 g/dL (14.0-18.0); Mean Corpuscular HGB Conc 33 g/dL (31-36); Mean Corpuscular Hemoglobin 28 pg (27-31); Mean Corpuscular Volume 85 fL (80-94); Mean Platelet Volume 8.1 fL (7.4-10.4); Platelet Count 300 10^3/uL (150-450); Red Blood Count 4.75 10^6 /uL (4.18-5.48); Red Cell Distribution Width 16 % (10-15); White Blood Count 17.2 10^3/uL (3.5-10.8)
[2021-08-28 06:40] LABS: Albumin 4.4 g/dL (3.2-5.2); Albumin/Globulin Ratio 1.1 (1-3); Magnesium 2.9 mg/dL (1.9-2.7); Potassium 3.4 mmol/L (3.5-5.0); Total Bilirubin 0.8 mg/dL (0.2-1.0); Total Protein 8.4 g/dL (6.4-8.9)
[2021-08-28] MEDS ORDERED: Hyaluronidase HUMAN 15 UNIT in Sodium Chloride 0.9% 0.9 ML INTRADERM ONE (06:49)
[2021-08-28] MEDS ORDERED: Dexamethasone IV 4 MG/ML VIAL 1 ml VIAL IV SLOW PU ONE (08:23)
[2021-08-28] MEDS ORDERED: Pantoprazole VIAL 40 MG VIAL IV SCH (09:00)
[2021-08-28 10:36] LABS: Venous Bicarbonate HCO3 37.7 mmol/L (24-28)
[2021-08-28] MEDS: Sucralfate 1 gm SUSP 1 GM/10 ML UDC PO SCH ×2 (13:53→21:26)
[2021-08-28] MEDS ORDERED: Midazolam 10 mg/10 ml VIAL 1 mg/ml 10 ml VIAL (10 mg) ONE (15:52)
[2021-08-28] MEDS ORDERED: diPHENhydraMINE IV 50 MG/ML 1 ml VIAL (BENADRYL) ONE (15:52)
[2021-08-28] MEDS ORDERED: fentaNYL 100 mcg/2 ml 50 MCG/ML VIAL ONE (15:52)
[2021-08-28] MEDS: Pantoprazole VIAL 40 MG VIAL IV SCH (21:17)
[2021-08-29] MEDS: Sucralfate 1 gm SUSP 1 GM/10 ML UDC PO SCH ×5 (07:49→20:35)
[2021-08-29] MEDS: Pantoprazole VIAL 40 MG VIAL IV SCH ×2 (09:03→20:33)
[2021-08-29 09:13] LABS: ABS Lymphocytes 1.4 10^3/ul (1.0-4.8); ABS Monocytes 0.6 10^3/ul (0-0.8); ABS Neutrophils 6.8 10^3/ul (1.5-7.7); Eosinophil % 0.1 %; Hematocrit 33 % (42-52); Hemoglobin 11.1 g/dL (14.0-18.0); Mean Corpuscular HGB Conc 34 g/dL (31-36); Mean Corpuscular Hemoglobin 28 pg (27-31); Mean Corpuscular Volume 84 fL (80-94); Mean Platelet Volume 8.4 fL (7.4-10.4); Nucleated Red Blood Cells % 0.1; Platelet Count 208 10^3/uL (150-450); Red Blood Count 3.92 10^6 /uL (4.18-5.48); Red Cell Distribution Width 17 % (10-15); White Blood Count 8.8 10^3/uL (3.5-10.8)
[2021-08-29 09:31] LABS: Calcium 8.8 mg/dL (8.6-10.3); Magnesium 2.3 mg/dL (1.9-2.7); Potassium 3.2 mmol/L (3.5-5.0); eGFR CKD-EPI 101.2 (>60)
[2021-08-29] MEDS ORDERED: KCL 20 MEQ/100 ML IVPREMIX 20 MEQ/100 ML BAG IV ONE (10:01)
[2021-08-29] MEDS: HYDROmorphone 0.5 MG/0.5 ML SYRINGE IV PRN ×3 (12:18→21:03)
[2021-08-30] MEDS: HYDROmorphone 0.5 MG/0.5 ML SYRINGE IV PRN ×3 (05:43→13:56)
[2021-08-30 06:24] LABS: Hematocrit 33 % (42-52); Hemoglobin 10.9 g/dL (14.0-18.0); Mean Corpuscular HGB Conc 34 g/dL (31-36); Mean Corpuscular Hemoglobin 28 pg (27-31); Mean Corpuscular Volume 85 fL (80-94); Mean Platelet Volume 8.5 fL (7.4-10.4); Platelet Count 159 10^3/uL (150-450); Red Blood Count 3.84 10^6 /uL (4.18-5.48); Red Cell Distribution Width 16 % (10-15); White Blood Count 5.5 10^3/uL (3.5-10.8)
[2021-08-30 06:40] LABS: Calcium 9.1 mg/dL (8.6-10.3); Potassium 3.3 mmol/L (3.5-5.0); eGFR CKD-EPI 105.1 (>60)
[2021-08-30] MEDS ORDERED: Lactated Ringers 1000 ml BAG 1,000 ML IV ONE (08:14)
[2021-08-30] MEDS ORDERED: Potassium Chloride LIQUID 20 MEQ/15 ML LIQUID PO ONE (08:14)
[2021-08-30] MEDS: Sucralfate 1 gm SUSP 1 GM/10 ML UDC PO SCH ×2 (08:35→12:52)
[2021-08-30] MEDS: Pantoprazole VIAL 40 MG VIAL IV SCH (08:35)
[2021-08-30 14:20] VITALS: BP 101/56
[2021-08-30] MEDS ORDERED: Scopolamine PATCH Remove NOTE PATCH OFF SCH (22:00)
== END 2021-08-30 14:09 | disposition home or self-care (01) | DRG 243 ==
LOC: ED 19:07 → MEDTELE 08-28 00:02 → SUATTDRO 08-28 00:02 → MEDTELE 08-28 04:00
PROVIDERS: ADMIT Internal Medicine; ATTEND Internal Medicine

== ENCOUNTER 2021-09-23 14:37 | Observation (INO) ==
[2021-09-23] MEDS ORDERED: Morphine 4 MG/ML VIAL (1 ml) IV ONE (16:13)
[2021-09-23 16:48] LABS: ABS Basophils 0.1 10^3/ul (0-0.2); ABS Eosinophils 0.1 10^3/ul (0-0.6); ABS Lymphocytes 2.3 10^3/ul (1.0-4.8); ABS Monocytes 0.6 10^3/ul (0-0.8); Eosinophil % 0.9 %; Hematocrit 35 % (42-52); Hemoglobin 12.2 g/dL (14.0-18.0); Lymphocyte % 33.1 %; Mean Corpuscular HGB Conc 35 g/dL (31-36); Mean Corpuscular Hemoglobin 29 pg (27-31); Mean Corpuscular Volume 82 fL (80-94); Mean Platelet Volume 7.7 fL (7.4-10.4); Platelet Count 287 10^3/uL (150-450); Red Blood Count 4.22 10^6 /uL (4.18-5.48); Red Cell Distribution Width 17 % (10-15)
[2021-09-23 17:05] LABS: Albumin/Globulin Ratio 1.2 (1-3); Calcium 9.2 mg/dL (8.6-10.3); Globulin 3.3 g/dL (2-4); Magnesium 1.4 mg/dL (1.9-2.7); Total Bilirubin 0.5 mg/dL (0.2-1.0); Total Protein 7.3 g/dL (6.4-8.9); eGFR CKD-EPI 109.3 (>60)
[2021-09-23 17:15] LABS: Potassium 2.7 mmol/L (3.5-5.0)
[2021-09-23] MEDS ORDERED: NS 0.9% 1000 ml BAG 1,000 ML IV ONE (17:18)
[2021-09-23] MEDS ORDERED: Magnesium Sulfate 2 gm BAG 2 GM/50 ML BAG IVPB ONE ×2 (17:18→17:59)
[2021-09-23] MEDS ORDERED: Potassium Chlor 20 meq TAB.ER PO ONE (17:18)
[2021-09-23] MEDS ORDERED: KCL 10 MEQ/50 ML IVPREMIX 10 MEQ/50 ML BAG IV SCH (18:00)
[2021-09-23] MEDS: KCL 20 MEQ/100 ML IVPREMIX 20 MEQ/100 ML BAG IV SCH ×3 (18:19→23:14)
[2021-09-23] MEDS: Pantoprazole VIAL 40 MG VIAL IV SCH (22:41)
[2021-09-23] MEDS: Potassium Chloride IV 20 MEQ in Lactated Ringers 1000 ml BAG 1,000 ML IVPB SCH (22:41)
[2021-09-24] MEDS: Potassium Chloride IV 20 MEQ in Lactated Ringers 1000 ml BAG 1,000 ML IVPB SCH ×3 (03:34→23:29)
[2021-09-24 07:52] LABS: ABS Eosinophils 0.1 10^3/ul (0-0.6); ABS Lymphocytes 1.1 10^3/ul (1.0-4.8); ABS Monocytes 0.2 10^3/ul (0-0.8); ABS Neutrophils 5.4 10^3/ul (1.5-7.7); Eosinophil % 1.1 %; Hematocrit 34 % (42-52); Hemoglobin 11.6 g/dL (14.0-18.0); Lymphocyte % 16.3 %; Mean Corpuscular HGB Conc 35 g/dL (31-36); Mean Corpuscular Hemoglobin 29 pg (27-31); Mean Corpuscular Volume 83 fL (80-94); Mean Platelet Volume 7.4 fL (7.4-10.4); Platelet Count 235 10^3/uL (150-450); Red Blood Count 4.07 10^6 /uL (4.18-5.48); Red Cell Distribution Width 17 % (10-15); White Blood Count 6.9 10^3/uL (3.5-10.8)
[2021-09-24 08:14] LABS: Calcium 8.2 mg/dL (8.6-10.3); Potassium 3.5 mmol/L (3.5-5.0); eGFR CKD-EPI 115.2 (>60)
[2021-09-24] MEDS: Pantoprazole VIAL 40 MG VIAL IV SCH ×2 (08:27→19:24)
[2021-09-24] MEDS ORDERED: Ondansetron 4 mg VIAL 2 MG/ML 2 ml VIAL IV PRN (13:32)
[2021-09-24] MEDS ORDERED: Prochlorperazine 5 mg/ml 2 ml VIAL (10 mg) IV PRN (13:33)
[2021-09-24] MEDS: HYDROcodone/ACET. 7.5/325 LIQ 15 ML UDC PO PRN (21:07)
[2021-09-25] MEDS: Pantoprazole VIAL 40 MG VIAL IV SCH ×2 (08:04→20:29)
[2021-09-25] MEDS: Potassium Chloride IV 20 MEQ in Lactated Ringers 1000 ml BAG 1,000 ML IVPB SCH ×2 (09:32→20:29)
[2021-09-25] MEDS: HYDROcodone/ACET. 7.5/325 LIQ 15 ML UDC PO PRN ×3 (12:16→20:29)
[2021-09-26] MEDS: Potassium Chloride IV 20 MEQ in Lactated Ringers 1000 ml BAG 1,000 ML IVPB SCH (06:05)
[2021-09-26] MEDS: HYDROcodone/ACET. 7.5/325 LIQ 15 ML UDC PO PRN ×2 (06:05→10:44)
[2021-09-26] MEDS: Pantoprazole VIAL 40 MG VIAL IV SCH (08:07)
[2021-09-26 12:05] VITALS: BP 131/92
[2021-09-26 12:52] LABS: Calcium 8.4 mg/dL (8.6-10.3); Magnesium 1.1 mg/dL (1.9-2.7); Potassium 4.1 mmol/L (3.5-5.0); eGFR CKD-EPI 111.1 (>60)
== END 2021-09-26 12:35 | disposition home or self-care (01) ==
LOC: ED 14:37 → SSU 14:37 → ED 21:51 → OBSVTOIN 22:31 → INTOOBSV 09-24 13:35
PROVIDERS: ADMIT Emergency Medicine; ATTEND Surgery

== ENCOUNTER 2022-01-09 17:07 | Inpatient (IN) ==
[2022-01-10] MEDS ORDERED: Ondansetron 4 mg VIAL 2 MG/ML 2 ml VIAL IV ONE ×2 (00:43→02:12)
[2022-01-10] MEDS: Lactated Ringers 1000 ml BAG 1,000 ML IV SCH ×4 (00:52→21:25)
[2022-01-10] MEDS ORDERED: Iohexol 300 (CONTRAST) 10 ML SDV IV ONE (00:58)
[2022-01-10 01:06] LABS: ABS Basophils 0.1 10^3/ul (0-0.2); ABS Monocytes 1.1 10^3/ul (0-0.8); ABS Neutrophils 13.8 10^3/ul (1.5-7.7); Eosinophil % 0.1 %; Hematocrit 44 % (42-52); Hemoglobin 14.3 g/dL (14.0-18.0); Lymphocyte % 11.9 %; Mean Corpuscular HGB Conc 33 g/dL (31-36); Mean Corpuscular Hemoglobin 27 pg (27-31); Mean Corpuscular Volume 84 fL (80-94); Mean Platelet Volume 9.1 fL (7.4-10.4); Nucleated Red Blood Cells % 0.1; Platelet Count 174 10^3/uL (150-450); Red Blood Count 5.25 10^6 /uL (4.18-5.48); Red Cell Distribution Width 22 % (10-15)
[2022-01-10 01:32] LABS: ALT 110 U/L (7-52); Albumin 4.2 g/dL (3.2-5.2); Albumin/Globulin Ratio 1.1 (1-3); Alkaline Phosphatase 203 U/L (35-149); Blood Urea Nitrogen 12 mg/dL (6-24); C Reactive Protein 166.59 mg/L (<8.01); CO2 Carbon Dioxide 29 mmol/L (22-32); Calcium 9.3 mg/dL (8.6-10.3); Chloride 85 mmol/L (101-111); Glucose 89 mg/dL (70-100); Lipase 491 U/L (11.0-82.0); Sodium 130 mmol/L (135-145); Total Protein 8.2 g/dL (6.4-8.9); eGFR CKD-EPI 113.5 (>60)
[2022-01-10 01:36] LABS: Anion Gap 16 mmol/L (2-11)
[2022-01-10] MEDS ORDERED: Morphine 4 MG/ML VIAL (1 ml) IV ONE (02:12)
[2022-01-10 04:42] LABS: Magnesium 1.2 mg/dL (1.9-2.7); Triglycerides 125 mg/dL
[2022-01-10 04:54] LABS: Potassium Redraw 3.5 mmol/L (3.5-5.0)
[2022-01-10 04:55] LABS: Alcohol, S < 13 mg/dL (<13)
[2022-01-10] MEDS ORDERED: Lactated Ringers 1000 ml BAG 1,000 ML IV SCH ×2 (05:00→05:14)
[2022-01-10] MEDS ORDERED: Magnesium Sulf 4 GM/100 ML IV 4,000 MG/100 ML BAG IVPB ONE (05:13)
[2022-01-10] MEDS: Morphine 2 MG/ML SYRINGE IV PRN ×3 (05:13→10:33)
[2022-01-10 05:15] LABS: Direct Bilirubin 0.8 mg/dL (0.03-0.18)
[2022-01-10] MEDS: KCL 20 MEQ/100 ML IVPREMIX 20 MEQ/100 ML BAG IV SCH ×2 (07:53→10:24)
[2022-01-10 08:01] LABS: Urine Appearance Clear; Urine Bilirubin Negative (Negative); Urine Blood Negative (Negative); Urine Color Yellow; Urine Glucose Negative (Negative); Urine Ketones Trace (Negative); Urine Nitrite Negative (Negative); Urine Protein Negative (Negative); Urine Urobilinogen Negative (Negative)
[2022-01-10 08:08] LABS: Urine Specific Gravity > 1.060 (1.002-1.030)
[2022-01-10] MEDS: Enoxaparin 40 MG/0.4 ML SYR SUBCUT SCH (08:29)
[2022-01-10] MEDS: HYDROmorphone 0.5 MG/0.5 ML SYRINGE IV PRN ×3 (13:22→20:56)
[2022-01-10] MEDS ORDERED: Morphine 2 MG/ML SYRINGE IV PRN (14:14)
[2022-01-10 17:15] LABS: TSH Ultra Thyroid Stim Horm 0.98 mcIU/mL (0.34-5.60)
[2022-01-11] MEDS: Lactated Ringers 1000 ml BAG 1,000 ML IV SCH ×3 (02:09→17:58)
[2022-01-11] MEDS: HYDROmorphone 0.5 MG/0.5 ML SYRINGE IV PRN ×2 (02:10→06:20)
[2022-01-11 05:44] LABS: ABS Lymphocytes 1.6 10^3/ul (1.0-4.8); ABS Monocytes 0.9 10^3/ul (0-0.8); ABS Neutrophils 5.4 10^3/ul (1.5-7.7); Eosinophil % 0.6 %; Hematocrit 37 % (42-52); Lymphocyte % 20.2 %; Mean Corpuscular HGB Conc 33 g/dL (31-36); Mean Corpuscular Hemoglobin 28 pg (27-31); Mean Corpuscular Volume 84 fL (80-94); Mean Platelet Volume 8.5 fL (7.4-10.4); Platelet Count 151 10^3/uL (150-450); Red Blood Count 4.36 10^6 /uL (4.18-5.48); Red Cell Distribution Width 22 % (10-15)
[2022-01-11 06:06] LABS: Globulin 2.9 g/dL (2-4); Magnesium 1.5 mg/dL (1.9-2.7); Potassium 3.8 mmol/L (3.5-5.0); Total Bilirubin 1.3 mg/dL (0.2-1.0); Total Protein 5.9 g/dL (6.4-8.9); eGFR CKD-EPI 113.9 (>60)
[2022-01-11] MEDS ORDERED: Magnesium Sulfate IV 3 GM in NS 0.9% 100 ml BAG 100 ML IVPB ONE (06:41)
[2022-01-11] MEDS ORDERED: Magnesium Sulfate 2 GM IV (Premix) IVPB ONE (07:00)
[2022-01-11] MEDS ORDERED: Magnesium Sulfate 1 GM IV 1 GM/100 ML BAG IV ONE (08:30)
[2022-01-11] MEDS: Enoxaparin 40 MG/0.4 ML SYR SUBCUT SCH (11:23)
[2022-01-11] MEDS: Morphine 2 MG/ML SYRINGE IV PRN ×3 (11:23→20:07)
[2022-01-12] MEDS: Morphine 2 MG/ML SYRINGE IV PRN ×2 (02:58→09:49)
[2022-01-12] MEDS: Lactated Ringers 1000 ml BAG 1,000 ML IV SCH ×4 (02:58→22:16)
[2022-01-12 06:40] LABS: Hematocrit 38 % (42-52); Hemoglobin 12.1 g/dL (14.0-18.0); Mean Corpuscular HGB Conc 32 g/dL (31-36); Mean Corpuscular Hemoglobin 27 pg (27-31); Mean Corpuscular Volume 85 fL (80-94); Platelet Count 197 10^3/uL (150-450); Red Blood Count 4.46 10^6 /uL (4.18-5.48); Red Cell Distribution Width 22 % (10-15)
[2022-01-12 06:41] LABS: ABS Lymphocytes 1.2 10^3/ul (1.0-4.8); ABS Monocytes 0.9 10^3/ul (0-0.8); ABS Neutrophils 3.8 10^3/ul (1.5-7.7); Eosinophil % 0.8 %; Lymphocyte % 19.9 %
[2022-01-12 07:22] LABS: Albumin 2.9 g/dL (3.2-5.2); Albumin/Globulin Ratio 0.9 (1-3); Calcium 8.3 mg/dL (8.6-10.3); Globulin 3.1 g/dL (2-4); Potassium 3.8 mmol/L (3.5-5.0); Total Bilirubin 0.8 mg/dL (0.2-1.0); eGFR CKD-EPI 116.1 (>60)
[2022-01-12] MEDS: Enoxaparin 40 MG/0.4 ML SYR SUBCUT SCH (09:48)
[2022-01-12 11:06] LABS: Magnesium 1.4 mg/dL (1.9-2.7)
[2022-01-12] MEDS: HYDROmorphone 0.5 MG/0.5 ML SYRINGE IV SLOW PU PRN ×3 (13:09→22:13)
[2022-01-13] MEDS: Lactated Ringers 1000 ml BAG 1,000 ML IV SCH ×3 (03:59→22:52)
[2022-01-13] MEDS: HYDROmorphone 0.5 MG/0.5 ML SYRINGE IV SLOW PU PRN ×2 (03:59→09:46)
[2022-01-13 08:30] LABS: Albumin 3.3 g/dL (3.2-5.2); Albumin/Globulin Ratio 0.9 (1-3); Calcium 9.1 mg/dL (8.6-10.3); Globulin 3.7 g/dL (2-4); Magnesium 1.3 mg/dL (1.9-2.7); Potassium 4.2 mmol/L (3.5-5.0); Total Bilirubin 0.7 mg/dL (0.2-1.0)
[2022-01-13] MEDS: Enoxaparin 40 MG/0.4 ML SYR SUBCUT SCH (09:25)
[2022-01-13] MEDS ORDERED: Magnesium Sulf 4 GM/100 ML IV 4,000 MG/100 ML BAG IVPB ONE (10:00)
[2022-01-13] MEDS ORDERED: HYDROmorphone 0.5 MG/0.5 ML SYRINGE IV PRN (17:25)
[2022-01-13] MEDS: Ondansetron 4 mg VIAL 2 MG/ML 2 ml VIAL IV PRN (17:31)
[2022-01-13] MEDS: HYDROmorphone 0.5 MG/0.5 ML SYRINGE IV PRN (21:57)
[2022-01-14] MEDS: Ondansetron 4 mg VIAL 2 MG/ML 2 ml VIAL IV PRN ×2 (03:00→07:56)
[2022-01-14] MEDS: HYDROmorphone 0.5 MG/0.5 ML SYRINGE IV PRN ×4 (03:00→16:56)
[2022-01-14] MEDS: Enoxaparin 40 MG/0.4 ML SYR SUBCUT SCH (08:32)
[2022-01-14 08:52] LABS: Hematocrit 36 % (42-52); Hemoglobin 11.9 g/dL (14.0-18.0); Mean Corpuscular HGB Conc 33 g/dL (31-36); Mean Corpuscular Hemoglobin 28 pg (27-31); Mean Corpuscular Volume 83 fL (80-94); Mean Platelet Volume 8.3 fL (7.4-10.4); Platelet Count 303 10^3/uL (150-450); Red Blood Count 4.27 10^6 /uL (4.18-5.48); Red Cell Distribution Width 22 % (10-15); White Blood Count 7.3 10^3/uL (3.5-10.8)
[2022-01-14 09:24] LABS: Albumin 3.3 g/dL (3.2-5.2); Albumin/Globulin Ratio 0.9 (1-3); Calcium 8.6 mg/dL (8.6-10.3); Direct Bilirubin 0.2 mg/dL (0.03-0.18); Globulin 3.6 g/dL (2-4); Indirect Bilirubin 0.6 mg/dL (0.3-1.0); Magnesium 1.4 mg/dL (1.9-2.7); Potassium 3.9 mmol/L (3.5-5.0); Total Bilirubin 0.8 mg/dL (0.2-1.0); Total Protein 6.9 g/dL (6.4-8.9); eGFR CKD-EPI 114.7 (>60)
[2022-01-14] MEDS: Lactated Ringers 1000 ml BAG 1,000 ML IV SCH (10:18)
[2022-01-14] MEDS ORDERED: Magnesium Sulf 4 GM/100 ML IV 4,000 MG/100 ML BAG IVPB ONE (10:57)
[2022-01-14] MEDS ORDERED: Lactated Ringers 1000 ml BAG 1,000 ML IV SCH (10:57)
[2022-01-15 06:26] LABS: Hematocrit 36 % (42-52); Hemoglobin 11.9 g/dL (14.0-18.0); Mean Corpuscular HGB Conc 33 g/dL (31-36); Mean Corpuscular Hemoglobin 27 pg (27-31); Mean Corpuscular Volume 84 fL (80-94); Mean Platelet Volume 8.2 fL (7.4-10.4); Platelet Count 358 10^3/uL (150-450); Red Blood Count 4.36 10^6 /uL (4.18-5.48); Red Cell Distribution Width 21 % (10-15); White Blood Count 8.7 10^3/uL (3.5-10.8)
[2022-01-15 07:37] LABS: Calcium 9.1 mg/dL (8.6-10.3); Magnesium 1.7 mg/dL (1.9-2.7); Potassium 4.4 mmol/L (3.5-5.0); eGFR CKD-EPI 113.1 (>60)
[2022-01-15 08:43] LABS: ABS Eosinophils 0.1 10^3/ul (0-0.6); ABS Lymphocytes 1.5 10^3/ul (1.0-4.8); ABS Monocytes 1.6 10^3/ul (0-0.8); ABS Neutrophils 5.4 10^3/ul (1.5-7.7); Lymphocyte % 16.8 %
[2022-01-15] MEDS: Enoxaparin 40 MG/0.4 ML SYR SUBCUT SCH (08:48)
[2022-01-15] MEDS ORDERED: Dextran 70/Hypromellose Tears Eye Drops 15 ml BTL (for Artificials Tears) RIGHT EYE PRN (11:24)
[2022-01-15 15:30] VITALS: BP 135/84
== END 2022-01-15 16:37 | disposition home or self-care (01) | DRG 282 ==
LOC: ED 17:07 → SUATTDRO 01-10 05:49 → EDHOLD 01-10 05:49 → MED 01-10 15:55
PROVIDERS: ADMIT Internal Medicine; ATTEND Internal Medicine

== ENCOUNTER 2022-08-25 14:12 | Inpatient (IN) ==
[2022-08-25] MEDS ORDERED: Lactated Ringers 1000 ml BAG 1,000 ML IV ONE (14:45)
[2022-08-25] MEDS ORDERED: Ondansetron 4 mg VIAL 2 MG/ML 2 ml VIAL IV ONE ×2 (14:45→18:02)
[2022-08-25] MEDS ORDERED: Morphine 4 MG/ML VIAL (1 ml) IV ONE ×2 (15:49→18:02)
[2022-08-25 16:23] LABS: ABS Basophils 0.1 10^3/ul (0-0.2); ABS Lymphocytes 1.2 10^3/ul (1.0-4.8); ABS Monocytes 0.8 10^3/ul (0-0.8); ABS Neutrophils 17.1 10^3/ul (1.5-7.7); Hematocrit 51 % (42-52); Hemoglobin 17.4 g/dL (14.0-18.0); Lymphocyte % 6.1 %; Mean Corpuscular HGB Conc 35 g/dL (31-36); Mean Corpuscular Hemoglobin 34 pg (27-31); Mean Corpuscular Volume 97 fL (80-94); Mean Platelet Volume 8.4 fL (7.4-10.4); Platelet Count 221 10^3/uL (150-450); Red Blood Count 5.18 10^6 /uL (4.18-5.48); Red Cell Distribution Width 15 % (10-15); White Blood Count 19.1 10^3/uL (3.5-10.8)
[2022-08-25 17:32] LABS: ALT 101 U/L (7-52); Albumin 4.5 g/dL (3.2-5.2); Albumin/Globulin Ratio 1.2 (1-3); Alkaline Phosphatase 172 U/L (35-149); Blood Urea Nitrogen 8 mg/dL (6-24); C Reactive Protein 14.56 mg/L (<8.01); CO2 Carbon Dioxide 17 mmol/L (22-32); Calcium 9.1 mg/dL (8.6-10.3); Chloride 82 mmol/L (101-111); Globulin 3.8 g/dL (2-4); Glucose 66 mg/dL (70-100); Lipase 169 U/L (11.0-82.0); Sodium 138 mmol/L (135-145); Total Protein 8.3 g/dL (6.4-8.9); eGFR CKD-EPI 103.1 (>60)
[2022-08-25 17:38] LABS: Anion Gap 39 mmol/L (2-11)
[2022-08-25] MEDS ORDERED: Iohexol 350 (CONTRAST) 500 ML MDV IV ONE (17:39)
[2022-08-25] MEDS: Benzocaine/Menthol LOZ PO PRN ×2 (18:27→20:44)
[2022-08-25] MEDS ORDERED: Droperidol 5 MG/2 ML 2 ML VIAL IV ONE (19:23)
[2022-08-25] MEDS ORDERED: NS 0.9% 1000 ml BAG 1,000 ML IV SCH (20:30)
[2022-08-25] MEDS: Ondansetron 4 mg VIAL 2 MG/ML 2 ml VIAL IV PRN (20:41)
[2022-08-25 21:33] LABS: Potassium Redraw 3.3 mmol/L (3.5-5.0)
[2022-08-25 21:44] LABS: Magnesium 0.9 mg/dL (1.9-2.7)
[2022-08-25] MEDS ORDERED: Potassium Chlor 20 meq TAB.ER PO ONE (21:49)
[2022-08-25] MEDS ORDERED: Magnesium Sulf 4 GM/100 ML IV 4,000 MG/100 ML BAG IVPB ONE (21:49)
[2022-08-25] MEDS ORDERED: Magic MouthWash1-BEN/MAAL/LIDO 180 ML BTL SWISH SWAL SCH (22:00)
[2022-08-25 22:49] LABS: Direct Bilirubin 0.6 mg/dL (0.03-0.18); Total Bilirubin 1.6 mg/dL (0.2-1.0)
[2022-08-25] MEDS: Magic MouthWash1-BEN/MAAL/LIDO 180 ML BTL SWISH SPIT SCH (23:13)
[2022-08-25] MEDS ORDERED: Lactated Ringers 1000 ml BAG 1,000 ML IV SCH (23:45)
[2022-08-26] MEDS ORDERED: Lactated Ringers 1000 ml BAG 1,000 ML IV ONE (00:57)
[2022-08-26] MEDS: Scopolamine 1 mg/72hr PATCH TRANSDERM SCH (01:15)
[2022-08-26] MEDS: KCL 20 MEQ/100 ML IVPREMIX 20 MEQ/100 ML BAG IV SCH ×2 (01:27→04:09)
[2022-08-26] MEDS: Pantoprazole VIAL 40 MG VIAL IV SCH ×2 (01:30→12:35)
[2022-08-26 01:48] LABS: Urine Appearance Clear; Urine Bilirubin Negative (Negative); Urine Blood Negative (Negative); Urine Color Yellow; Urine Glucose Negative (Negative); Urine Ketones 4+ (>=160mg/dL) (Negative); Urine Nitrite Negative (Negative); Urine Protein Negative (Negative); Urine Specific Gravity 1.025 (1.005-1.030); Urine Urobilinogen 0.2 (Negative) (Negative); Urine pH 5.5 (5.0-9.0)
[2022-08-26] MEDS: Ondansetron 4 mg VIAL 2 MG/ML 2 ml VIAL IV PRN ×5 (03:12→22:14)
[2022-08-26] MEDS ORDERED: HYDROmorphone 0.5 MG/0.5 ML SYRINGE IV SLOW PU PRN ×2 (05:16→08:45)
[2022-08-26 05:40] LABS: ABS Basophils 0.1 10^3/ul (0-0.2); ABS Lymphocytes 1.4 10^3/ul (1.0-4.8); ABS Monocytes 0.8 10^3/ul (0-0.8); ABS Neutrophils 12.2 10^3/ul (1.5-7.7); Eosinophil % 0.3 %; Hematocrit 44 % (42-52); Hemoglobin 15.5 g/dL (14.0-18.0); Lymphocyte % 9.6 %; Mean Corpuscular HGB Conc 35 g/dL (31-36); Mean Corpuscular Hemoglobin 34 pg (27-31); Mean Corpuscular Volume 96 fL (80-94); Mean Platelet Volume 8.3 fL (7.4-10.4); Platelet Count 162 10^3/uL (150-450); Red Blood Count 4.59 10^6 /uL (4.18-5.48); Red Cell Distribution Width 16 % (10-15); White Blood Count 14.4 10^3/uL (3.5-10.8)
[2022-08-26 06:23] LABS: Albumin 3.8 g/dL (3.2-5.2); Calcium 8.4 mg/dL (8.6-10.3); Magnesium 2.2 mg/dL (1.9-2.7); Potassium 3.8 mmol/L (3.5-5.0); Total Bilirubin 1.4 mg/dL (0.2-1.0)
[2022-08-26 06:29] LABS: Albumin/Globulin Ratio 1.2 (1-3); Globulin 3.2 g/dL (2-4); eGFR CKD-EPI 103.1 (>60)
[2022-08-26] MEDS: Magic MouthWash1-BEN/MAAL/LIDO 180 ML BTL SWISH SPIT SCH ×4 (07:12→22:17)
[2022-08-26] MEDS: Lactated Ringers 1000 ml BAG 1,000 ML IV SCH ×2 (09:29→22:21)
[2022-08-26 09:48] LABS: Folate 6.18 ng/mL (5.90-24.80)
[2022-08-26] MEDS ORDERED: Potassium Chlor 20 meq TAB.ER PO ONE (16:04)
[2022-08-26] MEDS ORDERED: Potassium Chloride LIQUID 20 MEQ/15 ML LIQUID PO ONE (17:00)
[2022-08-27] MEDS: Ondansetron 4 mg VIAL 2 MG/ML 2 ml VIAL IV PRN ×4 (02:53→17:59)
[2022-08-27] MEDS: Lactated Ringers 1000 ml BAG 1,000 ML IV SCH ×5 (04:17→23:55)
[2022-08-27 05:55] LABS: ABS Lymphocytes 1.4 10^3/ul (1.0-4.8); ABS Monocytes 0.5 10^3/ul (0-0.8); ABS Neutrophils 7.2 10^3/ul (1.5-7.7); Eosinophil % 0.1 %; Hematocrit 43 % (42-52); Hemoglobin 14.8 g/dL (14.0-18.0); Lymphocyte % 15.7 %; Mean Corpuscular HGB Conc 34 g/dL (31-36); Mean Corpuscular Hemoglobin 33 pg (27-31); Mean Corpuscular Volume 97 fL (80-94); Mean Platelet Volume 9.1 fL (7.4-10.4); Platelet Count 128 10^3/uL (150-450); Red Blood Count 4.44 10^6 /uL (4.18-5.48); Red Cell Distribution Width 15 % (10-15); White Blood Count 9.2 10^3/uL (3.5-10.8)
[2022-08-27 06:14] LABS: Calcium 8.4 mg/dL (8.6-10.3); Potassium 3.8 mmol/L (3.5-5.0); eGFR CKD-EPI 111.2 (>60)
[2022-08-27 08:28] LABS: Magnesium 1.5 mg/dL (1.9-2.7)
[2022-08-27] MEDS ORDERED: Magnesium Sulf 4 GM/100 ML IV 4,000 MG/100 ML BAG IVPB ONE (08:31)
[2022-08-27 10:13] LABS: Albumin 3.4 g/dL (3.2-5.2); Direct Bilirubin 0.9 mg/dL (0.03-0.18); Indirect Bilirubin 0.9 mg/dL (0.3-1.0); Total Bilirubin 1.8 mg/dL (0.2-1.0)
[2022-08-27 10:18] LABS: Albumin/Globulin Ratio 1.1 (1-3); Globulin 3.1 g/dL (2-4); Total Protein 6.5 g/dL (6.4-8.9)
[2022-08-27] MEDS: Magic MouthWash1-BEN/MAAL/LIDO 180 ML BTL SWISH SPIT SCH ×4 (10:25→22:39)
[2022-08-27] MEDS: Pantoprazole VIAL 40 MG VIAL IV SCH (10:26)
[2022-08-27] MEDS: Sucralfate 1 gm SUSP 1 GM/10 ML UDC PO SCH ×2 (14:17→22:37)
[2022-08-27] MEDS: Enoxaparin 40 MG/0.4 ML SYR SUBCUT SCH (15:42)
[2022-08-27 19:59] LABS: ABS Lymphocytes 1.5 10^3/ul (1.0-4.8); ABS Monocytes 0.6 10^3/ul (0-0.8); Eosinophil % 0.5 %; Hematocrit 42 % (42-52); Hemoglobin 14.6 g/dL (14.0-18.0); Lymphocyte % 16.2 %; Mean Corpuscular HGB Conc 35 g/dL (31-36); Mean Corpuscular Hemoglobin 33 pg (27-31); Mean Corpuscular Volume 97 fL (80-94); Mean Platelet Volume 8.8 fL (7.4-10.4); Platelet Count 139 10^3/uL (150-450); Red Blood Count 4.37 10^6 /uL (4.18-5.48); Red Cell Distribution Width 16 % (10-15); White Blood Count 9.1 10^3/uL (3.5-10.8)
[2022-08-27] MEDS ORDERED: LORazepam 2 mg VIAL 1 ml IV PUSH SCH (20:00)
[2022-08-27] MEDS ORDERED: Lorazepam PYXIS KEY PRN (20:03)
[2022-08-27] MEDS ORDERED: Thiamine 100 MG/ML 2 ml VIAL (200 mg) IM ONE (20:32)
[2022-08-27 20:41] LABS: ALT 69 U/L (7-52); AST 126 U/L (13-39); Albumin 3.6 g/dL (3.2-5.2); Albumin/Globulin Ratio 1.2 (1-3); Alcohol, S < 13 mg/dL (<13); Alkaline Phosphatase 171 U/L (35-149); Anion Gap 19 mmol/L (2-11); Blood Urea Nitrogen 11 mg/dL (6-24); CO2 Carbon Dioxide 26 mmol/L (22-32); Calcium 8.7 mg/dL (8.6-10.3); Chloride 90 mmol/L (101-111); Globulin 3.1 g/dL (2-4); Glucose 77 mg/dL (70-100); Potassium 3.6 mmol/L (3.5-5.0); Sodium 135 mmol/L (135-145); Total Protein 6.7 g/dL (6.4-8.9); eGFR CKD-EPI 111.6 (>60)
[2022-08-27] MEDS ORDERED: Multivitamins/Minerals TAB PO SCH (21:00)
[2022-08-27] MEDS: Benzocaine/Menthol LOZ MT PRN (23:20)
[2022-08-28] MEDS: Lactated Ringers 1000 ml BAG 1,000 ML IV SCH ×4 (04:30→20:42)
[2022-08-28 04:56] LABS: Urine Benzodiazepine Screen None Detected (None Detect); Urine Cannabinoids Screen None Detected (None Detect); Urine Opiates Screen Presumptive Positive (None Detect)
[2022-08-28 05:56] LABS: ABS Lymphocytes 1.6 10^3/ul (1.0-4.8); ABS Monocytes 0.3 10^3/ul (0-0.8); ABS Neutrophils 3.1 10^3/ul (1.5-7.7); Hematocrit 40 % (42-52); Hemoglobin 14.2 g/dL (14.0-18.0); Lymphocyte % 31.7 %; Mean Corpuscular HGB Conc 35 g/dL (31-36); Mean Corpuscular Hemoglobin 34 pg (27-31); Mean Corpuscular Volume 97 fL (80-94); Nucleated Red Blood Cells % 0.2; Platelet Count 100 10^3/uL (150-450); Red Blood Count 4.15 10^6 /uL (4.18-5.48); Red Cell Distribution Width 15 % (10-15); White Blood Count 5.2 10^3/uL (3.5-10.8)
[2022-08-28 06:01] LABS: INR 1.33 (0.88-1.18)
[2022-08-28 06:33] LABS: Calcium 8.3 mg/dL (8.6-10.3); Magnesium 1.4 mg/dL (1.9-2.7); Potassium 3.2 mmol/L (3.5-5.0); eGFR CKD-EPI 115.3 (>60)
[2022-08-28] MEDS ORDERED: Magnesium Sulf 4 GM/100 ML IV 4,000 MG/100 ML BAG IVPB ONE (08:00)
[2022-08-28] MEDS: KCL 20 MEQ/100 ML IVPREMIX 20 MEQ/100 ML BAG IV SCH ×2 (08:20→15:13)
[2022-08-28] MEDS: Pantoprazole VIAL 40 MG VIAL IV SCH ×2 (08:21→20:45)
[2022-08-28] MEDS ORDERED: Dextrose 50% Syringe 50 ml 25 GM/50 ML SYRINGE IV PUSH PRN (08:42)
[2022-08-28] MEDS: Magic MouthWash1-BEN/MAAL/LIDO 180 ML BTL SWISH SPIT SCH ×5 (09:00→22:32)
[2022-08-28] MEDS: Ondansetron 4 mg VIAL 2 MG/ML 2 ml VIAL IV PRN ×4 (09:19→22:34)
[2022-08-28 10:07] LABS: Direct Bilirubin 0.5 mg/dL (0.03-0.18); Indirect Bilirubin 0.7 mg/dL (0.3-1.0); Total Bilirubin 1.2 mg/dL (0.2-1.0)
[2022-08-28] MEDS: Sucralfate 1 gm SUSP 1 GM/10 ML UDC PO SCH ×3 (10:25→20:45)
[2022-08-28] MEDS ORDERED: Thiamine 100 MG/ML 2 ml VIAL (200 mg) IV SCH (14:00)
[2022-08-28] MEDS: Thiamine 100 MG/ML 2 ml VIAL 200 MG in NS 0.9% 100 ml BAG 100 ML IV SCH ×2 (14:21→20:44)
[2022-08-28] MEDS: Enoxaparin 40 MG/0.4 ML SYR SUBCUT SCH (18:04)
[2022-08-28] MEDS: Benzocaine/Menthol LOZ MT PRN (20:54)
[2022-08-28] MEDS: Scopolamine 1 mg/72hr PATCH TRANSDERM SCH (22:33)
[2022-08-29] MEDS: Lactated Ringers 1000 ml BAG 1,000 ML IV SCH (03:30)
[2022-08-29] MEDS: Ondansetron 4 mg VIAL 2 MG/ML 2 ml VIAL IV PRN ×3 (05:13→20:32)
[2022-08-29 06:21] LABS: Hematocrit 38 % (42-52); Hemoglobin 13.7 g/dL (14.0-18.0); Mean Corpuscular HGB Conc 36 g/dL (31-36); Mean Corpuscular Hemoglobin 34 pg (27-31); Mean Corpuscular Volume 96 fL (80-94); Red Cell Distribution Width 15 % (10-15); White Blood Count 5.4 10^3/uL (3.5-10.8)
[2022-08-29 06:22] LABS: ABS Eosinophils 0.1 10^3/ul (0-0.6); ABS Lymphocytes 1.1 10^3/ul (1.0-4.8); ABS Monocytes 0.5 10^3/ul (0-0.8); ABS Neutrophils 3.6 10^3/ul (1.5-7.7); Eosinophil % 1.2 %; Lymphocyte % 20.4 %; Nucleated Red Blood Cells % 0.1
[2022-08-29 06:26] LABS: Albumin 3.1 g/dL (3.2-5.2); Albumin/Globulin Ratio 1.1 (1-3); Globulin 2.7 g/dL (2-4); Total Bilirubin 1.2 mg/dL (0.2-1.0); Total Protein 5.8 g/dL (6.4-8.9); eGFR CKD-EPI 120.3 (>60)
[2022-08-29 08:08] LABS: Platelet Count 94 10^3/uL (150-450)
[2022-08-29 08:13] LABS: Magnesium 1.1 mg/dL (1.9-2.7)
[2022-08-29] MEDS: KCL 20 MEQ/100 ML IVPREMIX 20 MEQ/100 ML BAG IV SCH ×2 (08:49→10:00)
[2022-08-29] MEDS ORDERED: Magnesium Sulf 4 GM/100 ML IV 4,000 MG/100 ML BAG IVPB ONE (09:04)
[2022-08-29] MEDS ORDERED: Lactated Ringers 1000 ml BAG 1,000 ML IV SCH (09:18)
[2022-08-29 09:51] LABS: Phosphorus 1.6 mg/dL (2.5-5.0)
[2022-08-29] MEDS: Magic MouthWash1-BEN/MAAL/LIDO 180 ML BTL SWISH SPIT SCH ×4 (09:53→20:48)
[2022-08-29] MEDS: Sucralfate 1 gm SUSP 1 GM/10 ML UDC PO SCH ×3 (09:54→20:45)
[2022-08-29 10:00] LABS: C Reactive Protein 65.45 mg/L (<8.01)
[2022-08-29] MEDS: Thiamine 100 MG/ML 2 ml VIAL 200 MG in NS 0.9% 100 ml BAG 100 ML IV SCH ×2 (11:15→20:24)
[2022-08-29 11:47] LABS: Erythrocyte Sed Rate 31 mm/Hr (0-14)
[2022-08-29] MEDS ORDERED: Potassium Chloride IV 40 MEQ in Lactated Ringers 1000 ml BAG 1,000 ML IVPB SCH (12:00)
[2022-08-29] MEDS: Pantoprazole VIAL 40 MG VIAL IV SCH ×2 (12:23→20:38)
[2022-08-29] MEDS ORDERED: Midazolam 10 mg/10 ml VIAL 1 mg/ml 10 ml VIAL (10 mg) ONE (15:24)
[2022-08-29] MEDS ORDERED: fentaNYL 100 mcg/2 ml 50 MCG/ML VIAL ONE (15:24)
[2022-08-29] MEDS ORDERED: Midazolam 5 mg/5 ml VIAL 1 mg/ml 5 ml VIAL (5 mg) ONE (15:24)
[2022-08-29] MEDS ORDERED: Vancomycin per Pharmacy 1 EA NOTE FOLLOW UP SCH (18:00)
[2022-08-29] MEDS ORDERED: Potassium Phosphate IV 15 MMOLE in NS 0.9% 250 ml 250 ML IVPB ONE (18:23)
[2022-08-29] MEDS ORDERED: Potassium Chloride IV 40 MEQ in Lactated Ringers 1000 ml BAG 1,000 ML IVPB ONE (18:27)
[2022-08-29] MEDS: Enoxaparin 40 MG/0.4 ML SYR SUBCUT SCH (18:28)
[2022-08-29] MEDS: cefTRIAXone 1 gm/50 mL D5W 1 GM/50 ML BAG IV SCH (18:29)
[2022-08-29] MEDS: Vancomycin 1000 MG in NS 0.9% 250 ML IVPB SCH (19:03)
[2022-08-29 19:34] LABS: Magnesium 1.8 mg/dL (1.9-2.7); Potassium 3.5 mmol/L (3.5-5.0); eGFR CKD-EPI 119.2 (>60)
[2022-08-30] MEDS: Ondansetron 4 mg VIAL 2 MG/ML 2 ml VIAL IV PRN ×6 (01:07→22:36)
[2022-08-30] MEDS: Vancomycin 1000 MG in NS 0.9% 250 ML IVPB SCH ×3 (02:20→18:01)
[2022-08-30] MEDS: Thiamine 100 MG/ML 2 ml VIAL 200 MG in NS 0.9% 100 ml BAG 100 ML IV SCH ×3 (04:34→21:41)
[2022-08-30] MEDS: Potassium Chloride IV 20 MEQ in Lactated Ringers 1000 ml BAG 1,000 ML IVPB SCH ×2 (07:50→18:01)
[2022-08-30 08:09] LABS: ABS Eosinophils 0.1 10^3/ul (0-0.6); ABS Lymphocytes 1.3 10^3/ul (1.0-4.8); ABS Neutrophils 2.6 10^3/ul (1.5-7.7); Eosinophil % 2.1 %; Hematocrit 43 % (42-52); Hemoglobin 14.6 g/dL (14.0-18.0); Mean Corpuscular HGB Conc 34 g/dL (31-36); Mean Corpuscular Hemoglobin 34 pg (27-31); Mean Corpuscular Volume 99 fL (80-94); Mean Platelet Volume 9.4 fL (7.4-10.4); Nucleated Red Blood Cells % 0.1; Platelet Count 130 10^3/uL (150-450); Red Blood Count 4.32 10^6 /uL (4.18-5.48); Red Cell Distribution Width 15 % (10-15)
[2022-08-30 08:51] LABS: Calcium 8.1 mg/dL (8.6-10.3); Phosphorus 2.4 mg/dL (2.5-5.0); Potassium 3.9 mmol/L (3.5-5.0)
[2022-08-30] MEDS: Magic MouthWash1-BEN/MAAL/LIDO 180 ML BTL SWISH SPIT SCH ×4 (09:08→21:42)
[2022-08-30] MEDS: Sucralfate 1 gm SUSP 1 GM/10 ML UDC PO SCH ×3 (09:08→21:43)
[2022-08-30] MEDS: Pantoprazole VIAL 40 MG VIAL IV SCH ×2 (09:08→21:43)
[2022-08-30 12:01] LABS: Albumin 3.4 g/dL (3.2-5.2); Albumin/Globulin Ratio 1.1 (1-3); Direct Bilirubin 0.6 mg/dL (0.03-0.18); Globulin 3.2 g/dL (2-4); Indirect Bilirubin 0.7 mg/dL (0.3-1.0); Magnesium 1.3 mg/dL (1.9-2.7); Total Bilirubin 1.3 mg/dL (0.2-1.0); Total Protein 6.6 g/dL (6.4-8.9)
[2022-08-30] MEDS ORDERED: Magnesium Sulf 4 GM/100 ML IV 4,000 MG/100 ML BAG IVPB ONE (12:04)
[2022-08-30] MEDS ORDERED: Potassium Phosphate IV 15 MMOLE in NS 0.9% 250 ml 250 ML IVPB ONE (13:00)
[2022-08-30] MEDS: cefTRIAXone 1 gm/50 mL D5W 1 GM/50 ML BAG IV SCH (16:26)
[2022-08-30] MEDS: Enoxaparin 40 MG/0.4 ML SYR SUBCUT SCH (16:26)
[2022-08-30] MEDS ORDERED: Vancomycin Trough Check NOTE FOLLOW UP ONE (17:30)
[2022-08-31] MEDS: Ondansetron 4 mg VIAL 2 MG/ML 2 ml VIAL IV PRN ×5 (02:30→21:41)
[2022-08-31] MEDS: Vancomycin 1,250 MG in NS 0.9% 250 ml 250 ML IVPB SCH ×3 (02:31→18:47)
[2022-08-31] MEDS: Thiamine 100 MG/ML 2 ml VIAL 200 MG in NS 0.9% 100 ml BAG 100 ML IV SCH ×2 (06:01→13:18)
[2022-08-31 06:29] LABS: eGFR CKD-EPI 120.8 (>60)
[2022-08-31 08:05] LABS: Calcium 7.9 mg/dL (8.6-10.3); Magnesium 1.6 mg/dL (1.9-2.7); Potassium 3.8 mmol/L (3.5-5.0)
[2022-08-31] MEDS ORDERED: Magnesium Sulfate IV 3 GM in NS 0.9% 100 ml BAG 100 ML IVPB ONE (08:22)
[2022-08-31] MEDS: Potassium Chloride IV 20 MEQ in Lactated Ringers 1000 ml BAG 1,000 ML IVPB SCH ×2 (09:16→23:30)
[2022-08-31] MEDS: Magic MouthWash1-BEN/MAAL/LIDO 180 ML BTL SWISH SPIT SCH ×4 (09:19→21:47)
[2022-08-31] MEDS: Pantoprazole VIAL 40 MG VIAL IV SCH ×2 (09:21→21:47)
[2022-08-31] MEDS: Sucralfate 1 gm SUSP 1 GM/10 ML UDC PO SCH ×3 (09:24→21:40)
[2022-08-31] MEDS: cefTRIAXone 1 gm/50 mL D5W 1 GM/50 ML BAG IV SCH (17:39)
[2022-08-31] MEDS: Enoxaparin 40 MG/0.4 ML SYR SUBCUT SCH (17:42)
[2022-08-31] MEDS: Scopolamine 1 mg/72hr PATCH TRANSDERM PRN (23:28)
[2022-09-01] MEDS: Ondansetron 4 mg VIAL 2 MG/ML 2 ml VIAL IV PRN ×3 (03:14→17:41)
[2022-09-01] MEDS: Vancomycin 1,250 MG in NS 0.9% 250 ml 250 ML IVPB SCH ×2 (04:49→09:46)
[2022-09-01] MEDS: Potassium Chloride IV 20 MEQ in Lactated Ringers 1000 ml BAG 1,000 ML IVPB SCH (06:33)
[2022-09-01] MEDS ORDERED: D5LR 1000 ml BAG 1,000 ML IV SCH ×2 (08:00)
[2022-09-01 09:03] LABS: Potassium 4.3 mmol/L (3.5-5.0); Vancomycin Trough 24.4 mcg/mL; eGFR CKD-EPI 118.2 (>60)
[2022-09-01 09:04] LABS: Calcium 8.3 mg/dL (8.6-10.3); Magnesium 1.4 mg/dL (1.9-2.7); Phosphorus 3.1 mg/dL (2.5-5.0); eGFR CKD-EPI 118.2 (>60)
[2022-09-01] MEDS ORDERED: Vancomycin Trough Check NOTE FOLLOW UP ONE (09:30)
[2022-09-01] MEDS: Pantoprazole VIAL 40 MG VIAL IV SCH ×2 (09:34→21:12)
[2022-09-01] MEDS: Sucralfate 1 gm SUSP 1 GM/10 ML UDC PO SCH ×3 (09:35→21:13)
[2022-09-01] MEDS: Magic MouthWash1-BEN/MAAL/LIDO 180 ML BTL SWISH SPIT SCH ×4 (09:35→21:11)
[2022-09-01] MEDS ORDERED: Magnesium Sulf 4 GM/100 ML IV 4,000 MG/100 ML BAG IVPB ONE (09:52)
[2022-09-01] MEDS: Benzocaine/Menthol LOZ MT PRN (11:25)
[2022-09-01] MEDS: D5LR 20 MEQ KCL 1000 ml BAG 1,000 ML IV SCH (13:41)
[2022-09-01] MEDS: cefTRIAXone 1 gm/50 mL D5W 1 GM/50 ML BAG IV SCH (17:42)
[2022-09-01] MEDS: Enoxaparin 40 MG/0.4 ML SYR SUBCUT SCH (17:42)
[2022-09-01] MEDS: Vancomycin 1000 MG in NS 0.9% 250 ML IVPB SCH (19:19)
[2022-09-02] MEDS: D5LR 20 MEQ KCL 1000 ml BAG 1,000 ML IV SCH ×3 (01:50→21:46)
[2022-09-02] MEDS: Vancomycin 1000 MG in NS 0.9% 250 ML IVPB SCH ×3 (01:52→18:20)
[2022-09-02] MEDS: Ondansetron 4 mg VIAL 2 MG/ML 2 ml VIAL IV PRN ×3 (03:01→16:49)
[2022-09-02 08:44] LABS: Albumin/Globulin Ratio 1.1 (1-3); Calcium 8.3 mg/dL (8.6-10.3); Globulin 2.8 g/dL (2-4); Magnesium 1.3 mg/dL (1.9-2.7); Potassium 4.1 mmol/L (3.5-5.0); Total Bilirubin 0.9 mg/dL (0.2-1.0); Total Protein 5.8 g/dL (6.4-8.9); eGFR CKD-EPI 119.8 (>60)
[2022-09-02] MEDS: Pantoprazole VIAL 40 MG VIAL IV SCH ×2 (10:23→21:46)
[2022-09-02] MEDS: Magic MouthWash1-BEN/MAAL/LIDO 180 ML BTL SWISH SPIT SCH ×4 (10:23→21:45)
[2022-09-02] MEDS: Sucralfate 1 gm SUSP 1 GM/10 ML UDC PO SCH ×3 (10:24→21:46)
[2022-09-02] MEDS ORDERED: Magnesium Sulf 4 GM/100 ML IV 4,000 MG/100 ML BAG IVPB ONE (13:21)
[2022-09-02] MEDS: Enoxaparin 40 MG/0.4 ML SYR SUBCUT SCH (16:49)
[2022-09-02] MEDS: cefTRIAXone 1 gm/50 mL D5W 1 GM/50 ML BAG IV SCH (17:24)
[2022-09-03] MEDS: Vancomycin 1000 MG in NS 0.9% 250 ML IVPB SCH ×2 (02:54→11:25)
[2022-09-03] MEDS: Ondansetron 4 mg VIAL 2 MG/ML 2 ml VIAL IV PRN ×4 (05:16→22:51)
[2022-09-03 06:22] LABS: ABS Eosinophils 0.1 10^3/ul (0-0.6); ABS Lymphocytes 1.7 10^3/ul (1.0-4.8); ABS Monocytes 0.6 10^3/ul (0-0.8); ABS Neutrophils 2.3 10^3/ul (1.5-7.7); Eosinophil % 2.2 %; Hematocrit 38 % (42-52); Hemoglobin 13.4 g/dL (14.0-18.0); Lymphocyte % 35.9 %; Mean Corpuscular HGB Conc 35 g/dL (31-36); Mean Corpuscular Hemoglobin 34 pg (27-31); Mean Corpuscular Volume 97 fL (80-94); Mean Platelet Volume 8.8 fL (7.4-10.4); Platelet Count 327 10^3/uL (150-450); Red Blood Count 3.93 10^6 /uL (4.18-5.48); Red Cell Distribution Width 14 % (10-15); White Blood Count 4.7 10^3/uL (3.5-10.8)
[2022-09-03 06:40] LABS: Calcium 8.4 mg/dL (8.6-10.3); Magnesium 1.5 mg/dL (1.9-2.7); Phosphorus 4.4 mg/dL (2.5-5.0); Potassium 4.4 mmol/L (3.5-5.0); eGFR CKD-EPI 124.4 (>60)
[2022-09-03] MEDS ORDERED: Magnesium Sulf 4 GM/100 ML IV 4,000 MG/100 ML BAG IVPB ONE (07:32)
[2022-09-03] MEDS: Magic MouthWash1-BEN/MAAL/LIDO 180 ML BTL SWISH SPIT SCH ×4 (07:40→21:34)
[2022-09-03] MEDS: Pantoprazole VIAL 40 MG VIAL IV SCH ×2 (07:41→20:52)
[2022-09-03] MEDS: Sucralfate 1 gm SUSP 1 GM/10 ML UDC PO SCH ×3 (07:41→20:52)
[2022-09-03] MEDS ORDERED: Vancomycin Trough Check NOTE FOLLOW UP ONE (09:30)
[2022-09-03 12:55] LABS: C Reactive Protein 50.48 mg/L (<8.01)
[2022-09-03] MEDS: Enoxaparin 40 MG/0.4 ML SYR SUBCUT SCH (16:09)
[2022-09-04] MEDS: Scopolamine 1 mg/72hr PATCH TRANSDERM PRN (00:15)
[2022-09-04] MEDS: Ondansetron 4 mg VIAL 2 MG/ML 2 ml VIAL IV PRN ×2 (05:41→09:35)
[2022-09-04] MEDS ORDERED: Vancomycin 1000 MG in NS 0.9% 250 ML IVPB SCH (06:00)
[2022-09-04 06:56] LABS: Calcium 9.2 mg/dL (8.6-10.3); Magnesium 1.6 mg/dL (1.9-2.7); Potassium 4.3 mmol/L (3.5-5.0); eGFR CKD-EPI 118.2 (>60)
[2022-09-04] MEDS ORDERED: Magnesium Sulf 4 GM/100 ML IV 4,000 MG/100 ML BAG IVPB ONE (07:57)
[2022-09-04] MEDS: Pantoprazole VIAL 40 MG VIAL IV SCH (09:28)
[2022-09-04] MEDS: Sucralfate 1 gm SUSP 1 GM/10 ML UDC PO SCH (09:29)
[2022-09-04] MEDS: Magic MouthWash1-BEN/MAAL/LIDO 180 ML BTL SWISH SPIT SCH (09:30)
[2022-09-04 11:52] VITALS: BP 127/88
[2022-09-05] MEDS ORDERED: Vancomycin Trough Check NOTE FOLLOW UP ONE (05:30)
== END 2022-09-04 12:30 | disposition home or self-care (01) | DRG 282 ==
LOC: ED 14:12 → SUATTDRO 20:23 → EDHOLD 20:23 → SSU 08-26 19:26
PROVIDERS: ADMIT Internal Medicine; ATTEND Internal Medicine

== ENCOUNTER 2023-05-10 14:15 | Inpatient (IN) ==
[2023-05-10] MEDS ORDERED: Ondansetron 4 mg VIAL 2 MG/ML 2 ml VIAL IV ONE ×2 (17:16→18:17)
[2023-05-10] MEDS ORDERED: Lactated Ringers 1000 ml BAG 1,000 ML IV ONE (17:16)
[2023-05-10 17:38] LABS: Albumin 5.5 g/dL (3.2-5.2); Albumin/Globulin Ratio 1.2 (1-3); C Reactive Protein 50.83 mg/L (<8.01); Calcium 10.4 mg/dL (8.6-10.3); Creatinine, Serum 1.65 mg/dL (0.67-1.17); Globulin 4.6 g/dL (2-4); Potassium 3.5 mmol/L (3.5-5.0); Total Bilirubin 2.9 mg/dL (0.2-1.0); Total Protein 10.1 g/dL (6.4-8.9); eGFR CKD-EPI 52.8 (>60)
[2023-05-10 17:40] LABS: ABS Basophils 0.1 10^3/uL (0.0-0.1); ABS Lymphocytes 1.6 10^3/uL (1.0-4.8); ABS Neutrophils 8.3 10^3/uL (1.5-7.6); ABS Nucleated RBC 0.04 10^3/ul; Eosinophil % 0.1 %; Hematocrit 50.7 % (38-53); Hemoglobin 18.1 g/dL (13.2-16.3); Lymphocyte % 14.6 %; Mean Corpuscular Hemoglobin 35.6 pg (27-33); Mean Corpuscular Hgb Conc 35.7 g/dL (31-36); Mean Corpuscular Volume 99.6 fL (80-97); Mean Platelet Volume 8.9 fL (7.5-11.2); Nucleated Red Blood Cells % 0.3 /100 WBC (0.0-0.4); Platelet Count 230 10^3/uL (150-450); Red Blood Count 5.09 10^6/uL (4.06-5.63); Red Cell Distribution Width 12.6 % (12-17)
[2023-05-10] MEDS ORDERED: Iodixanol (CONTRAST) 320 MG/ML 100 ML SDV IV ONE (18:18)
[2023-05-10] MEDS ORDERED: Droperidol 5 MG/2 ML 2 ML VIAL IV ONE (20:43)
[2023-05-10] MEDS ORDERED: NS 0.9% 1000 ml BAG 1,000 ML IV ONE (20:43)
[2023-05-10] MEDS ORDERED: Ciprofloxacin 400mg IVPREMIX 400 MG/200 ML BAG IVPB ONE (21:11)
[2023-05-10] MEDS ORDERED: metroNIDAZOLE IV 500 MG/100ML 500 MG/100 ML BAG IVPB ONE (21:15)
[2023-05-10 22:09] LABS: Magnesium 1.3 mg/dL (1.9-2.7)
[2023-05-10] MEDS ORDERED: NS 0.9% 1000 ml BAG 1,000 ML IV SCH (22:45)
[2023-05-10] MEDS ORDERED: Scopolamine 1 mg/72hr PATCH TRANSDERM SCH (23:00)
[2023-05-10] MEDS ORDERED: Magnesium Sulf 4 GM/100 ML IV 4,000 MG/100 ML BAG IVPB ONE (23:30)
[2023-05-11] MEDS: Morphine 2 MG/ML SYRINGE IV PRN ×8 (01:38→23:22)
[2023-05-11] MEDS: metroNIDAZOLE IV 500 MG/100ML 500 MG/100 ML BAG IVPB SCH ×3 (05:03→20:44)
[2023-05-11 06:18] LABS: Albumin 3.9 g/dL (3.2-5.2); Albumin/Globulin Ratio 1.1 (1-3); Creatinine, Serum 1.08 mg/dL (0.67-1.17); Globulin 3.4 g/dL (2-4); Total Protein 7.3 g/dL (6.4-8.9); eGFR CKD-EPI 87.9 (>60)
[2023-05-11 06:19] LABS: INR 1.22 (0.83-1.13)
[2023-05-11 06:21] LABS: Potassium 2.7 mmol/L (3.5-5.0)
[2023-05-11] MEDS ORDERED: Potassium Chlor 20 meq TAB.ER PO ONE (06:31)
[2023-05-11] MEDS ORDERED: Potassium EFFERVES 25 meq TAB PO ONE ×2 (06:36→12:00)
[2023-05-11] MEDS: KCL 20 MEQ/100 ML IVPREMIX 20 MEQ/100 ML BAG IV SCH ×2 (06:49→14:09)
[2023-05-11 06:52] LABS: ABS Eosinophils 0.1 10^3/uL (0.0-0.5); ABS Lymphocytes 1.6 10^3/uL (1.0-4.8); ABS Monocytes 0.6 10^3/uL (0.0-1.1); ABS Neutrophils 5.2 10^3/uL (1.5-7.6); ABS Nucleated RBC 0.01 10^3/ul; Eosinophil % 1.4 %; Hematocrit 42.1 % (38-53); Hemoglobin 15.2 g/dL (13.2-16.3); Mean Corpuscular Hemoglobin 36.1 pg (27-33); Mean Corpuscular Hgb Conc 36.1 g/dL (31-36); Mean Platelet Volume 8.4 fL (7.5-11.2); Nucleated Red Blood Cells % 0.1 /100 WBC (0.0-0.4); Platelet Count 158 10^3/uL (150-450); Red Blood Count 4.21 10^6/uL (4.06-5.63); Red Cell Distribution Width 12.4 % (12-17); White Blood Count 7.3 10^3/uL (3.6-10.2)
[2023-05-11] MEDS: Benzocaine/Menthol LOZ PO PRN ×2 (08:56→17:54)
[2023-05-11] MEDS: NS 0.9% w/ 40 Meq KCL 1000 ML 1,000 ML IV SCH ×2 (08:58→17:54)
[2023-05-11] MEDS ORDERED: Ciprofloxacin 400mg IVPREMIX 400 MG/200 ML BAG IVPB SCH (10:00)
[2023-05-11] MEDS: cefTRIAXone 1 gm/50 mL D5W 1 GM/50 ML BAG IV SCH (11:53)
[2023-05-11] MEDS: Pantoprazole VIAL 40 MG VIAL IV SCH (12:00)
[2023-05-11 12:34] LABS: Calcium 8.1 mg/dL (8.6-10.3); Creatinine, Serum 0.95 mg/dL (0.67-1.17); Magnesium 2.1 mg/dL (1.9-2.7); Potassium 3.4 mmol/L (3.5-5.0); eGFR CKD-EPI 102.5 (>60)
[2023-05-11 19:51] LABS: Urine Appearance Clear; Urine Bilirubin Negative (Negative); Urine Blood Negative (Negative); Urine Color Yellow; Urine Glucose Negative (Negative); Urine Ketones 1+ (Negative); Urine Nitrite Negative (Negative); Urine Protein Negative (Negative); Urine Specific Gravity 1.009 (1.002-1.030); Urine Urobilinogen Positive (Negative)
[2023-05-12] MEDS: NS 0.9% w/ 40 Meq KCL 1000 ML 1,000 ML IV SCH (01:00)
[2023-05-12] MEDS: metroNIDAZOLE IV 500 MG/100ML 500 MG/100 ML BAG IVPB SCH ×3 (05:16→20:50)
[2023-05-12] MEDS: Morphine 2 MG/ML SYRINGE IV PRN ×4 (05:19→20:53)
[2023-05-12 06:04] LABS: ABS Eosinophils 0.2 10^3/uL (0.0-0.5); ABS Lymphocytes 1.3 10^3/uL (1.0-4.8); ABS Monocytes 0.5 10^3/uL (0.0-1.1); ABS Neutrophils 3.3 10^3/uL (1.5-7.6); Hematocrit 39.1 % (38-53); Hemoglobin 13.8 g/dL (13.2-16.3); Lymphocyte % 24.3 %; Mean Corpuscular Hemoglobin 35.7 pg (27-33); Mean Corpuscular Hgb Conc 35.2 g/dL (31-36); Mean Corpuscular Volume 101.3 fL (80-97); Mean Platelet Volume 8.8 fL (7.5-11.2); Platelet Count 143 10^3/uL (150-450); Red Blood Count 3.86 10^6/uL (4.06-5.63); Red Cell Distribution Width 12.3 % (12-17); White Blood Count 5.2 10^3/uL (3.6-10.2)
[2023-05-12 06:24] LABS: Albumin 3.5 g/dL (3.2-5.2); Albumin/Globulin Ratio 1.3 (1-3); Calcium 7.4 mg/dL (8.6-10.3); Creatinine, Serum 0.82 mg/dL (0.67-1.17); Globulin 2.8 g/dL (2-4); Magnesium 1.7 mg/dL (1.9-2.7); Potassium 4.5 mmol/L (3.5-5.0); Total Bilirubin 1.8 mg/dL (0.2-1.0); Total Protein 6.3 g/dL (6.4-8.9); eGFR CKD-EPI 112.5 (>60)
[2023-05-12] MEDS ORDERED: Magnesium Sulfate 2 gm BAG 2 GM/50 ML BAG IVPB ONE (08:56)
[2023-05-12] MEDS ORDERED: Prochlorperazine 5 mg/ml 2 ml VIAL (10 mg) IV PRN (09:06)
[2023-05-12] MEDS: Pantoprazole VIAL 40 MG VIAL IV SCH (10:15)
[2023-05-12] MEDS: Enoxaparin 40 MG/0.4 ML SYR SUBCUT SCH (10:45)
[2023-05-12] MEDS: cefTRIAXone 1 gm/50 mL D5W 1 GM/50 ML BAG IV SCH (12:16)
[2023-05-13] MEDS: metroNIDAZOLE IV 500 MG/100ML 500 MG/100 ML BAG IVPB SCH ×2 (05:20→13:51)
[2023-05-13] MEDS: Morphine 2 MG/ML SYRINGE IV PRN (06:05)
[2023-05-13 06:43] LABS: ABS Eosinophils 0.1 10^3/uL (0.0-0.5); ABS Lymphocytes 1.3 10^3/uL (1.0-4.8); ABS Monocytes 0.6 10^3/uL (0.0-1.1); ABS Nucleated RBC 0.01 10^3/ul; Eosinophil % 2.6 %; Hematocrit 42.3 % (38-53); Hemoglobin 15.1 g/dL (13.2-16.3); Lymphocyte % 25.6 %; Mean Corpuscular Hgb Conc 35.7 g/dL (31-36); Mean Corpuscular Volume 100.6 fL (80-97); Mean Platelet Volume 8.7 fL (7.5-11.2); Nucleated Red Blood Cells % 0.1 /100 WBC (0.0-0.4); Platelet Count 137 10^3/uL (150-450); Red Cell Distribution Width 12.6 % (12-17); White Blood Count 5.1 10^3/uL (3.6-10.2)
[2023-05-13 07:09] LABS: Albumin 3.6 g/dL (3.2-5.2); Albumin/Globulin Ratio 0.9 (1-3); Calcium 8.4 mg/dL (8.6-10.3); Creatinine, Serum 0.84 mg/dL (0.67-1.17); Globulin 3.8 g/dL (2-4); Magnesium 1.7 mg/dL (1.9-2.7); Potassium 3.7 mmol/L (3.5-5.0); Total Bilirubin 1.2 mg/dL (0.2-1.0); Total Protein 7.4 g/dL (6.4-8.9); eGFR CKD-EPI 111.7 (>60)
[2023-05-13] MEDS: Enoxaparin 40 MG/0.4 ML SYR SUBCUT SCH (08:50)
[2023-05-13] MEDS: Pantoprazole VIAL 40 MG VIAL IV SCH (08:51)
[2023-05-13] MEDS: cefTRIAXone 1 gm/50 mL D5W 1 GM/50 ML BAG IV SCH (11:58)
[2023-05-13 14:11] VITALS: BP 123/81
== END 2023-05-13 16:30 | disposition home or self-care (01) | DRG 244 ==
LOC: EDHOLD 14:15 → ED 14:15 → SUATTDRO 21:56 → SSU 05-11 00:26
PROVIDERS: ADMIT Internal Medicine; ATTEND Internal Medicine

== ENCOUNTER 2023-08-02 02:29 | Inpatient (IN) ==
[2023-08-02] MEDS ORDERED: Prochlorperazine 5 mg/ml 2 ml VIAL (10 mg) IV ONE (03:23)
[2023-08-02] MEDS ORDERED: Lactated Ringers 1000 ml BAG 1,000 ML IV ONE ×2 (03:23→04:54)
[2023-08-02 04:20] LABS: Hemoglobin 13.2 g/dL (13.2-16.3); Mean Corpuscular Hemoglobin 35.1 pg (27-33); Mean Corpuscular Hgb Conc 35.7 g/dL (31-36); Mean Corpuscular Volume 98.1 fL (80-97); Mean Platelet Volume 8.8 fL (7.5-11.2); Platelet Count 317 10^3/uL (150-450); Red Blood Count 3.77 10^6/uL (4.06-5.63); Red Cell Distribution Width 13.3 % (12-17); White Blood Count 13.8 10^3/uL (3.6-10.2)
[2023-08-02 04:39] LABS: ALT 23 U/L (7-52); AST 28 U/L (13-39); Albumin/Globulin Ratio 0.9 (1-3); Alkaline Phosphatase 94 U/L (35-149); Anion Gap 13 mmol/L (2-16); Blood Urea Nitrogen 36 mg/dL (6-24); CO2 Carbon Dioxide 25 mmol/L (22-32); Calcium 8.8 mg/dL (8.6-10.3); Chloride 88 mmol/L (101-111); Creatinine, Serum 1.87 mg/dL (0.67-1.17); Globulin 4.4 g/dL (2-4); Glucose 101 mg/dL (70-100); Lipase < 10 U/L (11.0-82.0); Potassium 3.4 mmol/L (3.5-5.0); Sodium 126 mmol/L (135-145); Total Protein 8.4 g/dL (6.4-8.9); eGFR CKD-EPI 45.5 (>60)
[2023-08-02 04:54] LABS: ABS Basophils 0.1 10^3/uL (0.0-0.1); ABS Monocytes 0.9 10^3/uL (0.0-1.1); ABS Neutrophils 11.9 10^3/uL (1.5-7.6); Eosinophil % 0.1 %; Lymphocyte % 6.9 %; RBC Morphology Normal (Normal)
[2023-08-02 04:57] LABS: Alcohol, S < 13 mg/dL (<13)
[2023-08-02] MEDS ORDERED: Iodixanol (CONTRAST) 320 MG/ML 100 ML SDV IV ONE (05:01)
[2023-08-02] MEDS ORDERED: Morphine 4 MG/ML VIAL (1 ml) IV ONE (06:23)
[2023-08-02] MEDS ORDERED: Piperacillin/Tazobac 3.375 BAG 3.375 GM/100 ML BAG IV ONE (06:23)
[2023-08-02] MEDS ORDERED: Lactated Ringers 1000 ml BAG 1,000 ML IV SCH (08:00)
[2023-08-02] MEDS: Ondansetron 4 mg VIAL 2 MG/ML 2 ml VIAL IV PRN ×3 (08:08→19:36)
[2023-08-02] MEDS: HYDROmorphone 1 MG/1 ML SYRINGE IV SLOW PU PRN ×2 (09:06→12:11)
[2023-08-02 11:46] LABS: Urine Appearance Clear; Urine Bilirubin Negative (Negative); Urine Blood 1+ (Negative); Urine Color Yellow; Urine Glucose Negative (Negative); Urine Ketones 1+ (Negative); Urine Nitrite Negative (Negative); Urine Protein 1+(30 mg/dL) (Negative); Urine Specific Gravity 1.042 (1.002-1.030); Urine Urobilinogen Negative (Negative)
[2023-08-02 11:48] LABS: Urine Bacteria Absent (Absent); Urine Red Blood Cell Trace(0-2/hpf) (Absent); Urine Squamous Epithelial Cell Present (Absent); Urine White Blood Cell 1+(6-10/hpf) (Absent)
[2023-08-02] MEDS: Piperacillin/Tazobac 3.375 BAG 3.375 GM/100 ML BAG IV SCH ×2 (12:12→21:48)
[2023-08-02] MEDS: D5W 1/2 NS 40 Meq KCL 1000 ml 1,000 ML IV SCH ×2 (13:54→21:17)
[2023-08-02] MEDS: Metoclopramide 5 MG/ML VIAL (10 mg) IV PRN ×2 (14:41→22:20)
[2023-08-03] MEDS: D5W 1/2 NS 40 Meq KCL 1000 ml 1,000 ML IV SCH ×4 (04:07→23:17)
[2023-08-03] MEDS: Ondansetron 4 mg VIAL 2 MG/ML 2 ml VIAL IV PRN ×4 (06:00→20:24)
[2023-08-03] MEDS: Piperacillin/Tazobac 3.375 BAG 3.375 GM/100 ML BAG IV SCH ×3 (06:04→14:27)
[2023-08-03 07:38] LABS: Hematocrit 31.9 % (38-53); Hemoglobin 11.3 g/dL (13.2-16.3); Mean Corpuscular Hemoglobin 35.1 pg (27-33); Mean Corpuscular Hgb Conc 35.5 g/dL (31-36); Mean Corpuscular Volume 98.8 fL (80-97); Mean Platelet Volume 8.3 fL (7.5-11.2); Platelet Count 204 10^3/uL (150-450); Red Blood Count 3.23 10^6/uL (4.06-5.63); Red Cell Distribution Width 13.4 % (12-17); White Blood Count 7.9 10^3/uL (3.6-10.2)
[2023-08-03 08:42] LABS: Calcium 7.6 mg/dL (8.6-10.3); Creatinine, Serum 1.25 mg/dL (0.67-1.17); Potassium 3.9 mmol/L (3.5-5.0); eGFR CKD-EPI 73.7 (>60)
[2023-08-03 08:47] LABS: ABS Eosinophils 0.1 10^3/uL (0.0-0.5); ABS Lymphocytes 0.9 10^3/uL (1.0-4.8); ABS Monocytes 0.8 10^3/uL (0.0-1.1); Eosinophil % 1.5 %; Lymphocyte % 11.1 %; RBC Morphology Normal (Normal)
[2023-08-03] MEDS ORDERED: Influenza vaccine *QUAD* *2023-24* 0.5 ML SYRINGE IM ONE (09:00)
[2023-08-03] MEDS: Metoclopramide 5 MG/ML VIAL (10 mg) IV PRN ×2 (09:20→16:34)
[2023-08-03] MEDS: Pantoprazole VIAL 40 MG VIAL IV SCH (10:07)
[2023-08-03 10:32] LABS: INR 1.51 (0.83-1.13)
[2023-08-03] MEDS ORDERED: Lorazepam PYXIS KEY PRN (12:26)
[2023-08-03] MEDS: LORazepam 2 mg VIAL 1 ml IV PUSH PRN ×2 (14:27→20:21)
[2023-08-04] MEDS: Ondansetron 4 mg VIAL 2 MG/ML 2 ml VIAL IV PRN ×3 (00:28→08:28)
[2023-08-04] MEDS: Metoclopramide 5 MG/ML VIAL (10 mg) IV PRN (00:29)
[2023-08-04] MEDS: D5W 1/2 NS 40 Meq KCL 1000 ml 1,000 ML IV SCH ×2 (05:36→13:27)
[2023-08-04] MEDS: Pantoprazole VIAL 40 MG VIAL IV SCH (08:28)
[2023-08-04] MEDS: Piperacillin/Tazobac 3.375 BAG 3.375 GM/100 ML BAG IV SCH ×3 (08:28→23:00)
[2023-08-04 09:26] LABS: ABS Basophils 0.1 10^3/uL (0.0-0.1); ABS Eosinophils 0.3 10^3/uL (0.0-0.5); ABS Monocytes 1.3 10^3/uL (0.0-1.1); ABS Neutrophils 6.1 10^3/uL (1.5-7.6); Eosinophil % 3.8 %; Hematocrit 32.3 % (38-53); Hemoglobin 11.6 g/dL (13.2-16.3); Lymphocyte % 11.4 %; Mean Corpuscular Hemoglobin 35.1 pg (27-33); Mean Corpuscular Hgb Conc 35.8 g/dL (31-36); Mean Corpuscular Volume 98.1 fL (80-97); Mean Platelet Volume 8.3 fL (7.5-11.2); Platelet Count 213 10^3/uL (150-450); Red Blood Count 3.29 10^6/uL (4.06-5.63); Red Cell Distribution Width 13.5 % (12-17); White Blood Count 8.8 10^3/uL (3.6-10.2)
[2023-08-04 10:17] LABS: Calcium 8.1 mg/dL (8.6-10.3); Creatinine, Serum 1.1 mg/dL (0.67-1.17)
[2023-08-04] MEDS: LORazepam 2 mg VIAL 1 ml IV PUSH PRN (13:21)
[2023-08-04] MEDS ORDERED: Ondansetron 4 mg VIAL 2 MG/ML 2 ml VIAL IV PRN (14:04)
[2023-08-04] MEDS ORDERED: fentaNYL 100 mcg/2 ml 50 MCG/ML VIAL IV PRN (14:04)
[2023-08-04] MEDS ORDERED: Naloxone 0.4 mg VIAL 0.4 mg/ml 1 ml VIAL IV PRN (14:04)
[2023-08-04] MEDS ORDERED: Scopolamine 1 mg/72hr PATCH ONE (14:13)
[2023-08-04] MEDS: Scopolamine 1 mg/72hr PATCH TRANSDERM SCH (14:17)
[2023-08-04] MEDS ORDERED: Propofol 10 MG/ML 20 ML BTL ONE (14:49)
[2023-08-04] MEDS ORDERED: Succinylcholine 200 mg VIAL 20 mg/ml 10 ml VIAL (200 mg) ONE (14:50)
[2023-08-04] MEDS ORDERED: Midazolam 2 mg/2 ml VIAL 1 mg/ml 2 ml VIAL (2 mg) ONE (14:51)
[2023-08-04] MEDS ORDERED: Rocuronium 50 mg VIAL 10 mg/ml 5 ml VIAL (50 mg) ONE ×2 (14:51→14:56)
[2023-08-04] MEDS ORDERED: fentaNYL 250 mcg/5 ml 50 MCG/ML 5 ml VIAL (250 MCG) ONE (14:52)
[2023-08-04] MEDS ORDERED: Bupivacaine 0.25% SDV PF 10 ML VIAL INJ ONE (14:56)
[2023-08-04] MEDS ORDERED: Lidocaine 1% w EPI 1:200,000 SDV 30 ML VIAL ONE (14:56)
[2023-08-04] MEDS ORDERED: HYDROmorphone 0.5 MG/0.5 ML SYRINGE ONE ×2 (16:30→19:13)
[2023-08-04] MEDS ORDERED: Ondansetron 4 mg VIAL 2 MG/ML 2 ml VIAL ONE (16:40)
[2023-08-04] MEDS ORDERED: Dexamethasone IV 4 MG/ML VIAL 1 ml VIAL ONE (16:40)
[2023-08-04] MEDS ORDERED: fentaNYL 100 mcg/2 ml 50 MCG/ML VIAL ONE (17:06)
[2023-08-04] MEDS ORDERED: Albumin Human 5% 25.0 GM/500 ML BTL IV ONE (17:17)
[2023-08-04] MEDS: HYDROmorphone PCA 20 MG/20 ML PCA.SYRING PCA SCH (20:25)
[2023-08-04] MEDS: NS 0.9% 1000 ml BAG 1,000 ML IV SCH (22:23)
[2023-08-04] MEDS ORDERED: ZOSYN 3.375 GM x ONE DOSE over 30 miuntes IV (23:15)
[2023-08-05] MEDS: Metoclopramide 5 MG/ML VIAL (10 mg) IV PRN (01:18)
[2023-08-05] MEDS: ZOSYN 3.375 GM Q8H per EXTENDED INFUSION IV SCH ×3 (03:53→19:42)
[2023-08-05] MEDS: NS 0.9% 1000 ml BAG 1,000 ML IV SCH ×2 (05:04→23:47)
[2023-08-05] MEDS: Piperacillin/Tazobac 3.375 BAG 3.375 GM/100 ML BAG IV SCH (07:48)
[2023-08-05 09:55] LABS: ABS Basophils 0.3 10^3/uL (0.0-0.1); ABS Lymphocytes 0.6 10^3/uL (1.0-4.8); ABS Neutrophils 8.9 10^3/uL (1.5-7.6); Hemoglobin 10.9 g/dL (13.2-16.3); Lymphocyte % 5.3 %; Mean Corpuscular Hgb Conc 35.1 g/dL (31-36); Mean Corpuscular Volume 99.6 fL (80-97); Mean Platelet Volume 8.5 fL (7.5-11.2); Platelet Count 222 10^3/uL (150-450); Red Blood Count 3.11 10^6/uL (4.06-5.63); White Blood Count 10.7 10^3/uL (3.6-10.2)
[2023-08-05 10:16] LABS: Calcium 7.4 mg/dL (8.6-10.3); Creatinine, Serum 0.83 mg/dL (0.67-1.17); Potassium 3.9 mmol/L (3.5-5.0); eGFR CKD-EPI 112.1 (>60)
[2023-08-05] MEDS: Pantoprazole VIAL 40 MG VIAL IV SCH (10:24)
[2023-08-05] MEDS: Enoxaparin 40 MG/0.4 ML SYR SUBCUT SCH (14:06)
[2023-08-06] MEDS: ZOSYN 3.375 GM Q8H per EXTENDED INFUSION IV SCH ×3 (04:46→21:02)
[2023-08-06] MEDS: NS 0.9% 1000 ml BAG 1,000 ML IV SCH ×2 (06:28→13:47)
[2023-08-06 07:13] LABS: ABS Eosinophils 0.2 10^3/uL (0.0-0.5); ABS Lymphocytes 1.1 10^3/uL (1.0-4.8); ABS Monocytes 0.9 10^3/uL (0.0-1.1); ABS Neutrophils 8.1 10^3/uL (1.5-7.6); Eosinophil % 1.5 %; Hematocrit 28.5 % (38-53); Hemoglobin 9.9 g/dL (13.2-16.3); Mean Corpuscular Hemoglobin 34.7 pg (27-33); Mean Corpuscular Hgb Conc 34.9 g/dL (31-36); Mean Corpuscular Volume 99.4 fL (80-97); Mean Platelet Volume 8.5 fL (7.5-11.2); Platelet Count 235 10^3/uL (150-450); Red Blood Count 2.87 10^6/uL (4.06-5.63); Red Cell Distribution Width 13.9 % (12-17); White Blood Count 10.3 10^3/uL (3.6-10.2)
[2023-08-06 07:29] LABS: Calcium 7.3 mg/dL (8.6-10.3); Creatinine, Serum 0.79 mg/dL (0.67-1.17); Magnesium 1.4 mg/dL (1.9-2.7); Phosphorus 2.1 mg/dL (2.5-5.0); Potassium 3.5 mmol/L (3.5-5.0); eGFR CKD-EPI 113.7 (>60)
[2023-08-06] MEDS ORDERED: Magnesium Sulf 4 GM/100 ML IV 4,000 MG/100 ML BAG IVPB ONE (08:16)
[2023-08-06] MEDS ORDERED: Potassium Phosphate IV 15 MMOL in NS 0.9% 250 ml 250 ML IVPB ONE (09:00)
[2023-08-06] MEDS: Pantoprazole VIAL 40 MG VIAL IV SCH (10:59)
[2023-08-06] MEDS: Enoxaparin 40 MG/0.4 ML SYR SUBCUT SCH (11:05)
[2023-08-06] MEDS: Metoclopramide 5 MG/ML VIAL (10 mg) IV PRN (21:13)
[2023-08-07] MEDS: NS 0.9% 1000 ml BAG 1,000 ML IV SCH ×3 (01:17→18:22)
[2023-08-07] MEDS: ZOSYN 3.375 GM Q8H per EXTENDED INFUSION IV SCH ×3 (04:01→22:28)
[2023-08-07 07:49] LABS: ABS Eosinophils 0.3 10^3/uL (0.0-0.5); ABS Lymphocytes 1.1 10^3/uL (1.0-4.8); ABS Monocytes 0.8 10^3/uL (0.0-1.1); ABS Neutrophils 7.7 10^3/uL (1.5-7.6); Eosinophil % 2.8 %; Hematocrit 31.4 % (38-53); Mean Corpuscular Hemoglobin 34.5 pg (27-33); Mean Corpuscular Hgb Conc 34.9 g/dL (31-36); Mean Corpuscular Volume 98.9 fL (80-97); Mean Platelet Volume 8.3 fL (7.5-11.2); Platelet Count 293 10^3/uL (150-450); Red Blood Count 3.17 10^6/uL (4.06-5.63); Red Cell Distribution Width 14.3 % (12-17); White Blood Count 9.8 10^3/uL (3.6-10.2)
[2023-08-07] MEDS: HYDROmorphone PCA 20 MG/20 ML PCA.SYRING PCA SCH (08:23)
[2023-08-07 08:37] LABS: Calcium 7.2 mg/dL (8.6-10.3); Creatinine, Serum 0.71 mg/dL (0.67-1.17); Magnesium 1.7 mg/dL (1.9-2.7); Phosphorus 3.2 mg/dL (2.5-5.0); Potassium 3.4 mmol/L (3.5-5.0); eGFR CKD-EPI 117.5 (>60)
[2023-08-07] MEDS ORDERED: Magnesium Sulfate IV 1GM/100ML 1 GM/100 ML BAG IV ONE (08:52)
[2023-08-07] MEDS ORDERED: KCL 10 MEQ/50 ML IVPREMIX 10 MEQ/50 ML BAG IV ONE (08:53)
[2023-08-07] MEDS: Pantoprazole VIAL 40 MG VIAL IV SCH (09:46)
[2023-08-07] MEDS: Enoxaparin 40 MG/0.4 ML SYR SUBCUT SCH (09:53)
[2023-08-07] MEDS: Scopolamine 1 mg/72hr PATCH TRANSDERM SCH (14:54)
[2023-08-08] MEDS: NS 0.9% 1000 ml BAG 1,000 ML IV SCH ×4 (01:31→21:53)
[2023-08-08] MEDS: ZOSYN 3.375 GM Q8H per EXTENDED INFUSION IV SCH ×3 (05:56→20:34)
[2023-08-08 06:55] LABS: ABS Basophils 0.1 10^3/uL (0.0-0.1); ABS Eosinophils 0.5 10^3/uL (0.0-0.5); ABS Lymphocytes 1.3 10^3/uL (1.0-4.8); ABS Monocytes 0.9 10^3/uL (0.0-1.1); ABS Neutrophils 5.9 10^3/uL (1.5-7.6); Eosinophil % 5.7 %; Hematocrit 31.2 % (38-53); Hemoglobin 10.9 g/dL (13.2-16.3); Lymphocyte % 15.3 %; Mean Corpuscular Hemoglobin 34.6 pg (27-33); Mean Corpuscular Hgb Conc 34.9 g/dL (31-36); Mean Corpuscular Volume 99.3 fL (80-97); Mean Platelet Volume 8.3 fL (7.5-11.2); Platelet Count 317 10^3/uL (150-450); Red Blood Count 3.14 10^6/uL (4.06-5.63); Red Cell Distribution Width 14.1 % (12-17); White Blood Count 8.6 10^3/uL (3.6-10.2)
[2023-08-08 07:14] LABS: Calcium 7.8 mg/dL (8.6-10.3); Creatinine, Serum 0.66 mg/dL (0.67-1.17); Magnesium 1.3 mg/dL (1.9-2.7); Phosphorus 3.1 mg/dL (2.5-5.0); Potassium 3.8 mmol/L (3.5-5.0); eGFR CKD-EPI 120.1 (>60)
[2023-08-08] MEDS: Pantoprazole VIAL 40 MG VIAL IV SCH (09:01)
[2023-08-08] MEDS: Enoxaparin 40 MG/0.4 ML SYR SUBCUT SCH (10:54)
[2023-08-08] MEDS: LORazepam 2 mg VIAL 1 ml IV PUSH PRN ×2 (12:39→20:33)
[2023-08-08] MEDS: Ondansetron 4 mg VIAL 2 MG/ML 2 ml VIAL IV PRN (21:06)
[2023-08-08] MEDS: Metoclopramide 5 MG/ML VIAL (10 mg) IV PRN (23:30)
[2023-08-09] MEDS: ZOSYN 3.375 GM Q8H per EXTENDED INFUSION IV SCH ×3 (04:25→19:43)
[2023-08-09] MEDS: NS 0.9% 1000 ml BAG 1,000 ML IV SCH ×3 (04:43→19:30)
[2023-08-09] MEDS: Pantoprazole VIAL 40 MG VIAL IV SCH (08:05)
[2023-08-09] MEDS: LORazepam 2 mg VIAL 1 ml IV PUSH PRN ×3 (09:46→21:32)
[2023-08-09] MEDS: Enoxaparin 40 MG/0.4 ML SYR SUBCUT SCH (12:07)
[2023-08-10] MEDS: HYDROmorphone PCA 20 MG/20 ML PCA.SYRING PCA SCH (01:03)
[2023-08-10] MEDS: NS 0.9% 1000 ml BAG 1,000 ML IV SCH (02:05)
[2023-08-10] MEDS: ZOSYN 3.375 GM Q8H per EXTENDED INFUSION IV SCH ×3 (03:58→22:02)
[2023-08-10] MEDS ORDERED: HYDROmorphone 1 MG/1 ML SYRINGE IV SLOW PU PRN (07:58)
[2023-08-10] MEDS: Pantoprazole VIAL 40 MG VIAL IV SCH (09:03)
[2023-08-10] MEDS: Enoxaparin 40 MG/0.4 ML SYR SUBCUT SCH (09:04)
[2023-08-10] MEDS: HYDROmorphone 0.5 MG/0.5 ML SYRINGE IV SLOW PU PRN ×2 (13:26→21:59)
[2023-08-10] MEDS: Scopolamine 1 mg/72hr PATCH TRANSDERM SCH (15:20)
[2023-08-10] MEDS: Ondansetron 4 mg VIAL 2 MG/ML 2 ml VIAL IV PRN (21:17)
[2023-08-11] MEDS: ZOSYN 3.375 GM Q8H per EXTENDED INFUSION IV SCH ×3 (04:54→23:34)
[2023-08-11] MEDS: Pantoprazole VIAL 40 MG VIAL IV SCH (08:08)
[2023-08-11] MEDS: Ondansetron 4 mg VIAL 2 MG/ML 2 ml VIAL IV PRN (09:48)
[2023-08-11] MEDS: Enoxaparin 40 MG/0.4 ML SYR SUBCUT SCH (13:07)
[2023-08-11] MEDS: HYDROmorphone 0.5 MG/0.5 ML SYRINGE IV SLOW PU PRN (18:17)
[2023-08-12] MEDS: Ondansetron 4 mg VIAL 2 MG/ML 2 ml VIAL IV PRN ×2 (03:17→09:06)
[2023-08-12 08:01] LABS: Calcium 8.5 mg/dL (8.6-10.3); Creatinine, Serum 0.85 mg/dL (0.67-1.17); Magnesium 1.4 mg/dL (1.9-2.7); Potassium 3.6 mmol/L (3.5-5.0); eGFR CKD-EPI 111.3 (>60)
[2023-08-12] MEDS: ZOSYN 3.375 GM Q8H per EXTENDED INFUSION IV SCH (08:32)
[2023-08-12] MEDS: Pantoprazole VIAL 40 MG VIAL IV SCH (08:41)
[2023-08-12] MEDS: Enoxaparin 40 MG/0.4 ML SYR SUBCUT SCH (13:02)
[2023-08-12] MEDS: Metoclopramide 5 MG/ML VIAL (10 mg) IV PRN (16:34)
[2023-08-12] MEDS: Amoxicillin/Clavul 875/125 TAB (Augmentin 875 tab) PO SCH (20:06)
[2023-08-13] MEDS ORDERED: Amoxicillin/Clavul ORALSYR 80 MG/ML (400 MG/5 ML) PO SCH (10:00)
[2023-08-13 10:01] VITALS: BP 145/88
[2023-08-13] MEDS: Pantoprazole VIAL 40 MG VIAL IV SCH (10:37)
[2023-08-13] MEDS: Enoxaparin 40 MG/0.4 ML SYR SUBCUT SCH (10:37)
[2023-08-13] MEDS: Amoxicillin/Clavul 875/125 TAB (Augmentin 875 tab) PO SCH (12:17)
[2023-08-13] MEDS: Scopolamine 1 mg/72hr PATCH TRANSDERM SCH (14:12)
== END 2023-08-13 17:45 | disposition home or self-care (01) | DRG 711 ==
LOC: ED 02:29 → EDHOLD 07:42 → SSU 18:15
PROVIDERS: ADMIT Surgery; ATTEND Surgery

== ENCOUNTER 2023-09-25 16:50 | Inpatient (IN) ==
[2023-09-25 18:33] LABS: ABS Basophils 0.1 10^3/uL (0.0-0.1); ABS Eosinophils 0.2 10^3/uL (0.0-0.5); ABS Lymphocytes 2.9 10^3/uL (1.0-4.8); ABS Monocytes 0.7 10^3/uL (0.0-1.1); ABS Neutrophils 4.3 10^3/uL (1.5-7.6); Eosinophil % 1.9 %; Hematocrit 23.2 % (38-53); Hemoglobin 8.3 g/dL (13.2-16.3); Lymphocyte % 35.7 %; Mean Corpuscular Hemoglobin 31.3 pg (27-33); Mean Corpuscular Hgb Conc 35.8 g/dL (31-36); Mean Corpuscular Volume 87.5 fL (80-97); Mean Platelet Volume 8.6 fL (7.5-11.2); Platelet Count 387 10^3/uL (150-450); Red Blood Count 2.66 10^6/uL (4.06-5.63); Red Cell Distribution Width 14.5 % (12-17); White Blood Count 8.2 10^3/uL (3.6-10.2)
[2023-09-25 18:36] LABS: INR 1.27 (0.83-1.13)
[2023-09-25 18:53] LABS: Albumin 4.1 g/dL (3.2-5.2); Albumin/Globulin Ratio 1.1 (1-3); C Reactive Protein 4.59 mg/L (<8.01); Calcium 9.5 mg/dL (8.6-10.3); Creatinine, Serum 1.37 mg/dL (0.67-1.17); Globulin 3.9 g/dL (2-4); Potassium 4.2 mmol/L (3.5-5.0); Total Bilirubin 0.3 mg/dL (0.2-1.0); eGFR CKD-EPI 66.1 (>60)
[2023-09-25] MEDS ORDERED: NS 0.9% 1000 ml BAG 1,000 ML IV ONE (20:40)
[2023-09-25] MEDS ORDERED: Pantoprazole 80 mg in NS BAG 80 MG/250 ML BAG IV ONE (21:15)
[2023-09-25] MEDS ORDERED: Ondansetron 4 mg VIAL 2 MG/ML 2 ml VIAL IV ONE (21:17)
[2023-09-25] MEDS ORDERED: Iodixanol (CONTRAST) 320 MG/ML 100 ML SDV IV ONE (21:50)
[2023-09-26 00:17] LABS: Rapid COVID-19 Molecular Undetected (Undetected)
[2023-09-26 01:12] LABS: Influenza A Molecular Negative (Negative); Influenza B Molecular Negative (Negative)
[2023-09-26] MEDS ORDERED: Morphine 4 MG/ML VIAL (1 ml) IV ONE (01:43)
[2023-09-26] MEDS ORDERED: Ondansetron 4 mg VIAL 2 MG/ML 2 ml VIAL IV PRN (02:17)
[2023-09-26] MEDS ORDERED: Acetaminophen IV 1 GM/100ML 1,000 MG/100 ML BAG IV PRN (04:13)
[2023-09-26] MEDS: Morphine 2 MG/ML SYRINGE IV PRN ×4 (05:03→16:36)
[2023-09-26 05:48] LABS: ABS Eosinophils 0.3 10^3/uL (0.0-0.5); ABS Lymphocytes 2.6 10^3/uL (1.0-4.8); ABS Monocytes 0.6 10^3/uL (0.0-1.1); ABS Neutrophils 4.4 10^3/uL (1.5-7.6); Eosinophil % 3.4 %; Hematocrit 24.7 % (38-53); Lymphocyte % 33.3 %; Mean Corpuscular Hemoglobin 31.6 pg (27-33); Mean Corpuscular Hgb Conc 36.4 g/dL (31-36); Mean Corpuscular Volume 86.8 fL (80-97); Mean Platelet Volume 8.2 fL (7.5-11.2); Platelet Count 277 10^3/uL (150-450); Red Blood Count 2.85 10^6/uL (4.06-5.63); Red Cell Distribution Width 13.5 % (12-17); White Blood Count 7.9 10^3/uL (3.6-10.2)
[2023-09-26 06:01] LABS: INR 1.3 (0.83-1.13)
[2023-09-26 06:05] LABS: Calcium 8.8 mg/dL (8.6-10.3); Creatinine, Serum 1.44 mg/dL (0.67-1.17); Magnesium 1.5 mg/dL (1.9-2.7); Potassium 3.8 mmol/L (3.5-5.0); eGFR CKD-EPI 62.2 (>60)
[2023-09-26] MEDS ORDERED: fentaNYL 100 mcg/2 ml 50 MCG/ML VIAL ONE ×2 (07:05→09:21)
[2023-09-26] MEDS ORDERED: Midazolam 10 mg/10 ml VIAL 1 mg/ml 10 ml VIAL (10 mg) ONE ×2 (07:05→09:21)
[2023-09-26 16:34] LABS: ABS Eosinophils 0.3 10^3/uL (0.0-0.5); ABS Lymphocytes 1.7 10^3/uL (1.0-4.8); ABS Monocytes 0.5 10^3/uL (0.0-1.1); ABS Neutrophils 5.2 10^3/uL (1.5-7.6); ABS Nucleated RBC 0.01 10^3/ul; Eosinophil % 3.3 %; Hematocrit 23.1 % (38-53); Hemoglobin 8.4 g/dL (13.2-16.3); Lymphocyte % 22.3 %; Mean Corpuscular Hemoglobin 31.5 pg (27-33); Mean Corpuscular Hgb Conc 36.2 g/dL (31-36); Mean Corpuscular Volume 86.9 fL (80-97); Mean Platelet Volume 7.7 fL (7.5-11.2); Nucleated Red Blood Cells % 0.1 %/100WBC (0.0-0.8); Platelet Count 259 10^3/uL (150-450); Red Blood Count 2.66 10^6/uL (4.06-5.63); Red Cell Distribution Width 14.1 % (12-17); White Blood Count 7.7 10^3/uL (3.6-10.2)
[2023-09-27] MEDS ORDERED: Morphine 2 MG/ML SYRINGE IV ONE (01:22)
[2023-09-27] MEDS: Benzocaine/Menthol LOZ PO PRN ×2 (01:47→14:10)
[2023-09-27] MEDS ORDERED: Pantoprazole VIAL 40 MG VIAL IV SCH (09:00)
[2023-09-27 10:45] LABS: ABS Eosinophils 0.3 10^3/uL (0.0-0.5); ABS Lymphocytes 1.6 10^3/uL (1.0-4.8); ABS Monocytes 0.5 10^3/uL (0.0-1.1); ABS Neutrophils 4.8 10^3/uL (1.5-7.6); ABS Nucleated RBC 0.01 10^3/ul; Eosinophil % 3.6 %; Hematocrit 22.3 % (38-53); Hemoglobin 8.2 g/dL (13.2-16.3); Lymphocyte % 22.6 %; Mean Corpuscular Hemoglobin 32.3 pg (27-33); Mean Corpuscular Hgb Conc 36.9 g/dL (31-36); Mean Corpuscular Volume 87.4 fL (80-97); Mean Platelet Volume 8.1 fL (7.5-11.2); Nucleated Red Blood Cells % 0.1 %/100WBC (0.0-0.8); Platelet Count 247 10^3/uL (150-450); Red Blood Count 2.55 10^6/uL (4.06-5.63); Red Cell Distribution Width 13.8 % (12-17); White Blood Count 7.2 10^3/uL (3.6-10.2)
[2023-09-27 11:02] LABS: Calcium 8.8 mg/dL (8.6-10.3); Creatinine, Serum 1.22 mg/dL (0.67-1.17); Potassium 3.4 mmol/L (3.5-5.0); eGFR CKD-EPI 75.9 (>60)
[2023-09-27] MEDS ORDERED: Magnesium Sulf 4 GM/100 ML IV 4,000 MG/100 ML BAG IVPB ONE (11:02)
[2023-09-27] MEDS: Sucralfate 1 gm SUSP 1 GM/10 ML UDC PO SCH ×2 (11:58→16:40)
[2023-09-27] MEDS: Morphine 2 MG/ML SYRINGE IV PRN ×3 (16:40→23:53)
[2023-09-27 16:57] LABS: Hematocrit 20.6 % (38-53); Hemoglobin 7.4 g/dL (13.2-16.3)
[2023-09-27] MEDS ORDERED: Amoxicillin/Clavul 500/125 TAB (Augmentin 500 mg tab) PO SCH (21:00)
[2023-09-27] MEDS: Amoxicillin/Clavul ORALSYR 80 MG/ML (400 MG/5 ML) PO SCH (23:43)
[2023-09-28] MEDS: Morphine 2 MG/ML SYRINGE IV PRN ×7 (03:09→23:25)
[2023-09-28] MEDS: Benzocaine/Menthol LOZ PO PRN (06:28)
[2023-09-28 07:00] LABS: ABS Eosinophils 0.2 10^3/uL (0.0-0.5); ABS Lymphocytes 2.1 10^3/uL (1.0-4.8); ABS Monocytes 0.6 10^3/uL (0.0-1.1); ABS Neutrophils 3.9 10^3/uL (1.5-7.6); ABS Nucleated RBC 0.01 10^3/ul; Eosinophil % 2.8 %; Hematocrit 25.7 % (38-53); Hemoglobin 9.2 g/dL (13.2-16.3); Lymphocyte % 31.5 %; Mean Corpuscular Hemoglobin 31.2 pg (27-33); Mean Corpuscular Hgb Conc 35.9 g/dL (31-36); Mean Corpuscular Volume 86.9 fL (80-97); Mean Platelet Volume 8.2 fL (7.5-11.2); Nucleated Red Blood Cells % 0.1 %/100WBC (0.0-0.8); Platelet Count 244 10^3/uL (150-450); Red Blood Count 2.96 10^6/uL (4.06-5.63); Red Cell Distribution Width 14.1 % (12-17); White Blood Count 6.8 10^3/uL (3.6-10.2)
[2023-09-28 07:14] LABS: Calcium 8.5 mg/dL (8.6-10.3); Creatinine, Serum 1.12 mg/dL (0.67-1.17); Magnesium 1.6 mg/dL (1.9-2.7); Potassium 3.4 mmol/L (3.5-5.0); eGFR CKD-EPI 84.1 (>60)
[2023-09-28] MEDS ORDERED: Magnesium Sulf 4 GM/100 ML IV 4,000 MG/100 ML BAG IVPB ONE (07:33)
[2023-09-28] MEDS: Amoxicillin/Clavul ORALSYR 80 MG/ML (400 MG/5 ML) PO SCH ×2 (08:06→20:31)
[2023-09-28] MEDS: Sucralfate 1 gm SUSP 1 GM/10 ML UDC PO SCH ×3 (08:07→16:24)
[2023-09-28] MEDS: KCL 20 MEQ/100 ML IVPREMIX 20 MEQ/100 ML BAG IV SCH ×3 (11:25→16:24)
[2023-09-29] MEDS: Morphine 2 MG/ML SYRINGE IV PRN (05:04)
[2023-09-29] MEDS: Sucralfate 1 gm SUSP 1 GM/10 ML UDC PO SCH ×2 (07:44→11:48)
[2023-09-29 08:15] LABS: Hemoglobin 9.7 g/dL (13.2-16.3); Mean Corpuscular Hemoglobin 31.6 pg (27-33); Mean Corpuscular Hgb Conc 35.8 g/dL (31-36); Mean Corpuscular Volume 88.1 fL (80-97); Mean Platelet Volume 7.8 fL (7.5-11.2); Platelet Count 265 10^3/uL (150-450); Red Blood Count 3.07 10^6/uL (4.06-5.63); Red Cell Distribution Width 14.3 % (12-17); White Blood Count 6.7 10^3/uL (3.6-10.2)
[2023-09-29 08:35] LABS: Calcium 8.9 mg/dL (8.6-10.3); Creatinine, Serum 1.06 mg/dL (0.67-1.17); Potassium 4.2 mmol/L (3.5-5.0); eGFR CKD-EPI 89.9 (>60)
[2023-09-29] MEDS: Benzocaine/Menthol LOZ PO PRN (09:06)
[2023-09-29] MEDS: Amoxicillin/Clavul ORALSYR 80 MG/ML (400 MG/5 ML) PO SCH (09:07)
[2023-09-29 09:23] LABS: Magnesium 1.6 mg/dL (1.9-2.7)
[2023-09-29 13:52] VITALS: BP 100/67
[2023-10-01 03:06] LABS: Helicobacter pylori Result Not Detected; Specimen Source STOOL
== END 2023-09-29 17:45 | disposition home or self-care (01) | DRG 241 ==
LOC: ED 16:50 → SUATTDRO 09-26 02:28 → EDHOLD 09-26 02:28 → MED 09-26 02:28
PROVIDERS: ADMIT Internal Medicine; ATTEND Family Medicine

== ENCOUNTER 2023-10-05 07:58 | Inpatient (IN) ==
[~2023-10-05 07:58] MED LIST: Buffered Lidocaine 1% SYRIN 1 ml INTRADERM ONE; Lactated Ringers 1000 ml BAG 1,000 ML IV SCH; Scopolamine 1 mg/72hr PATCH TRANSDERM ONE
[2023-10-05] MEDS ORDERED: Scopolamine 1 mg/72hr PATCH ONE (08:22)
[2023-10-05] MEDS ORDERED: ceFOXitin 2 GM IVPREMIX 2 GM/50 ML BAG ONE (08:23)
[2023-10-05 08:34] LABS: Rapid COVID-19 Molecular Undetected (Undetected)
[2023-10-05] MEDS ORDERED: Propofol 10 MG/ML 20 ML BTL IV ONE (09:53)
[2023-10-05] MEDS ORDERED: Dexamethasone IV 4 MG/ML VIAL 1 ml VIAL IV SLOW PU ONE (09:53)
[2023-10-05] MEDS ORDERED: Lidocaine 2% PF 5 ML VIAL INJ ONE (09:53)
[2023-10-05] MEDS ORDERED: Ondansetron 4 mg VIAL 2 MG/ML 2 ml VIAL IV ONE (09:53)
[2023-10-05] MEDS ORDERED: Lidocaine 1% w EPI 1:200,000 SDV 30 ML VIAL ONE (09:56)
[2023-10-05] MEDS ORDERED: Rocuronium 50 mg VIAL 10 mg/ml 5 ml VIAL (50 mg) INJ ONE (11:28)
[2023-10-05] MEDS ORDERED: Ondansetron 4 mg VIAL 2 MG/ML 2 ml VIAL IV PRN ×2 (12:08→12:16)
[2023-10-05] MEDS ORDERED: Naloxone 0.4 mg VIAL 0.4 mg/ml 1 ml VIAL IV PRN ×2 (12:08)
[2023-10-05] MEDS ORDERED: Ondansetron 4 mg VIAL 2 MG/ML 2 ml VIAL ONE (12:09)
[2023-10-05] MEDS ORDERED: HYDROmorphone 1 MG/1 ML SYRINGE ONE (12:15)
[2023-10-05] MEDS: HYDROmorphone 0.5 MG/0.5 ML SYRINGE IV ONE ×2 (12:22→12:36)
[2023-10-05] MEDS ORDERED: fentaNYL 100 mcg/2 ml 50 MCG/ML VIAL ONE (12:24)
[2023-10-05] MEDS: fentaNYL 100 mcg/2 ml 50 MCG/ML VIAL IV PRN ×4 (12:25→13:05)
[2023-10-05] MEDS: Morphine 2 MG/ML SYRINGE IV PRN ×3 (14:37→20:47)
[2023-10-05] MEDS: Sucralfate 1 gm SUSP 1 GM/10 ML UDC PO SCH (17:40)
[2023-10-05] MEDS: oxyCODONE/Acetamin 5/325 mg TAB PO PRN (17:42)
[2023-10-06] MEDS: Morphine 2 MG/ML SYRINGE IV PRN ×5 (00:49→21:30)
[2023-10-06] MEDS: oxyCODONE/Acetamin 5/325 mg TAB PO PRN ×3 (05:13→19:39)
[2023-10-06 06:09] LABS: ABS Lymphocytes 1.6 10^3/uL (1.0-4.8); ABS Monocytes 0.8 10^3/uL (0.0-1.1); ABS Neutrophils 13.2 10^3/uL (1.5-7.6); ABS Nucleated RBC 0.01 10^3/ul; Eosinophil % 0.1 %; Hematocrit 27.9 % (38-53); Hemoglobin 9.8 g/dL (13.2-16.3); Lymphocyte % 10.4 %; Mean Corpuscular Volume 88.5 fL (80-97); Mean Platelet Volume 7.7 fL (7.5-11.2); Nucleated Red Blood Cells % 0.1 %/100WBC (0.0-0.8); Platelet Count 412 10^3/uL (150-450); Red Blood Count 3.15 10^6/uL (4.06-5.63); Red Cell Distribution Width 13.8 % (12-17); White Blood Count 15.7 10^3/uL (3.6-10.2)
[2023-10-06 06:26] LABS: Calcium 9.2 mg/dL (8.6-10.3); Creatinine, Serum 1.02 mg/dL (0.67-1.17); eGFR CKD-EPI 94.1 (>60)
[2023-10-06] MEDS: Sucralfate 1 gm SUSP 1 GM/10 ML UDC PO SCH ×3 (07:31→15:55)
[2023-10-07] MEDS: oxyCODONE/Acetamin 5/325 mg TAB PO PRN ×4 (03:09→20:03)
[2023-10-07] MEDS: Morphine 2 MG/ML SYRINGE IV PRN ×4 (05:22→21:38)
[2023-10-07] MEDS: Sucralfate 1 gm SUSP 1 GM/10 ML UDC PO SCH ×3 (08:42→16:32)
[2023-10-08] MEDS: oxyCODONE/Acetamin 5/325 mg TAB PO PRN ×3 (00:32→09:26)
[2023-10-08] MEDS: Morphine 2 MG/ML SYRINGE IV PRN ×3 (02:41→11:21)
[2023-10-08] MEDS: Sucralfate 1 gm SUSP 1 GM/10 ML UDC PO SCH ×2 (08:06→12:20)
[2023-10-08 14:13] VITALS: BP 99/77
== END 2023-10-08 16:15 | disposition home or self-care (01) | DRG 223 ==
LOC: AA 07:58 → SSU 12:16
PROVIDERS: ADMIT Surgery; ATTEND Surgery